=== PATIENT | female | born 1960 | race Caucasian/White ===

== ENCOUNTER 2022-05-30 07:55 | Outpatient (REF) | payer OTHER, SELFPAY | END 2022-05-30 07:56 | disposition home or self-care (01) | LOC: HO.SH 07:55 | PROVIDERS: Visit Provider Physician Assistant | DX: Z01.118 Encounter for examination of ears and hearing with other abnormal findings (principal); H90.3 Sensorineural hearing loss, bilateral | CPT/HCPCS: 92557; 92567; 92588 ==

== ENCOUNTER 2023-04-09 13:05 | Outpatient (AMB) | payer OTHER, SELFPAY ==
--- NOTE | 2023-04-09 13:07 | A.OFFVIS_ITS ---
Intake Intake Visit Reasons: Hx of stones (old Dr. Álvarez pt) Intake Note: New Patient presents for initial visit history of stones (previous Dr. Álvarez patient) Urology Medications: none Blood Thinner: none Service Employee Required: No Accompanied by: Self / Same As Patient Allergies No Known Allergies [No Known Allergies*] Allergy (Unverified 04/09/23 13:24) Medication List - Last Reconciled 04/09/23 by JUS Barboza alendronate 35 mg PO QWEEK cholecalciferol (vitamin D3) 100 mcg PO DAILY dicyclomine 10 mg PO Q6H PRN fluticasone propionate 50 mcg/actuation sprays intranasal loratadine (Claritin) 10 mg PO DAILY omeprazole 20 mg PO QAM HPI HPI Comments History of Present Illness Details Ivet Garcia is a very pleasant 62-year-old female patient of Dr. Myers. She has a past medical history of osteoporosis, GERD, and seasonal allergies. She presents to the office today as a new patient for her longstanding history of nephrolithiasis. In discussion with the patient today she reports to be doing and feeling well. She reports noting over the last couple of months to be having some dull discomfort to her right-sided flank area. In review of patient's chart it appears last imaging from 2019 normal renal ultrasound with no nephrolithiasis noted. In office urinalysis today reviewed with the patient today. 3+ microscopic hematuria otherwise within normal limits. Discussed She otherwise denies any urinary issues or concerns at this time. he denies urinary urgency, urinary frequency, incontinence, nocturia, hematuria, dysuria, foul smelling urine, changes to urinary stream, flank pain, fever, and or chills. She is happy with her current voiding parameters. She reports a previous surgical history for nephrolithiasis in 2013 and again in 2019. When asked she reports to be drinking plenty of water daily. She reports read adding 1 oz of lemon juice to water daily. She does report intermittent episodes of getting up at night to urinate however does not find this bothersome and reports episodes 1 possibly 2 times per night however it is not every night. She otherwise offers no other issues or concerns at this time. [facility] Medical History (Updated 04/09/23 @ 13:59 by JUS Barboza) Seasonal allergic rhinitis Osteoporosis GERD (gastroesophageal reflux disease) Review of Systems Const All systems reviewed & are unremarkable except as noted in HPI and below Eyes Reports no additional complaints ENT Reports no additional complaints Card Reports no additional complaints Resp Reports no additional complaints GI Reports as per HPI Reports as per HPI Musc Reports no additional complaints Neuro Reports no additional complaints Psych Reports no additional complaints Endo Reports no additional complaints Chato/Lymph Reports no additional complaints Aller/Immun Reports no additional complaints Physical Exam Const General: cooperative, healthy appearing, comfortable, no acute distress, well developed, alert and awake Orientation/consciousness: patient oriented x3 Limitations: no limitations HEENT Head: Yes normal to inspection, Yes normocephalic and Yes atraumatic Ears: hearing grossly normal bilaterally Eyes General: appearance normal, both eyes and all related structures Neck Neck: Yes normal visual inspection and Yes trachea midline Chest Chest palpation & inspection: normal inspection of the chest Resp Effort & Inspection: normal respiratory effort and able to speak in complete sentences Cardio Rate: regular rate GI Inspection: Yes normal to inspection General: Yes no CVA tenderness Back/Spine/Pelvis Back: no CVA tenderness Skin General skin exam: no rashes or lesions noted Neuro General: patient oriented x3 Extrem General: Yes normal to inspection Psych Appearance: grossly normal and well kempt Mental Status: mental status grossly normal Speech and movement: Normal speech and movement present and Clear speech present Affect: normal affect Attitude: cooperative Thought process: Normal thought process present Thought content: Normal thought content present Insight: Good insight present (Psych) Judgement: Good judgement present (Psych) Results AMB Urinalysis, Automated UA Leukoctes 0 Lolita/uL Last Edit by Raiing on 04/09/23 13:26 UA Nitrite Last Edit by Raiing on 04/09/23 13:26 UA Urobilinogen 0.2 mg/dL Last Edit by Raiing on 04/09/23 13:26 UA Protein 0 mg/dL Last Edit by Raiing on 04/09/23 13:26 UA pH 6.0 Last Edit by Raiing on 04/09/23 13:26 UA Blood 200 Donald/uL Last Edit by Raiing on 04/09/23 13:26 UA Specific [place]un[place] 1.030 Last Edit by Raiing on 04/09/23 13:26 UA Ketone Last Edit by Randy Weldon on 04/09/23 13:26 UA Bilirubin 0 mg/dL Last Edit by Randy Weldon on 04/09/23 13:26 UA Glucose 0 mg/dL Last Edit by Randy Weldon on 04/09/23 13:26 Results Reviewed Results Reviewed: Laboratory Last Values Urine pH (Auto) 6.0 04/09/23 13:21 Specific Ma[place] (Auto) 1.030 04/09/23 13:21 Urine Protein (Auto) 0 mg/dL 04/09/23 13:21 Glucose (UA)(Auto) 0 mg/dL 04/09/23 13:21 Urine Blood (Auto) 200 Donald/uL 04/09/23 13:21 Urine Bilirubin (Auto) 0 mg/dL 04/09/23 13:21 Urine Urobilinogen (Auto) 0.2 mg/dL 04/09/23 13:21 Leukocyte Esterase (Auto) 0 Lolita/uL 04/09/23 13:21 Assessment & Plan Assessment & Plan (1) Nephrolithiasis: Code(s): N20.0 - Calculus of kidney (2) Microscopic hematuria: Code(s): R31.29 - Other microscopic hematuria Plan In office urinalysis results reviewed with the patient today. Patient reports be happy with current voiding parameters. Discussed at length potential causes for microscopic hematuria Will obtain renal ultrasound for further assessment evaluation. Discussed, educated, encouraged on the importance of drinking plenty of water daily. Continue adding one ounce of lemon juice to water daily Follow-up in 1-2 months with imaging to be completed prior; or sooner with any issues, concerns, and or questions. Orders: Orders AMB Urinalysis Automated Today Z13.9 - Encounter for screening, unspecified US renal BI Today N20.0 - Calculus of kidney Patient Instructions: The patient had an opportunity to ask questions regarding the treatment plan. All questions were answered. Physical exam, labs, and imaging were discussed and reviewed in detail. As well as risks, benefits, and discussion of treatment choices. No major barriers to understanding were identified. The patient expressed understanding and agreement with the above treatment plan. The patient was made aware they should contact our office by phone for worsening of their current condition, the appearance of new symptoms, or with any questions or concerns. Compliance is encouraged with any medications and follow up testing that is ordered. It is a privilege to be allowed the opportunity to participate in? your urological care.? Again, if you have any questions or concerns If you have any questions or concerns please do not hesitate to contact me. The office is [phone]. This note is constructed using voice recognition software. While every effort has been made to ensure accuracy senior medical transcriptionist errors may have been included. Yours sincerely, JUS Barboza Coding Level of Care Code New Pt Level 3 (20509) Diagnoses Nephrolithiasis N20.0 Microscopic hematuria R31.29
== END 2023-04-09 13:41 | disposition home or self-care (01) ==
PROVIDERS: PCP Internal Medicine; Visit Provider Nurse Practitioner Family
DX: N20.0 Calculus of kidney (principal); R31.29 Other microscopic hematuria
CPT/HCPCS: 99203

== ENCOUNTER → 2023-04-09 13:05 | Outpatient (BNVA) | payer OTHER, SELFPAY | PROVIDERS: PCP Internal Medicine; Visit Provider Nurse Practitioner Family | DX: R31.29 Other microscopic hematuria (principal); N20.0 Calculus of kidney | CPT/HCPCS: 81003 ==

== ENCOUNTER 2023-04-18 08:08 | Outpatient (AMB) | payer OTHER, SELFPAY ==
[2023-04-18 08:10] VITALS: BP 98/72; PULSE 75; O2SAT 99; BMI 20.1
--- NOTE | 2023-04-18 08:10 | MHC.OFFVIS ---
Intake Vital Signs 04/18/23 08:10 Height 4 ft 11 in Weight 99 lb 6 oz BMI 20.1 BP 98/72 Blood Pressure Location Rt brachial Position Sitting Pulse 75 Pulse Source Pulse Oximeter Pulse Oximetry (%) 99 Intake Visit Reasons: ENP-Memory Issues -Confirmed Intake Note: Patient presents for memory issues. Patient states I call it menopause some call it brain fog my mom also had dementia and i have a fear of that. I've been going back and forth with doctors trying to figure out what it is. Allergies No Known Allergies [No Known Allergies*] Allergy (Unverified 04/18/23 08:14) HPI HPI Comments History of Present Illness Details Right-handed 62-yr-old female presents for neurological evaluation of memory loss. Pt reports that she has started noticing cognitive changes after she went through menopause in approx [id number]. She states the cognitive difficulty is slowly progressing. 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 She is able to go back and correct the errors. She tries to consciously think about what she about to type but still types the wrong letters. She finds herself not being able to spell correctly, she has to google how to spell certain words. She finds that when she is getting ready in the morning, she tends to think about what she needs to do for the day, while she is getting ready for the day. Before she could remember this to do this, but now has to keep a notebook in her bathroom, so that she does not forget. At work, if someone interrupts her while she is working to ask her to do something, she will need to right it down or else she will forget it. This is all very bothersome to her. She feels frustrated as she has not been given a formal reason/diagnosis for all of this. She states she has been told she is depressed, but does not feel depressed. Her children feel she may have ADD/ADHD. Does endorse anxiety, a need to keep everything under her control well-controlled. 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 working. She completed [employer]- states was an average student, was on the [email or web address]. Completed some college on and off- when younger, she dropped out as she could not do a public speaking class- she could not do public speaking. Notes that even before this, she could not enter a classroom from the front of a class/room, and would have to enter the classroom from the back. After, she took night classes on and off. She notes that she is better able to manage the social anxiety= can now run meetings at work. She is better able to manage this. She is trying to exercise, but it is hard with working 2 jobs. Pt's mother in 2017 at age 88 w/ dementia and Parkinsonism- this worries pt, as she states she has inherited many of her mother's conditions. She has also been having a lot of headaches for a long time, and hopes we can address these at some point as well. She endorses some dizziness and hearing loss. She is prone to GI upset and flatulence- she takes dicyclomine most mornings to prvenet any flatulence while at work. [facility]LY [facility], [facility]1983 Medical History (Updated 05/08/23 @ 21:04 by DIANN Greer) Hearing loss Seasonal allergic rhinitis Osteoporosis GERD (gastroesophageal reflux disease) Surgical History (Updated 04/18/23 @ 08:15 by ANAT Enamorado) H/O lithotripsy H/O lumpectomy Family History (Updated 04/18/23 @ 08:17 by ANAT Enamorado) Father Prostate CA Diabetes HTN (hypertension) Mother HTN (hypertension) Parkinson disease Dementia Sister Thyroid cancer Social History (Updated 04/18/23 @ 08:18 by ANAT Enamorado) Alcohol intake: current Patient Tobacco Use Status: Never used Tobacco Review of Systems Const Details: See scanned ROS form Physical Exam Vital Signs: Last Vital Signs Pulse 75 04/18/23 08:10 BP 98/72 04/18/23 08:10 Pulse Ox 99 04/18/23 08:10 BMI result Body Mass Index 20.1 Const General: cooperative and no acute distress Orientation/consciousness: patient oriented x3 HEENT Head: Yes normocephalic Resp Effort & Inspection: normal respiratory effort and able to speak in complete sentences Neuro General: patient oriented x3, CN's II-XI intact bilaterally and deep tendon reflexes 2+ bilaterally Gait exam (Neuro): Normal gait present Motor exam (neuro): 5/5 motor strength present throughout Psych Appearance: grossly normal Mental Status: mental status grossly normal Speech and movement: Normal speech and movement present Affect: normal affect Attitude: cooperative Thought process: Normal thought process present Thought content: Normal thought content present Assessment & Plan Assessment & Plan (1) Cognitive dysfunction: Code(s): F09 - Unspecified mental disorder due to known physiological condition (2) Headache: Code(s): R51.9 - Headache, unspecified (3) Anxiety: Code(s): F41.9 - Anxiety disorder, unspecified Plan Will check labs for common etiologies of cognitive difficulties. Will check brain MRI to assess for any central etiologies of pt's worsening cognitive s/s. Pt advised to undergo comprehensive neuropsych eval. Check MMSE and Clock at f/u. I have asked pt to complete our headache questionnaire and headache diary so we can better assess this at f/u. Future considerations EEG. Coding Level of Care Code New Pt Level 4 (65410) Diagnoses Cognitive dysfunction F09 Headache R51.9 Anxiety F41.9
== END 2023-04-18 09:32 | disposition home or self-care (01) ==
PROVIDERS: PCP Internal Medicine; Visit Provider Nurse Practitioner Family
DX: R41.89 Other symptoms and signs involving cognitive functions and awareness (principal); R51.9 Headache, unspecified; F41.9 Anxiety disorder, unspecified
CPT/HCPCS: 99204

== ENCOUNTER → 2023-04-18 08:08 | Outpatient (BNVA) | payer OTHER, SELFPAY | PROVIDERS: PCP Internal Medicine; Visit Provider Nurse Practitioner Family ==

== ENCOUNTER 2023-04-25 08:05 | Outpatient (REF) | payer OTHER, SELFPAY ==
--- NOTE | ~2023-04-25 | US_ITS ---
EXAMINATION: US RETROPERITONEAL LIMITED (RENAL ONLY) CLINICAL INFORMATION: Calculus of kidney. COMPARISON: Renal ultrasound 02/24/2020 TECHNIQUE: Real-time imaging of the kidneys. FINDINGS: RIGHT KIDNEY: 10.6 x 3.4 x 4.6 cm (SAG x AP x TRV). The kidney is normal in size, contour, and echogenicity. Renal cortical thickness is normal. No focal parenchymal lesions or hydronephrosis. Nonobstructing renal stone measuring 0.4 cm, new from prior. LEFT KIDNEY: 10.7 x 4.2 x 5.2 cm (SAG x AP x TRV). The kidney is normal in size, contour, and echogenicity. Renal cortical thickness is normal. No calculi or focal parenchymal lesions. No hydronephrosis. Incidentally noted extrarenal pelvis. US/US renal BI IMPRESSION: Nonobstructing right renal stone measuring 0.4 cm new from prior
== END 2023-04-25 08:06 | disposition home or self-care (01) ==
LOC: HO.US 08:05
PROVIDERS: PCP Family Medicine; Visit Provider Nurse Practitioner Family
DX: N20.0 Calculus of kidney (principal)
CPT/HCPCS: 76775

== ENCOUNTER 2023-05-16 11:06 | Outpatient (AMB) | payer OTHER, SELFPAY ==
--- NOTE | 2023-05-16 11:05 | A.OFFVIS_ITS ---
Intake Intake Visit Reasons: 4w/US(set) Intake Note: Patient presents for follow up visit history of stones/ultrasound (imaging 04/25/23) Urology Medications: none Blood Thinner: none Nutritional Services Cook Required: No Accompanied by: Self / Same As Patient Allergies No Known Allergies [No Known Allergies*] Allergy (Unverified 05/16/23 21:00) Medication List - Last Reconciled 05/16/23 by DIANN Barboza-ALISON alendronate 35 mg PO QWEEK cholecalciferol (vitamin D3) 100 mcg PO DAILY dicyclomine 10 mg PO Q6H PRN doxycycline monohydrate 100 mg PO BID fluticasone propionate 50 mcg/actuation sprays intranasal loratadine (Claritin) 10 mg PO DAILY omeprazole 20 mg PO QAM pyridoxine (vitamin B6) 100 mg PO DAILY 90 days HPI HPI Comments History of Present Illness Details Ivet Garcia is a very pleasant 62-year-old female patient of Dr. Myers. She has a past medical history of osteoporosis, GERD, and seasonal allergies. She presents to the office today for follow-up. Of note, patient was seen approximately 1 month ago as a new patient for her longstanding history of nephrolithiasis at which time a renal ultrasound was ordered for further assessment evaluation. These results were reviewed with the patient today. Right kidney with no lesions or hydronephrosis. Nonobstructing right renal stone measuring approximately 4 mm. Left kidney with no calculi, lesions, and or hydronephrosis. Incidentally noted extrarenal pelvis. In discussion with the patient today she reports to be doing and feeling well. She reports noting no flank pain since her last follow-up here. Discussed at length surveillance monitoring verses surgical intervention. In office urinalysis today reviewed with the patient today. She otherwise denies any urinary issues or concerns at this time. She denies urinary urgency, urinary frequency, incontinence, nocturia, hematuria, dysuria, foul smelling urine, changes to urinary stream, flank pain, fever, and or chills. She is happy with her current voiding parameters. She reports a previous surgical history for nephrolithiasis in 2013 and again in 2019. When asked she reports to be drinking plenty of water daily. She reports adding 1 oz of lemon juice to water daily. She does report intermittent episodes of getting up at night to urinate however does not find this bothersome and reports episodes 1 possibly 2 times per night however it is not every night. She otherwise offers no other issues or concerns at this time. [facility] Medical History Hearing loss Seasonal allergic rhinitis Osteoporosis GERD (gastroesophageal reflux disease) Surgical History H/O lithotripsy H/O lumpectomy Family History Father Prostate CA Diabetes HTN (hypertension) Mother HTN (hypertension) Parkinson disease Dementia Sister Thyroid cancer Social History Alcohol intake: current Patient Tobacco Use Status: Never used Tobacco Review of Systems Const All systems reviewed & are unremarkable except as noted in HPI and below Eyes Reports no additional complaints ENT Reports no additional complaints Card Reports no additional complaints Resp Reports no additional complaints GI Reports as per HPI Reports as per HPI Musc Reports no additional complaints Neuro Reports no additional complaints Psych Reports no additional complaints Endo Reports no additional complaints Chato/Lymph Reports no additional complaints Aller/Immun Reports no additional complaints Physical Exam Const General: cooperative, healthy appearing, comfortable, no acute distress, well developed, alert and awake Orientation/consciousness: patient oriented x3 Limitations: no limitations HEENT Head: Yes normal to inspection, Yes normocephalic and Yes atraumatic Ears: hearing grossly normal bilaterally Eyes General: appearance normal, both eyes and all related structures Neck Neck: Yes normal visual inspection and Yes trachea midline Chest Chest palpation & inspection: normal inspection of the chest Resp Effort & Inspection: normal respiratory effort and able to speak in complete sentences Cardio Rate: regular rate GI Inspection: Yes normal to inspection General: Yes no CVA tenderness Back/Spine/Pelvis Back: no CVA tenderness Skin General skin exam: no rashes or lesions noted Neuro General: patient oriented x3 Extrem General: Yes normal to inspection Psych Appearance: grossly normal and well kempt Mental Status: mental status grossly normal Speech and movement: Normal speech and movement present and Clear speech present Affect: normal affect Attitude: cooperative Thought process: Normal thought process present Thought content: Normal thought content present Insight: Good insight present (Psych) Judgement: Good judgement present (Psych) Results AMB Urinalysis, Automated UA Leukoctes 0 Lolita/uL Last Edit by TYSON Security on 05/16/23 11:31 UA Nitrite Negative Last Edit by TYSON Security on 05/16/23 11:31 UA Urobilinogen 0.2 mg/dL Last Edit by TIM Groupaure on 05/16/23 11:31 UA Protein 0 mg/dL Last Edit by TYSON Security on 05/16/23 11:31 UA pH 6.0 Last Edit by TYSON Security on 05/16/23 11:31 UA Blood 80 Donald/uL Last Edit by TYSON Security on 05/16/23 11:31 UA Specific [place] 1.010 Last Edit by TYSON Security on 05/16/23 11:31 UA Ketone Negative Last Edit by TYSON Security on 05/16/23 11:31 UA Bilirubin 0 mg/dL Last Edit by TYSON Security on 05/16/23 11:31 UA Glucose 0 mg/dL Last Edit by TYSON Security on 05/16/23 11:31 Results Reviewed Results Reviewed: Laboratory Last Values Urine pH (Auto) 6.0 05/16/23 11:12 Specific [place] (Auto) 1.010 05/16/23 11:12 Urine Protein (Auto) 0 mg/dL 05/16/23 11:12 Glucose (UA)(Auto) 0 mg/dL 05/16/23 11:12 Urine Ketones (Auto) Negative 05/16/23 11:12 Urine Blood (Auto) 80 Donald/uL 05/16/23 11:12 Urine Nitrite (Auto) Negative 05/16/23 11:12 Urine Bilirubin (Auto) 0 mg/dL 05/16/23 11:12 Urine Urobilinogen (Auto) 0.2 mg/dL 05/16/23 11:12 Leukocyte Esterase (Auto) 0 Lolita/uL 05/16/23 11:12 Date of Service: 04/25/23 EXAMINATION: US RETROPERITONEAL LIMITED (RENAL ONLY) CLINICAL INFORMATION: Calculus of kidney. COMPARISON: Renal ultrasound 02/24/2020 TECHNIQUE: Real-time imaging of the kidneys. FINDINGS: RIGHT KIDNEY: 10.6 x 3.4 x 4.6 cm (SAG x AP x TRV). The kidney is normal in size, contour, and echogenicity. Renal cortical thickness is normal. No focal parenchymal lesions or hydronephrosis. Nonobstructing renal stone measuring 0.4 cm, new from prior. LEFT KIDNEY: 10.7 x 4.2 x 5.2 cm (SAG x AP x TRV). The kidney is normal in size, contour, and echogenicity. Renal cortical thickness is normal. No calculi or focal parenchymal lesions. No hydronephrosis. Incidentally noted extrarenal pelvis. US/US renal BI IMPRESSION: Nonobstructing right renal stone measuring 0.4 cm new from prior Assessment & Plan Assessment & Plan (1) Nephrolithiasis: Code(s): N20.0 - Calculus of kidney (2) Microscopic hematuria: Code(s): R31.29 - Other microscopic hematuria Plan In office urinalysis results reviewed with the patient today; as noted above. Recent renal ultrasound results reviewed with the patient today; as noted above. Will continue with surveillance monitoring Will obtain renal ultrasound in 6 months Educated, encouraged, and instructed on the importance of continuing to drink plenty of water daily. Continue adding 1 oz of lemon juice to water daily. Start vitamin B6 as discussed and prescribed. Follow-up in 6 months with imaging to be completed prior; or sooner with any issues, concerns, and or questions. Orders: Orders AMB Urinalysis Automated Today Z13.9 - Encounter for screening, unspecified US renal BI 6 Months N20.0 - Calculus of kidney Medications: New pyridoxine (vitamin B6) 100 mg PO DAILY 90 days 90 tabs 2RF N20.0 - Calculus of kidney Patient Instructions: The patient had an opportunity to ask questions regarding the treatment plan. All questions were answered. Physical exam, labs, and imaging were discussed and reviewed in detail. As well as risks, benefits, and discussion of treatment choices. No major barriers to understanding were identified. The patient expressed understanding and agreement with the above treatment plan. The patient was made aware they should contact our office by phone for worsening of their current condition, the appearance of new symptoms, or with any questions or concerns. Compliance is encouraged with any medications and follow up testing that is ordered. It is a privilege to be allowed the opportunity to participate in? your urological care.? Again, if you have any questions or concerns If you have any questions or concerns please do not hesitate to contact me. The office is [phone]. This note is constructed using voice recognition software. While every effort has been made to ensure accuracy milk drying machine operator errors may have been included. Yours sincerely, JUS Barboza Coding Level of Care Code Est Pt Level 4 (85357) Diagnoses Nephrolithiasis N20.0 Microscopic hematuria R31.29
== END 2023-05-16 11:54 | disposition home or self-care (01) ==
LOC: HO.HUSH 11:06
PROVIDERS: PCP Family Medicine; Visit Provider Nurse Practitioner Family
DX: N20.0 Calculus of kidney (principal); R31.29 Other microscopic hematuria
CPT/HCPCS: 99214

== ENCOUNTER → 2023-05-16 11:06 | Outpatient (BNVA) | payer OTHER, SELFPAY | PROVIDERS: PCP Family Medicine; Visit Provider Nurse Practitioner Family | DX: R31.29 Other microscopic hematuria (principal); N20.0 Calculus of kidney | CPT/HCPCS: 81003 ==

== ENCOUNTER 2023-07-04 08:59 | Outpatient (REF) | payer OTHER, SELFPAY ==
--- NOTE | ~2023-07-04 | MR_ITS ---
EXAMINATION: MR HEAD/BRAIN WITHOUT CONTRAST CLINICAL INFORMATION: F09 - Unspecified mental disorder due to known physiological condition. Memory issues. Difficulty spelling. COMPARISON: None available. TECHNIQUE: Unenhanced MRI of the brain. FINDINGS: Mild diffuse commensurate prominence of ventricles and sulci is noted. No qualitative disproportionate prominence of the temporal horns of the lateral ventricle is noted. No intracranial hemorrhage, tumors or acute infarcts visualized. A minimal number scattered punctate supratentorial white matter T2 hyperintensity areas are noted and are of uncertain clinical significance. Mild diffuse perivascular prominence is present within the cerebral hemispheres. Susceptibility weighted images reveal no evidence of acute or chronic hemorrhage within the brain parenchyma. The craniocervical junction cerebellar tonsils are normal in appearance. The pituitary is normal in appearance. No suspicious marrow abnormalities identified. Normal flow-related signal intensity is identified in the major intracranial vessels and dural sinuses. Bilateral ocular lens extractions are noted. No significant mucosal thickening or retained secretions identified within the paranasal sinuses, mastoid air cells and middle ear cavities. MR/MR head/brain wo con IMPRESSION: Mild diffuse parenchymal volume loss of the brain. No evidence of disproportionate hippocampal volume loss. No specific neurodegenerative pattern of parenchymal volume loss identified.
== END 2023-07-04 09:00 | disposition home or self-care (01) ==
LOC: HO.MRI 08:59
PROVIDERS: PCP Family Medicine; Visit Provider Nurse Practitioner Family
DX: F09 Unspecified mental disorder due to known physiological condition (principal); R51.9 Headache, unspecified; R42 Dizziness and giddiness; H91.90 Unspecified hearing loss, unspecified ear
CPT/HCPCS: 70551

== ENCOUNTER 2023-08-21 08:02 | Outpatient (AMB) | payer OTHER, SELFPAY ==
--- NOTE | 2023-08-21 08:04 | A.OFFVIS_ITS ---
Intake Vital Signs 08/21/23 08:11 Height 4 ft 11 in Weight 99 lb BMI 20.0 BP 102/82 Blood Pressure Location Lt brachial Position Sitting Pulse 74 Pulse Source Pulse Oximeter Pulse Oximetry (%) 99 Oxygen Delivery Method Room Air Intake Visit Reasons: 4 mnts f/u appt Intake Note: Patient presents for 4 month follow up. just the usual why I'm here for Allergies No Known Allergies [No Known Allergies*] Allergy (Unverified 08/21/23 08:13) Medication List - Last Reconciled 08/21/23 by DIANN Greer alendronate 35 mg PO QWEEK cholecalciferol (vitamin D3) 100 mcg PO DAILY dicyclomine 10 mg PO Q6H PRN doxycycline monohydrate 100 mg PO BID fluticasone propionate 50 mcg/actuation sprays intranasal loratadine (Claritin) 10 mg PO DAILY omeprazole 20 mg PO QAM pyridoxine (vitamin B6) 100 mg PO DAILY 90 days HPI HPI Comments History of Present Illness Details 62-yr-old female presents for f/u visit. Pt denies any significant interval medical changes. Pt reports that she continues to have forgetful moments. She does note that when these things happen, they can make her more anxious or feel stupid - she is awrae that she can be harder on herself than she would be to others. For instance, she was doing errand sin her home, was doing laundry for which she is using a timer. 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 But then when the timer went off, she forgot why it was going off, thought maybe it was for the laundry and forgot that she had set it to remind her to turn off the car. She also notes moments of forgetting something she has just done, for instance wants to wash the cup which she just made tea in to take for work. She may put things away say when her is cooking, even though he still is using it, as she needs to put things away. She is still very active. 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 She tries to eat well. 07/04/23, MR/MR head/brain wo con IMPRESSION: A minimal number scattered punctate supratentorial white matter T2 hyperintensity areas are noted and are of uncertain clinical significance. Mild diffuse parenchymal volume loss of the brain. No evidence of disproportionate hippocampal volume loss. No specific neurodegenerative pattern of parenchymal volume loss identified. [facility] Medical History Hearing loss Seasonal allergic rhinitis Osteoporosis GERD (gastroesophageal reflux disease) Surgical History H/O lithotripsy H/O lumpectomy Family History Father Prostate CA Diabetes HTN (hypertension) Mother HTN (hypertension) Parkinson disease Dementia Sister Thyroid cancer Social History Alcohol intake: current Patient Tobacco Use Status: Never used Tobacco Review of Systems Const All systems reviewed & are unremarkable except as noted in HPI and below Physical Exam Vital Signs: Last Vital Signs Pulse 74 08/21/23 08:11 BP 102/82 08/21/23 08:11 Pulse Ox 99 08/21/23 08:11 Oxygen Delivery Method Room Air 08/21/23 08:11 BMI result Body Mass Index 20.0 Const General: cooperative and no acute distress Orientation/consciousness: patient oriented x3 HEENT Head: Yes normocephalic Resp Effort & Inspection: normal respiratory effort and able to speak in complete sentences Neuro General: patient oriented x3, gait normal and CN's II-XI intact bilaterally Cognition (Neuro): normal cognition Motor exam (neuro): 5/5 motor strength present throughout Psych Appearance: grossly normal Mental Status: mental status grossly normal Speech and movement: Normal speech and movement present Affect: normal affect Attitude: cooperative Thought process: Normal thought process present Thought content: Normal thought content present Insight: Good insight present (Psych) Judgement: Good judgement present (Psych) Orientation What is the (year) (season) (date) (day) (month)?: year, season, date, day and month Where are we (state) (county) (town or city) (hospital) (floor)?: state, county, town or city, hospital/clinic and floor Registration Name of 3 unrelated objects clearly and slowly, then ask patient to repeat all 3 of them. (1st repeat determines score. Make sure they can repeat all three): object 1, object 2 and object 3 Attention & Calculation (CHOOSE ONE) Spell WORLD backwards (DLROW): 5 letters Recall Ask patient to repeat the 3 items from question #3.: object 1, object 2 and object 3 Language Show patient a wristwatch & ask what it is. Repeat for pencil.: watch and pencil Ask the patient to repeat the phrase 'No ifs, ands, or buts' after you.: correct Ask the patient to 'take a piece of paper with their right hand' 'fold paper in half' 'place paper on floor': take paper in right hand, fold paper in half and place paper on floor Print the sentence 'CLOSE YOUR EYES' on a piece. If patient actually closes eyes then score.: followed written direction Give patient a blank piece of paper & ask to write a sentence. Score if it contains a noun & verb.: sentence contains subject and verb Ask patient to copy figure of intersecting pentagons exactly. Score if all 10 angles & 2 intersects are included.: all 10 angles present & 2 are intersected Score Score: 30 Assessment & Plan Assessment & Plan (1) Cognitive dysfunction: Code(s): F09 - Unspecified mental disorder due to known physiological condition (2) Anxiety: Code(s): F41.9 - Anxiety disorder, unspecified (3) Headache: Code(s): R51.9 - Headache, unspecified Plan Again- check labs for common etiologies of cognitive difficulties- lab slips given to pt. Reviewed brain MRI- nonspecifc mild white matter changes and volume loss. No evidence for a specific neurodegenerative process. Comprehensive neuropsych eval when able- pt is on waitlist at [facility] (cuurently 7- 9 month wait). MMSE- 30/30- reassuring. Stressed importance of regular physical activity, maintaining a helathy diet, socialization to optimize cognitive well-being. Address headaches at her next appt. Future considerations: Trialing anti-anxiety tx. f/u in 6 months or sooner prn. Coding Level of Care Code Est Pt Level 4 (71124) Diagnoses Cognitive dysfunction F09 Anxiety F41.9 Headache R51.9
[2023-08-21 08:11] VITALS: BP 102/82; PULSE 74; O2SAT 99
== END 2023-08-21 09:05 | disposition home or self-care (01) ==
PROVIDERS: PCP Internal Medicine; Visit Provider Nurse Practitioner Family
DX: R41.89 Other symptoms and signs involving cognitive functions and awareness (principal); F41.9 Anxiety disorder, unspecified; R51.9 Headache, unspecified
CPT/HCPCS: 99214

== ENCOUNTER → 2023-08-21 08:02 | Outpatient (BNVA) | payer OTHER, SELFPAY | PROVIDERS: PCP Internal Medicine; Visit Provider Nurse Practitioner Family ==

== ENCOUNTER 2023-10-30 09:32 | Outpatient (REF) | payer OTHER, SELFPAY ==
--- NOTE | ~2023-10-30 | US_ITS ---
EXAMINATION: US RETROPERITONEAL LIMITED (RENAL ONLY) CLINICAL INFORMATION: Calculus of kidney. COMPARISON: Renal ultrasound 04/25/2023 and 02/24/2020. X-ray KUB 01/15/2019. X-ray abdomen 01/01/2019. TECHNIQUE: Real-time imaging of the kidneys. FINDINGS: RIGHT KIDNEY: 10.2 x 4.3 x 5.3 cm (SAG x AP x TRV). The kidney is normal in size, contour, and echogenicity. Renal cortical thickness is normal. No focal parenchymal lesions or hydronephrosis. Nonobstructing 1 cm calculus in the lower pole. LEFT KIDNEY: 10.3 x 3.8 x 5.7 cm (SAG x AP x TRV). The kidney is normal in size, contour, and echogenicity. Renal cortical thickness is normal. No calculi or focal parenchymal lesions. No hydronephrosis. Extrarenal pelvis with minimal pelviectasis. US/US renal BI IMPRESSION: Nonobstructing 1 cm calculus in the lower pole of the right kidney.
== END 2023-10-30 09:33 | disposition home or self-care (01) ==
LOC: HO.US 09:32
PROVIDERS: PCP Internal Medicine; Visit Provider Nurse Practitioner Family
DX: N20.0 Calculus of kidney (principal)
CPT/HCPCS: 76775

== ENCOUNTER 2023-11-14 08:26 | Outpatient (AMB) | payer OTHER, SELFPAY ==
--- NOTE | 2023-11-14 08:31 | MHC.OFFVIS ---
Intake Intake Visit Reasons: 6m/US(set) Intake Note: Patient presents for follow up visit history of stones/ultrasound Imagin10/30/23 Urology Medications: Vitamin B6 Blood Thinner: none Swine Extension Field Specialist Required: No Accompanied by: Self / Same As Patient Allergies No Known Allergies [No Known Allergies*] Allergy (Unverified 11/14/23 09:01) Medication List - Last Reconciled 11/14/23 by JUS Barboza alendronate 35 mg PO QWEEK cholecalciferol (vitamin D3) 100 mcg PO DAILY dicyclomine 10 mg PO Q6H PRN doxycycline monohydrate 100 mg PO BID fluticasone propionate 50 mcg/actuation sprays intranasal loratadine (Claritin) 10 mg PO DAILY omeprazole 20 mg PO QAM pyridoxine (vitamin B6) 100 mg PO DAILY 90 days HPI HPI Comments History of Present Illness Details Ivet Garcia is a very pleasant 62-year-old female patient of Dr. Myers. She has a past medical history of osteoporosis, GERD, and seasonal allergies. She presents to the office today for follow-up of her nephrolithiasis. Recent renal imaging results reviewed with the patient today. Right kidney with no lesions or hydronephrosis. Nonobstructing 1 cm calculus in the lower pole. Left kidney with no calculi or lesions. In discussion with the patient today she reports to be doing and feeling well. She denies any bothersome urinary issues or concerns. She denies urinary urgency, urinary frequency, incontinence, nocturia, hematuria, dysuria, foul smelling urine, changes to urinary stream, flank pain, fever, and or chills. She is happy with her current voiding parameters. She discusses her previous surgical history for nephrolithiasis in 2013 and again in 2019. When asked she reports to be drinking plenty of water daily. She reports adding 1 oz of lemon juice to water daily. She otherwise offers no other issues or concerns at this time. [facility] Medical History Hearing loss Seasonal allergic rhinitis Osteoporosis GERD (gastroesophageal reflux disease) Surgical History H/O lithotripsy H/O lumpectomy Family History Father Prostate CA Diabetes HTN (hypertension) Mother HTN (hypertension) Parkinson disease Dementia Sister Thyroid cancer Social History Alcohol intake: current Patient Tobacco Use Status: Never used Tobacco Review of Systems Const All systems reviewed & are unremarkable except as noted in HPI and below Eyes Reports no additional complaints ENT Reports no additional complaints Card Reports no additional complaints Resp Reports no additional complaints GI Reports as per HPI Reports as per HPI Musc Reports no additional complaints Neuro Reports no additional complaints Psych Reports no additional complaints Endo Reports no additional complaints Chato/Lymph Reports no additional complaints Aller/Immun Reports no additional complaints Physical Exam Const General: cooperative, healthy appearing, comfortable, no acute distress, well developed, alert and awake Orientation/consciousness: patient oriented x3 Limitations: no limitations HEENT Head: Yes normal to inspection, Yes normocephalic and Yes atraumatic Ears: hearing grossly normal bilaterally Eyes General: appearance normal, both eyes and all related structures Neck Neck: Yes normal visual inspection and Yes trachea midline Chest Chest palpation & inspection: normal inspection of the chest Resp Effort & Inspection: normal respiratory effort and able to speak in complete sentences Cardio Rate: regular rate GI Inspection: Yes normal to inspection General: Yes no CVA tenderness Back/Spine/Pelvis Back: no CVA tenderness Skin General skin exam: no rashes or lesions noted Neuro General: patient oriented x3 Extrem General: Yes normal to inspection Psych Appearance: grossly normal and well kempt Mental Status: mental status grossly normal Speech and movement: Normal speech and movement present and Clear speech present Affect: normal affect Attitude: cooperative Thought process: Normal thought process present Thought content: Normal thought content present Insight: Fair insight present (Psych) Judgement: Fair judgement present (Psych) Results AMB Urinalysis, Automated UA Leukoctes 15 Lolita/uL Last Edit by Randy Weldon on 11/14/23 08:44 UA Nitrite Negative Last Edit by Randy Weldon on 11/14/23 08:44 UA Urobilinogen 0.2 mg/dL Last Edit by Randy Weldon on 11/14/23 08:44 UA Protein 0 mg/dL Last Edit by Randy Weldon on 11/14/23 08:44 UA pH 5.5 Last Edit by Randy Weldon on 11/14/23 08:44 UA Blood 200 Donald/uL Last Edit by Randy Weldon on 11/14/23 08:44 UA Specific [place] 1.020 Last Edit by Randy Weldon on 11/14/23 08:44 UA Ketone Negative Last Edit by Randy Weldon on 11/14/23 08:44 UA Bilirubin 0 mg/dL Last Edit by Randy Weldon on 11/14/23 08:44 UA Glucose 0 mg/dL Last Edit by Randy Weldon on 11/14/23 08:44 Results Reviewed Results Reviewed: Laboratory Last Values Urine pH (Auto) 5.5 11/14/23 08:36 Specific [place] (Auto) 1.020 11/14/23 08:36 Urine Protein (Auto) 0 mg/dL 11/14/23 08:36 Glucose (UA)(Auto) 0 mg/dL 11/14/23 08:36 Urine Ketones (Auto) Negative 11/14/23 08:36 Urine Blood (Auto) 200 Donald/uL 11/14/23 08:36 Urine Nitrite (Auto) Negative 11/14/23 08:36 Urine Bilirubin (Auto) 0 mg/dL 11/14/23 08:36 Urine Urobilinogen (Auto) 0.2 mg/dL 11/14/23 08:36 Leukocyte Esterase (Auto) 15 Lolita/uL 11/14/23 08:36 Date of Service: 10/30/23 Procedure(s): US renal BI FINDINGS: RIGHT KIDNEY: 10.2 x 4.3 x 5.3 cm (SAG x AP x TRV). The kidney is normal in size, contour, and echogenicity. Renal cortical thickness is normal. No focal parenchymal lesions or hydronephrosis. Nonobstructing 1 cm calculus in the lower pole. LEFT KIDNEY: 10.3 x 3.8 x 5.7 cm (SAG x AP x TRV). The kidney is normal in size, contour, and echogenicity. Renal cortical thickness is normal. No calculi or focal parenchymal lesions. No hydronephrosis. Extrarenal pelvis with minimal pelviectasis. IMPRESSION: Nonobstructing 1 cm calculus in the lower pole of the right kidney. Assessment & Plan Assessment & Plan (1) Nephrolithiasis: Code(s): N20.0 - Calculus of kidney (2) Microscopic hematuria: Code(s): R31.29 - Other microscopic hematuria Plan In office urinalysis results reviewed with the patient today; as noted above. Recent renal imaging results reviewed with the patient today; as noted above. Discussed increased stone burden. Discussed further workup with CT KUB versus surveillance monitoring; risks and benefits of these interventions were discussed. Will obtain CT KUB for further assessment evaluation. Discussed near future metabolic workup with 24 hour urine collection and labs. Discussed, educated, and stressed the importance of continuing to drink plenty of water daily. Continue adding 1 oz of lemon juice to water daily. Discussed possible near future surgical intervention regarding nephrolithiasis however will await CT KUB results for further assessment evaluation. Patient currently denies any bothersome urinary issues or concerns. Patient reports be happy with current voiding parameters. Follow-up in 1-3 months with imaging to be completed prior; or sooner with any issues, concerns, and or questions. Orders: Orders AMB Urinalysis Automated Today Z13.9 - Encounter for screening, unspecified CT kidney stone Today N20.0 - Calculus of kidney, R31.29 - Other microscopic hematuria Patient Instructions: The patient had an opportunity to ask questions regarding the treatment plan. All questions were answered. Physical exam, labs, and imaging were discussed and reviewed in detail. As well as risks, benefits, and discussion of treatment choices. No major barriers to understanding were identified. The patient expressed understanding and agreement with the above treatment plan. The patient was made aware they should contact our office by phone for worsening of their current condition, the appearance of new symptoms, or with any questions or concerns. Compliance is encouraged with any medications and follow up testing that is ordered. It is a privilege to be allowed the opportunity to participate in? your urological care.? Again, if you have any questions or concerns If you have any questions or concerns please do not hesitate to contact me. The office is [phone]. This note is constructed using voice recognition software. While every effort has been made to ensure accuracy mat tester errors may have been included. Yours sincerely, JUS Barboza Coding Level of Care Code Est Pt Level 3 (38566) Diagnoses Nephrolithiasis N20.0 Microscopic hematuria R31.29
== END 2023-11-14 09:01 | disposition home or self-care (01) ==
PROVIDERS: PCP Family Medicine; Visit Provider Nurse Practitioner Family
DX: N20.0 Calculus of kidney (principal); R31.29 Other microscopic hematuria
CPT/HCPCS: 99213

== ENCOUNTER → 2023-11-14 08:26 | Outpatient (BNVA) | payer OTHER, SELFPAY | PROVIDERS: PCP Family Medicine; Visit Provider Nurse Practitioner Family | DX: N20.0 Calculus of kidney (principal); R31.29 Other microscopic hematuria | CPT/HCPCS: 81003 ==

== ENCOUNTER 2024-01-07 15:19 | Outpatient (REF) | payer OTHER, SELFPAY ==
--- NOTE | ~2024-01-07 | CT_ITS ---
EXAMINATION: CT KIDNEY STONE CLINICAL INFORMATION: Renal calculus. COMPARISON: Renal ultrasound from 10/30/2023 TECHNIQUE: Noncontrast multidetector CT imaging examination of the abdomen and pelvis is performed. Axial images and multiplanar reformatted images are reviewed. This CT examination was performed using dose optimization techniques as appropriate, variously including the following: *Automated exposure control. *Adjustment of mA and/or kV according to patient size (this includes techniques or standardized protocols for targeted exams where dose is matched to indication/reason for exam, i.e., extremities or head). *Use of iterative reconstruction technique. DLP: 161 mGy-cm FINDINGS: A pulmonary lymph node or nodule in the right lower lobe is 0.5 cm average diameter is incidentally detected. Based on Fleischner Society guidelines, no chest CT imaging follow-up recommended. Liver and gallbladder are unremarkable. No dilated bile ducts. Pancreas, spleen and adrenal glands are normal. Kidneys are normal in size. No hydronephrosis or perinephric edema. Small, 0.2 cm calyceal stone of the upper pole of the left kidney. Several small calyceal stones are present in the upper, mid and lower pole of the right kidney and all these measure less than 0.3 cm. Findings include presence of two clustered calculi of approximately 0.2 cm size in the right lower pole (coronal image 28, series 4). No evidence of ureteral calculi or hydroureter. Urinary bladder is unremarkable. A few phleboliths are seen in the lower pelvis. No dilated loops of bowel. No focal bowel wall thickening, mesenteric fat stranding or free fluid. Mild atherosclerosis of the abdominal aorta without aneurysm. No pathologic sized lymph nodes in the abdomen or pelvis. Uterus and adnexa are unremarkable. No acute or suspicious osseous abnormality. 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 CT/CT kidney stone IMPRESSION: Bilateral nephrolithiasis without evidence of ureteral calculi or hydroureteronephrosis.
== END 2024-01-07 15:20 | disposition home or self-care (01) ==
LOC: HO.CT 15:19
PROVIDERS: Visit Provider Nurse Practitioner Family
DX: N20.0 Calculus of kidney (principal); R31.29 Other microscopic hematuria
CPT/HCPCS: 74176

== ENCOUNTER 2024-01-11 14:34 | Outpatient (AMB) | payer OTHER, SELFPAY ==
--- NOTE | 2024-01-11 15:04 | MHC.OFFVIS ---
Intake Visit Reasons: 2m/CT KUB(pending 01/06) Intake Note: Patient presents for follow up visit on: kidney stones and ct scan results Imagin01/07/24 Urology Medications: Vitamin B6 Blood Thinner: none Filler Picker Required: No Accompanied by: Self / Same As Patient Allergies No Known Allergies [No Known Allergies*] Allergy (Unverified 01/13/24 00:11) Medication List - Last Reconciled 01/13/24 by DIANN Barboza- alendronate 35 mg PO QWEEK cholecalciferol (vitamin D3) 100 mcg PO DAILY dicyclomine 10 mg PO Q6H PRN doxycycline monohydrate 100 mg PO BID fluticasone propionate 50 mcg/actuation sprays intranasal loratadine (Claritin) 10 mg PO DAILY omeprazole 20 mg PO QAM pyridoxine (vitamin B6) 100 mg PO DAILY 90 days HPI Comments Details: Ivet Garcia is a very pleasant 63-year-old female patient of Dr. Myers. She has a past medical history of osteoporosis, GERD, and seasonal allergies. She presents to the office today for follow-up of her nephrolithiasis. Recent CT KUB imaging results reviewed with the patient today. No hydronephrosis or perinephric edema. Small 2 mm calyceal stone of the upper pole of the left kidney. Several small calyceal stones are present in the upper, mid, and lower pole of the right kidney. All of the stones measure less than 3 mm. No evidence of ureteral calculi or hydroureter. The urinary bladder is unremarkable. In discussion with the patient today she reports having follow-up with her PCP for back pain and lower urinary tract symptoms she had been experiencing at which time she was noted to be constipated. She reports symptoms have since subsided. She currently denies any bothersome urinary issues or concerns. In office urinalysis results reviewed with the patient today. She denies urinary urgency, urinary frequency, incontinence, nocturia, hematuria, dysuria, foul smelling urine, changes to urinary stream, flank pain, fever, and or chills. She is happy with her current voiding parameters. She has a previous surgical history for nephrolithiasis in 2014 and again in 2019. When asked she reports to be drinking plenty of water daily. She reports adding 1 oz of lemon juice to water daily. She otherwise offers no other issues or concerns at this time. [facility] Medical History Hearing loss Seasonal allergic rhinitis Osteoporosis GERD (gastroesophageal reflux disease) Surgical History H/O lithotripsy H/O lumpectomy Family History Father Prostate CA Diabetes HTN (hypertension) Mother HTN (hypertension) Parkinson disease Dementia Sister Thyroid cancer Social History Alcohol intake: current Patient Tobacco Use Status: Never used Tobacco Review of Systems Const All systems reviewed & are unremarkable except as noted in HPI and below Eyes Reports no additional complaints ENT Reports no additional complaints Card Reports no additional complaints Resp Reports no additional complaints GI Reports as per HPI Reports as per HPI Musc Reports no additional complaints Neuro Reports no additional complaints Psych Reports no additional complaints Endo Reports no additional complaints Chato/Lymph Reports no additional complaints Aller/Immun Reports no additional complaints Physical Exam Const General: cooperative, healthy appearing, comfortable, no acute distress, well developed, alert and awake Orientation/consciousness: patient oriented x3 Limitations: no limitations HEENT Head: Yes normal to inspection, Yes normocephalic and Yes atraumatic Ears: hearing grossly normal bilaterally Eyes General: appearance normal, both eyes and all related structures Neck Neck: Yes normal visual inspection and Yes trachea midline Chest Chest palpation & inspection: normal inspection of the chest Resp Effort & Inspection: normal respiratory effort and able to speak in complete sentences Cardio Rate: regular rate GI Inspection: Yes normal to inspection General: Yes no CVA tenderness Back/Spine/Pelvis Back: no CVA tenderness Skin General skin exam: no rashes or lesions noted Neuro General: patient oriented x3 Extrem General: Yes normal to inspection Psych Appearance: grossly normal and well kempt Mental Status: mental status grossly normal Speech and movement: Normal speech and movement present and Clear speech present Affect: normal affect Attitude: cooperative Thought process: Normal thought process present Thought content: Normal thought content present Insight: Fair insight present (Psych) Judgement: Fair judgement present (Psych) Results AMB Urinalysis, Automated UA Leukoctes 70 Lolita/uL Last Edit by Randy Weldon on 01/11/24 15:08 UA Nitrite Negative Last Edit by Brandyce Bress on 01/11/24 15:08 UA Urobilinogen 0.2 mg/dL Last Edit by Brandyce Bress on 01/11/24 15:08 UA Protein 0 mg/dL Last Edit by Brandyce Bress on 01/11/24 15:08 UA pH 6.0 Last Edit by Brandyce Bress on 01/11/24 15:08 UA Blood 80 Donald/uL Last Edit by Brandyce Bress on 01/11/24 15:08 UA Specific [place] 1.010 Last Edit by Brandyce Bress on 01/11/24 15:08 UA Ketone Negative Last Edit by Brandyce BookThatDocss on 01/11/24 15:08 UA Bilirubin 0 mg/dL Last Edit by Brandyce BookThatDocss on 01/11/24 15:08 UA Glucose 0 mg/dL Last Edit by CelebCallsyce BookThatDocss on 01/11/24 15:08 Results Reviewed Results Reviewed: Laboratory Last Values Urine pH (Auto) 6.0 01/11/24 15:06 Specific [place] (Auto) 1.010 01/11/24 15:06 Urine Protein (Auto) 0 mg/dL 01/11/24 15:06 Glucose (UA)(Auto) 0 mg/dL 01/11/24 15:06 Urine Ketones (Auto) Negative 01/11/24 15:06 Urine Blood (Auto) 80 Donald/uL 01/11/24 15:06 Urine Nitrite (Auto) Negative 01/11/24 15:06 Urine Bilirubin (Auto) 0 mg/dL 01/11/24 15:06 Urine Urobilinogen (Auto) 0.2 mg/dL 01/11/24 15:06 Leukocyte Esterase (Auto) 70 Lolita/uL 01/11/24 15:06 Date of Service: 01/07/24 EXAMINATION: CT KIDNEY STONE FINDINGS: A pulmonary lymph node or nodule in the right lower lobe is 0.5 cm average diameter is incidentally detected. Based on Fleischner Society guidelines, no chest CT imaging follow-up recommended. Liver and gallbladder are unremarkable. No dilated bile ducts. Pancreas, spleen and adrenal glands are normal. Kidneys are normal in size. No hydronephrosis or perinephric edema. Small, 0.2 cm calyceal stone of the upper pole of the left kidney. Several small calyceal stones are present in the upper, mid and lower pole of the right kidney and all these measure less than 0.3 cm. Findings include presence of two clustered calculi of approximately 0.2 cm size in the right lower pole (coronal image 28, series 4). No evidence of ureteral calculi or hydroureter. Urinary bladder is unremarkable. A few phleboliths are seen in the lower pelvis. No dilated loops of bowel. No focal bowel wall thickening, mesenteric fat stranding or free fluid. Mild atherosclerosis of the abdominal aorta without aneurysm. No pathologic sized lymph nodes in the abdomen or pelvis. Uterus and adnexa are unremarkable. No acute or suspicious osseous abnormality. 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 IMPRESSION: Bilateral nephrolithiasis without evidence of ureteral calculi or hydroureteronephrosis. Assessment & Plan Assessment & Plan (1) Nephrolithiasis: Code(s): N20.0 - Calculus of kidney Category: Medical Plan In office urinalysis results reviewed with the patient today; as noted above. Recent CT results reviewed with the patient today; as noted above. Discussed further metabolic workup with 24 hour urine collection and labs however patient declines at this time. Will continue with surveillance monitoring of nephrolithiasis. Discussed, educated, and stressed the importance of continuing to drink plenty of water daily. Continue adding 1 oz of lemon juice to water daily. Patient currently denies any bothersome urinary issues or concerns. She reports be happy with current voiding parameters. Will obtain renal ultrasound in 6 months. Follow-up in 6 months with imaging to be completed prior; or sooner with any issues, concerns, and or questions. Orders: Orders US renal BI 6 Months N20.0 - Calculus of kidney AMB Urinalysis Automated 01/11/24 Z13.9 - Encounter for screening, unspecified Patient Instructions: The patient had an opportunity to ask questions regarding the treatment plan. All questions were answered. Physical exam, labs, and imaging were discussed and reviewed in detail. As well as risks, benefits, and discussion of treatment choices. No major barriers to understanding were identified. The patient expressed understanding and agreement with the above treatment plan. The patient was made aware they should contact our office by phone for worsening of their current condition, the appearance of new symptoms, or with any questions or concerns. Compliance is encouraged with any medications and follow up testing that is ordered. It is a privilege to be allowed the opportunity to participate in? your urological care.? Again, if you have any questions or concerns If you have any questions or concerns please do not hesitate to contact me. The office is [phone]. This note is constructed using voice recognition software. While every effort has been made to ensure accuracy cocoa powder mixer operator errors may have been included. Yours sincerely, JUS Barboza Coding Level of Care Code Est Pt Level 3 (73215) Diagnoses Nephrolithiasis N20.0
== END 2024-01-11 15:21 | disposition home or self-care (01) ==
PROVIDERS: PCP Family Medicine; Visit Provider Nurse Practitioner Family
DX: N20.0 Calculus of kidney (principal)
CPT/HCPCS: 99213

== ENCOUNTER → 2024-01-11 14:34 | Outpatient (BNVA) | payer OTHER, SELFPAY | PROVIDERS: PCP Family Medicine; Visit Provider Nurse Practitioner Family | DX: N20.0 Calculus of kidney (principal) | CPT/HCPCS: 81003 ==

== ENCOUNTER 2024-02-18 14:44 | Outpatient (AMB) | payer OTHER, SELFPAY ==
--- NOTE | 2024-02-18 14:45 | A.OFFVIS_ITS ---
Vital Signs 02/18/24 14:46 Height 4 ft 11 in BP 106/74 Blood Pressure Location Rt brachial Position Sitting Pulse 66 Pulse Source Pulse Oximeter Pulse Oximetry (%) 98 Oxygen Delivery Method Room Air Intake Visit Reasons: 6 mo f/u-LVM Intake Note: Patient presents for 6 month follow up. Allergies No Known Allergies [No Known Allergies*] Allergy (Unverified 02/18/24 14:48) Medication List - Last Reconciled 02/18/24 by DIANN Greer alendronate 35 mg PO QWEEK cholecalciferol (vitamin D3) 100 mcg PO DAILY dicyclomine 10 mg PO Q6H PRN doxycycline monohydrate 100 mg PO BID fluoxetine 10 mg PO DAILY fluticasone propionate 50 mcg/actuation sprays intranasal loratadine (Claritin) 10 mg PO DAILY omeprazole 20 mg PO QAM pyridoxine (vitamin B6) 100 mg PO DAILY 90 days HPI Comments Details: 63-yr-old female presents for f/u visit. Pt denies any significant interval medical changes. Pt endorses the following interval medical history changes: She has had kidney stomes- f/b urology. Weight loss and change in BM- BM return to baseline following a colonoscopy w/ polyp removal. Pt reports PCP tried an antidepressant (? name), however this made her too sleepy. Then pt states she started seeing Zane BROWN, who then was advised to try Prozac to help her better manage her stress- she was finding that it made her tired, headachy, nauseous. She also had an increased cough. Was worried about taking the Prozac with her Advil Cough and Cold. She restarted it 3 weeks ago- taking 1/2 dose with dinner. Overall tolerating better- maybe a little headache. She states that she was told to not look up side effects on google- we reinforced this today as pt is receiving conflicting information. She states she realizes she does not currently have dementia, but is worried about her irsk for developing dementia. She is still forgetful. Recently made a mistake at work. She is at times typing the words completely wrong- transposing letters, even letters which would not ocur next too each other. [facility] Medical History Hearing loss Seasonal allergic rhinitis Osteoporosis GERD (gastroesophageal reflux disease) Surgical History H/O lithotripsy H/O lumpectomy Family History Father Prostate CA Diabetes HTN (hypertension) Mother HTN (hypertension) Parkinson disease Dementia Sister Thyroid cancer Social History Alcohol intake: current Patient Tobacco Use Status: Never used Tobacco Physical Exam Vital Signs: Last Vital Signs Pulse 66 02/18/24 14:46 BP 106/74 02/18/24 14:46 Pulse Ox 98 02/18/24 14:46 Oxygen Delivery Method Room Air 02/18/24 14:46 Const General: cooperative and no acute distress Orientation/consciousness: patient oriented x3 Resp Effort & Inspection: normal respiratory effort and able to speak in complete sentences Neuro General: patient oriented x3 Cranial nerves: Yes CN's II-XII intact bilaterally Cognition (Neuro): normal cognition Psych Appearance: grossly normal Mental Status: mental status grossly normal Speech and movement: Normal speech and movement present Affect: normal affect Attitude: cooperative Assessment & Plan Assessment & Plan (1) Cognitive dysfunction: Code(s): F09 - Unspecified mental disorder due to known physiological condition Category: Medical (2) Anxiety: Code(s): F41.9 - Anxiety disorder, unspecified Category: Medical Plan Concur w/ trial of fluoxetine- advsied that this will take 6-8 weeks for full effect to be known, and dose may need to be increased. Reassurnace given that many people who are not trained typists make typing errors especially when distracted or multi-tasking. Reviewed lab results for for common etiologies of cognitive difficulties- WNL. Brain MRI- non-specifc mild white matter changes and volume loss. No evidence for a specific neurodegenerative process. Comprehensive neuropsych eval when able- pt is on waitlist at [facility] (currently 7- 9 month wait)- we will call [facility] to check her status again. Most recent MMSE- 30/30- reassuring. Stressed importance of regular physical activity, maintaining a healthy diet, socialization to optimize cognitive well-being. Address headaches at her next appt. f/u in 6 months or sooner prn. Coding Level of Care Code Est Pt Level 4 (96572) Diagnoses Cognitive dysfunction F09 Anxiety F41.9
[2024-02-18 14:46] VITALS: BP 106/74; PULSE 66; O2SAT 98
== END 2024-02-18 15:54 | disposition home or self-care (01) ==
PROVIDERS: PCP Internal Medicine; Visit Provider Nurse Practitioner Family
DX: R41.89 Other symptoms and signs involving cognitive functions and awareness (principal); F41.9 Anxiety disorder, unspecified
CPT/HCPCS: 99214

== ENCOUNTER → 2024-02-18 14:44 | Outpatient (BNVA) | payer OTHER, SELFPAY | PROVIDERS: PCP Internal Medicine; Visit Provider Nurse Practitioner Family ==

== ENCOUNTER 2024-04-02 09:03 | Outpatient (REF) | payer OTHER, SELFPAY | END 2024-04-02 09:04 | disposition home or self-care (01) | LOC: HO.SH 09:03 | PROVIDERS: Visit Provider Physician Assistant | DX: Z01.118 Encounter for examination of ears and hearing with other abnormal findings (principal); H90.3 Sensorineural hearing loss, bilateral; H92.02 Otalgia, left ear | CPT/HCPCS: 92552; 92556; 92567 ==

== ENCOUNTER 2024-08-27 13:59 | Outpatient (REF) | payer BC, SELFPAY ==
--- NOTE | ~2024-08-27 | US_ITS ---
CLINICAL HISTORY: N20.0 - Calculus of kidney US Renal Comparison: None Findings: Right kidney normal size and echotexture, 10.2 cm length. Nonobstructing calculi within the mid and lower pole measuring between 3 and 4 mm. Left kidney normal size and echotexture, 9.4 cm length. No hydronephrosis of either kidney. Normal color Doppler IMPRESSION: No hydronephrosis. Nonobstructing right-sided calculi. This document has been electronically signed by: Sujit Oliveira MD on 08/29/2024 11:53:02
--- OUTSIDE RECORDS SUMMARY | 2024-08-27 16:20 | XMS_ITS | Clinical Summary ---
Author Organization [facility] [address] [facility] Address [address] [place] [address] Phone Care Team Providers Care Finish Remover Name Role Phone Mona Fernandez MD Primary Care Provider Allergies No known active allergies Medications Medication Sig Dispensed Refills Start Date End Date Status alendronate (FOSAMAX) 35 mg tablet Take 1 tablet (35 mg total) by mouth every 7 (seven) days. 01/28/2024 Active fluticasone propionate (FLONASE) 50 mcg/actuation nasal spray SHAKE LIQUID AND USE 1 SPRAY IN EACH NOSTRIL 1 TO 2 TIMES A DAY Strength: 50 MCG/AC 07/09/2023 Active dicyclomine (BENTYL) 10 mg capsule TAKE 1 CAPSULE BY MOUTH FOUR TIMES DAILY NEEDED FOR GAS DISCOMFORT 04/26/2023 Active docusate sodium (COLACE) 100 mg capsule Take 1 capsule (100 mg total) by mouth 2 (two) times a day. 11/29/2023 Active pyridoxine (B-6) 100 mg tablet Take 1 tablet (100 mg total) by mouth 1 (one) time each day. 09/04/2023 Active clobetasoL (TEMOVATE) 0.05 % topical solution APPLY 15 TO 20 DROPS TO SCALP DAILY DIRECTED 01/24/2023 Active loratadine (CLARITIN) 10 mg tablet Take 1 tablet (10 mg total) by mouth 1 (one) time each day. 12/19/2022 Active CHOLECALCIFEROL, VITAMIN D3, ORAL Take 4,000 Int'l Units by mouth 1 (one) time each day. Cholecalciferol ([employer] VIT D 5000 HIGH-POTENCY OR) Active FLUoxetine (PROzac) 10 mg tablet Take 1 tablet (10 mg total) by mouth 1 (one) time each day. 90 tablet 1 06/12/2024 Active Active Problems Problem Noted Date Diagnosed Date Umbilical hernia 02/15/2021 Snoring 01/26/2021 Overview (05/04/2024): 12/2020 Home Sleep Study did not reveal sleep apnea or nocturnal hypoxia. Microcalcifications of the breast 07/10/2018 Overview (05/04/2024): Left, near right lumpectomy site 07/09/18, [facility] will recall patient for additional imaging Atypical lobular hyperplasia of left breast 12/29 Overview (05/04/2024): Biopsy 01/04/17, referred to specialist GERD (gastroesophageal reflux disease) 5 Overview (05/04/2024): Trigger- acidic foods. Trial of omeprazole given. Osteoporosis 04/28/2015 Overview (05/04/2024): Bone density 07/16 Spine -2.6, fem neck -2.4, hip -1.4, 10/27/14, T score - 2.2 spine, -1.6 femoral neck, -1.5 hip Nephrolithiasis 07/14/2014 Overview (05/04/2024): Right renal calculus and right ureter calculus 02/2014 Ct scan IBS (irritable bowel syndrome) 12/11/2013 Anxiety 12/11/2013 Encounters Date Type Department Care Team Description 06/12/2024 8:45 AM EST Office Visit Adult Medicine [address] [phone] Mona Fernandez MD Anxiety (Primary Dx); Gastroesophageal reflux disease without esophagitis; Age-related osteoporosis without current pathological fracture; History of right breast cancer; Low weight from Last 3 Months Immunizations Name Administration Dates Next Due Influenza trivalent, with preservative (Fluzone; Afluria) 6mo and older 05/04/2022,05/02/2021,04/21/2020,2018,06/04/2015 Pfizer SARS-CoV-2 COVID-19, mRNA, LNP-S, preservative free 05/04/2022,06/19/2021 Tdap Tetanus diptheria acell ular pertussis (Boostrix; Adacel) 7yo and older 12/11/2013 Surgical History Surgery Date Site/Laterality Comments BREAST LUMPECTOMY 04/09/08 PROCEDURE: HISTORICAL BREAST LUMPECTOMY CATARACT EXTRACTION 08/2009, 09/2009 PROCEDURE: HISTORICAL CATARACT REMOVAL; COMMENT: bilateral COLONOSCOPY 2007, 04/2013 PROCEDURE: HISTORICAL COLONOSCOPY; COMMENT: normal historic UPPER GASTROINTESTINAL ENDOSCOPY 2007 PROCEDURE: [place] UPPER GI ENDOSCOPY PERFORMED OTHER SURGICAL HISTORY 2016 PROCEDURE: HISTORY OTHER; COMMENT: breast bx, atypical lobular dysplasia COLONOSCOPY 05/14/2018 PROCEDURE: HISTORICAL COLONOSCOPY; COMMENT: Normal, repeat 5 years, Dr. Ortiz LITHOTRIPSY 01/01/2019 Right PROCEDURE: HISTORICAL LITHOTRIPSY LITHOTRIPSY 02/2014 PROCEDURE: HISTORICAL LITHOTRIPSY Medical History Medical History Date Comments Breast CA (CMS/HCC) DX:Breast CA (HCC) Gingivitis due to dental plaque DX:Gingivitis due to dental plaque Bruxism (teeth grinding) DX:Brux ism (teeth grinding) Family History Medical History Relation Name Comments Diabetes Father Hyperlipidemia Father Hypertension Father Prostate cancer Father Breast cancer Mother bilateral, age 72 Hypertension Mother Other: parkinsons, dementia Mother Thyroid disease Sister 1 Colon polyps Sister 2 precancerous Other cancer Sister 3 thyroid Relation Name Status Comments Father Mother (Age 88) Sister 1 Sister 2 Sister 3 Social History Tobacco Use Types Packs/Day Years Used Date Smoking Tobacco: Never Smokeless Tobacco: Never Tobacco Cessation:Counseling Given: Not Answered Alcohol Use Standard Drinks/Week Comments Yes 0 (1 standard drink = 0.6 oz pur e alcohol) Sex and Gender Information Value Date Recorded Sex Assigned at Not on file Gender Identity Not on file Sexual Orientation Not on file Job Start Date Occupation Industry Not on file Not on file Not on file Obstetrics History Last Filed Vital Signs Vital Sign Reading Time Taken Comments Blood Pressure 97/55 06/12/2024 8:53 AM EST Pulse 70 06/12/2024 8:53 AM EST Temperature 36.3 ??C (97.3 ??F) 06/12/2024 8:53 AM ES T Respiratory Rate 16 06/12/2024 8:53 AM EST Oxygen Saturation - - Inhaled Oxygen Concentration - - Weight 40.4 kg (89 lb) 06/12/2024 8:53 AM EST Height 150 cm (4' 11.06 ) 06/12/2024 8:53 AM EST Body Mass Index 17.94 06/12/2024 8:53 AM EST Plan of Treatment Upcoming Encounters Date Type Department Care Team (Late st Contact Info) Description 12/10/2024 8:45 AM EDT Office Visit Adult Medicine - [address] [phone] Lobo Ji PA [address] [place] [address] Health Maintenance Due Date Last Done Comments Zoster Vaccines (1 of 2) 10/11/2011 Depression Screening 07/08/2022 HIV Screening 07/08/2022 Social Influencers of Health Screening 07/08/2022 DTaP,Tdap,and Td Vaccines (2 - Td or Tdap) 12/12/2023 12/11/2013 Cervical Cancer Screening: Pap Smear 05/11/2024 05/11/2021 Osteoporosis Screening (Bone Density Screening) 08/15/2025 08/15/2023, 10/05/2020 Breast Cancer Screening 11/08/2025 11/09/2023 Colorectal Cancer Screening: Colonoscopy 01/07/2029 01/08/2024 Cholesterol Screening (Lipid Panel) 06/18/2029 06/18/2024, 12/19/2022 RSV Immunization Patients 60+ Years Old (1 - 1-dose 75+ series) 2036 Hepatitis C Screening Completed 12/12/2023 COVID-19 Vaccine Completed 04/28/2024, , 05/14/2022, Additional history exists Influenza Vaccine Completed 04/28/2024, , 05/14/2022, Additional history exists HIB Vaccines Aged Out No longer eligi ble based on patient's age to complete this topic HPV Vaccines Aged Out No longer eligi ble based on patient's age to complete this topic Hepatitis A Vaccines Aged Out No long er eligible based on patient's age to complete this topic Hepatitis B Vaccines Aged Out No long er eligible based on patient's age to complete this topic IPV Vaccines Aged Out No longer eligi ble based on patient's age to complete this topic MMR Vaccines Aged Out No longer eligi ble based on patient's age to complete this topic Meningococcal ACWY Vaccine Aged Out N o longer eligible based on patient's age to complete this topic Pneumococcal Vaccine: Pediatrics (0 to 5 Years) and At-Risk Patients (6 to 64 Years) Aged Out No longer eligible based on patient's age to complete this topic RSV Immunization Patients Under 20 months Aged Out No longer eligible based on patient's age to complete this topic Varicella Vaccines Aged Out No longer eligible based on patient's age to complete this topic Procedures Procedure Name Priority Date/Time Associated Diagnosis Comments LIPID PANEL WITH REFLEX TO DIRECT LDL Routine 06/18/2024 4:34 PM EST Gastroesophageal reflux disease without esophagitis Age-related osteoporosis without current pathological fracture History of right breast cancer Anxiety COMPREHENSIVE METABOLIC PANEL Routine 06/18/2024 4:34 PM EST Gastroesophageal reflux disease without esophagitis Age-related osteoporosis without current pathological fracture History of right breast cancer Anxiety COLONOSCOPY Routine 01/08/2024 HEPATITIS C SCREENING Routine 12/12/2023 DXA BONE DENSITY STUDY 1+ SITS AXIAL SKEL Routine 08/15/2023 11:36 AM EST Age-related osteoporosis without current pathological fracture PAP SMEAR Routine 05/11/2021 from Last 3 Months or Most Recently Relevant to Health Maintenance Results * Lipid panel with reflex to direct LDL (06/18/2024 4:34 PM EST) Cholesterol 195 0 - 200 mg/dL LAB CHEMISTRY METHOD 06/18/2024 7:15 PM EST [facility] Triglycerides 96 0 - 150 mg/dL LAB CHEMISTRY METHOD 06/18/2024 7:15 PM [facility] HDL 100 >=40 mg/dL LAB CHEMISTRY METHOD 06/18/2024 7:15 PM [facility] LDL Calculated 76 0 - 100 mg/dL LAB CHEMISTRY METHOD 06/18/2024 7:15 PM [facility] VLDL Cholesterol Dirk 19.2 mg/dL LAB CHEMISTRY METHOD 06/18/2024 7:15 PM [facility] Non HDL Chol. (LDL+VLDL) 95 <145 mg/dL LAB CHEMISTRY METHOD 06/18/2024 7:15 PM [facility] Chol/HDL Ratio 2.0 0.0 - 4.4 LAB CHEMISTRY METHOD 06/18/2024 7:15 PM [facility] Blood Venous blood specimen / Unknown Venipuncture / Unknown 06/18/2024 4:34 PM EST 06/18/2024 4:34 PM EST Mona Fernandez MD LAB BLOOD HEIDI NICHOLS [facility] Organization Address City/State/ZIP Co de Phone Number [facility] [address] [place] [address], * Comprehensive metabolic panel (06/18/2024 4:34 PM EST) Sodium 143 133 - 145 mmol/L LAB CHEMISTRY METHOD 06/18/2024 7:10 PM [facility] Potassium 3.6 3.5 - 5.5 mmol/L LAB CHEMISTRY METHOD 06/18/2024 7:10 PM [facility] Chloride 109 96 - 110 mmol/L LAB CHEMISTRY METHOD 06/18/2024 7:10 PM [facility] CO2 31 21 - 32 mmol/L LAB CHEMISTRY METHOD 06/18/2024 7:10 PM [facility] Anion Gap 3 3 - 11 LAB CHEMISTRY METHOD 06/18/2024 7:10 PM [facility] Glucose 100 70 - 100 mg/dL LAB CHEMISTRY METHOD 06/18/2024 7:10 PM [facility] BUN 16 5 - 25 mg/dL LAB CHEMISTRY METHOD 06/18/2024 7:10 PM [facility] Creatinine 0.64 0.50 - 1.10 mg/dL LAB CHEMISTRY METHOD 06/18/2024 7:10 PM [facility] eGFR 100 >=60 mL/min/1. 73m2 LAB CHEMISTRY METHOD 06/18/2024 7:10 PM [facility] Comment:Calculation based on the??Chronic Kidney Disease Epidemiology Collaboration (CKD-EPI) equation refit??without adjustment for race. BUN/Creatinine Ratio 25.0 LAB CHEMISTRY METHOD 06/18/2024 7:10 PM [facility] Calcium 9.4 8.5 - 10.5 mg/dL LAB CHEMISTRY METHOD 06/18/2024 7:10 PM [facility] AST (SGOT) 22 10 - 42 unit/L LAB CHEMISTRY METHOD 06/18/2024 7:10 PM [facility] ALT (SGPT) 27 10 - 60 unit/L LAB CHEMISTRY METHOD 06/18/2024 7:10 PM [facility] Alkaline Phosphatase 80 42 - 121 unit/L LAB CHEMISTRY METHOD 06/18/2024 7:10 PM [facility] Total Protein 6.7 6.0 - 8.0 g/dL LAB CHEMISTRY METHOD 06/18/2024 7:10 PM [facility] Albumin 4.0 3.2 - 5.0 g/dL LAB CHEMISTRY METHOD 06/18/2024 7:10 PM [facility] Total Bilirubin 0.6 0.0 - 1.4 mg/dL LAB CHEMISTRY METHOD 06/18/2024 7:10 PM [facility] Blood Venous blood specimen / Unknown Venipuncture / Unknown 06/18/2024 4:34 PM EST 06/18/2024 4:34 PM EST Mona Fernandez MD LAB BLOOD HEIDI [facility]) [facility] [address] [place] [address], [place] [phone] * Colonoscopy (01/08/2024) Colonoscopy No Interpretation , Abstracted Anatomical Region Laterality Modality Other Historical Provider [facility] * Hepatitis C Screening (12/12/2023) Hepatitis C Screening Abstracted Historical [facility] * DXA BONE DENSITY STUDY 1+ SITS AXIAL SKEL (08/15/2023 11:36 AM EST) Anatomical Region Laterality Modality Bone Densitometr y 05/01/2023 2:31 PM EDT Narrative 08/15/2023 4:38 PM EST BONE DENSITY SCAN (DEXA): FINDINGS: Lumbar Spine T-score is -2.3. ?? (SD relative to 20-29 y/o adult) Z-score is -0.7. ??(SD relative to age matched peers) This is considered osteopenia by WHO criteria. Left Hip T-score is -2.4. Z-score is -1.0. This is considered osteopenia by WHO criteria. Comparison exam(s): 10/05/2020. ??No statistically significant change in bone mineral density. Lateral survey view of the thoracolumbar spine shows no significant compression deformities. IMPRESSION: IMPRESSION: ?? Osteopenia by WHO criteria. The [facility] Department of Internal Medicine recommends using National Osteoporosis Foundation (NOF) guidelines in treatment decisions related to osteoporosis. NOF guidelines suggest considering treatment for postmenopausal women and men aged 50 or older presenting with the following: History of hip or vertebral fracture. T-score = -2.5 (DXA) at the femoral neck, total hip, or spine, after appropriate evaluation to exclude secondary causes. Low bone mass (T-score between -1.0 and -2.5 at the femoral neck or spine) AND a 10-year probability of a hip fracture = 3% OR a 10-year probability of a major osteoporosis-related fracture = 20% based on the [place]-adapted WHO algorithm Please note that all treatment decisions require clinical judgment and consideration of individual patient factors, including patient preferences, co-morbidities, previous drug use, risk factors not captured in the FRAX model (e.g., frailty, falls, vitamin D deficiency, increased bone turnover, interval significant decline in bone density) and possible under- or over-estimation of fracture risk by FRAX. Optional alternative screening schedule based on jose Moseley., [facility] August 17, 2011 for patients with osteopenia (based on hip BMD T-score) is as follows: * ??advanced osteopenia (T scores -2.00 to -2.49), BMD testing every year * ??moderate osteopenia (T scores -1.50 to -1.99), BMD testing every 5 years mild osteopenia or normal BMD (T scores -1.50 and higher), BMD testing every 15 years Procedure Note Mary Patel MD - 03/17/2024 BONE DENSITY SCAN (DEXA): FINDINGS: Lumbar Spine T-score is -2.3. (SD relative to 20-29 y/o adult) Z-score is -0.7. (SD relative to age matched peers) This is considered osteopenia by WHO criteria. Left Hip T-score is -2.4. Z-score is -1.0. This is considered osteopenia by WHO criteria. Comparison exam(s): 10/05/2020. No statistically significant change inbone mineral density. Lateral survey view of the thoracolumbar spine shows no significantcompression deformities. IMPRESSION: IMPRESSION: Osteopenia by WHO criteria. The [facility] Department of Internal Medicine recommendsusing National Osteoporosis Foundation (NOF) guidelines in treatment decisions related toosteoporosis. NOF guidelines suggest considering treatment for postmenopausal women and menaged 50 or older presenting with the following: History of hip or vertebral fracture. T-score = -2.5 (DXA) at the femoral neck, total hip, or spine, afterappropriate evaluation to exclude secondary causes. Low bone mass (T-score between -1.0 and -2.5 at the femoral neck or spine)AND a 10-year probability of a hip fracture = 3% OR a 10-year probability of a majorosteoporosis-related fracture = 20% based on the [place]-adapted WHO algorithm Please note that all treatment decisions require clinical judgment andconsideration of individual patient factors, including patient preferences, co- morbidities,previous drug use, risk factors not captured in the FRAX model (e.g., frailty, falls, vitaminD deficiency, increased bone turnover, interval significant decline in bone density) andpossible under- or over-estimation of fracture risk by FRAX. Optional alternative screening schedule based on maximino Moseley al., NEJMJanuary 2011 for patients with osteopenia (based on hip BMD T-score) is as follows: * advanced osteopenia (T scores -2.00 to -2.49), BMD testing every year * moderate osteopenia (T scores -1.50 to -1.99), BMD testing every 5years mild osteopenia or normal BMD (T scores -1.50 and higher), BMD testingevery 15 years Kaity BROWN IMG DXA PROCEDURES * Pap Smear (05/11/2021) Pap smear No Interpretation , Abstracted Historical Provider MD LAURA Fleming from Last 3 Months or Most Recently Relevant to Health Maintenance Care Teams Finish Remover Relationship Specialty Start Date End Date Mona Fernandez MD [address] [place] [id number] PCP - General Internal Medicine 03/03/22
== END 2024-08-27 14:00 | disposition home or self-care (01) ==
LOC: HO.US 13:59
PROVIDERS: PCP Internal Medicine; Visit Provider Nurse Practitioner Family
DX: N20.0 Calculus of kidney (principal)
CPT/HCPCS: 76775

== ENCOUNTER → 2024-08-27 14:07 | Outpatient (BNV) | payer BC, SELFPAY | PROVIDERS: PCP Internal Medicine; Visit Provider Radiology Vascular & Interventional Radiology | DX: N20.0 Calculus of kidney (principal) | CPT/HCPCS: 76775 ==

== ENCOUNTER 2024-09-04 08:57 | Outpatient (AMB) | payer BC, SELFPAY ==
--- NOTE | 2024-09-04 08:58 | A.OFFVIS_ITS ---
Vital Signs 09/04/24 08:59 Height 4 ft 11 in Weight 88 lb 2 oz BMI 17.8 BP 114/70 Blood Pressure Location Lt brachial Position Sitting Pulse 77 Pulse Source Pulse Oximeter Pulse Oximetry (%) 98 Oxygen Delivery Method Room Air Intake Visit Reasons: Follow up Platform Builder Required: No Accompanied by: Self / Same As Patient Allergies No Known Allergies [No Known Allergies*] Allergy (Verified 09/04/24 09:01) Medication List - Last Reconciled 09/04/24 by DIANN Greer alendronate 35 mg PO QWEEK cholecalciferol (vitamin D3) 100 mcg PO DAILY dicyclomine 10 mg PO Q6H PRN fluoxetine 10 mg PO DAILY fluticasone propionate 50 mcg/actuation sprays intranasal loratadine (Claritin) 10 mg PO DAILY omeprazole 20 mg PO QAM pyridoxine (vitamin B6) 100 mg PO DAILY 90 days Is last menstrual period known: No Do you need a note to return to daycare/school/sports/work: No HPI Comments Details: 63-yr-old female presents for f/u visit of cognitive difficulties. Pt reports she has always struggled with flatulence. However, she has had multiple dietary tolerance difficulties since she went through menopause. Many foods she used to tolerate, such as dairy based foods and fatty fishes. Dairy causes flatulence. She stopped many carbs, as she felt she had too much belly fat. She does now tolerate fatty fishes better if she takes a Metamucil biscuit in the am. She has been avoiding foods that cause GI upset- and has had a > 10 lb wt loss since October 2023. Now she feels too thin, so has started adding back carbs- potatoes, breads. She is still avoiding most dairy- though can tolerate small amounts of shredded parm. Per patient, she has had unremarkable colonoscopy. She has started and now maintained the sertraline. She feels this has taken the edge of of her anxiety and irritability. She feels less snappy. She is f/b Zane BROWN, who then was advised to try Prozac to help her better manage her stress- she was finding that it made her tired, headachy, nauseous. She also had an increased cough. Was worried about taking the Prozac with her Advil Cough and Cold. She has not had neuropsych evaluation, as her previous insurance was not accepted by local clinics. She has come to realize she does not currently have dementia, but is worried about her risk for developing dementia. She can still be forgetful. 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 She continues to make typing errors- transposing letters, even letters which are not next too each other. She states that the last visit, she told me that this does not happen while she is writing, however she is also prone to transposing letters while handwriting as well. [facility] Medical History Hearing loss Seasonal allergic rhinitis Osteoporosis GERD (gastroesophageal reflux disease) Surgical History H/O lithotripsy H/O lumpectomy Family History Father Prostate CA Diabetes HTN (hypertension) Mother HTN (hypertension) Parkinson disease Dementia Sister Thyroid cancer Social History Alcohol intake: current Patient Tobacco Use Status: Never used Tobacco Physical Exam Vital Signs: Last Vital Signs Pulse 77 09/04/24 08:59 BP 114/70 09/04/24 08:59 Pulse Ox 98 09/04/24 08:59 Oxygen Delivery Method Room Air 09/04/24 08:59 BMI result Body Mass Index 17.8 Const General: cooperative and no acute distress Orientation/consciousness: patient oriented x3 Resp Effort & Inspection: normal respiratory effort and able to speak in complete sentences Neuro General: patient oriented x3 Cranial nerves: Yes CN's II-XII intact bilaterally Cognition (Neuro): normal cognition Psych Other: Patient is visibly less anxious today. Appearance: grossly normal Mental Status: mental status grossly normal Speech and movement: Normal speech and movement present Affect: normal affect Attitude: cooperative Assessment & Plan Assessment & Plan (1) Cognitive dysfunction: Code(s): F09 - Unspecified mental disorder due to known physiological condition Category: Medical (2) Anxiety: Code(s): F41.9 - Anxiety disorder, unspecified Category: Medical (3) Weight loss: Code(s): R63.4 - Abnormal weight loss Category: Medical (4) Flatulence: Code(s): R14.3 - Flatulence Category: Medical (5) Food intolerance: Code(s): K90.49 - Malabsorption due to intolerance, not elsewhere classified Category: Medical Plan Continue fluoxetine 10 mg p.o. q.d., as patient herself is starting to notice benefit on her mood. However, she does continue to have forgetfulness and make areas and typing/writing. Patient is again advised to undergo comprehensive neuropsychological evaluation. Recent lab results for for common etiologies of cognitive difficulties- WNL. 07/04/2023, Brain MRI- non-specifc mild white matter changes and volume loss. No evidence for a specific neurodegenerative process. MMSE- 30/30- reassuring. Continue to optimize overall healthy lifestyle, including regular physical activity, maintaining a healthy diet, socialization to optimize cognitive well- being. Thus, we will request GI consult for assessment of weight loss and food intolerances, as patient has had greater than 10 lb weight loss in the last year. Today's weight is 88 lb while wearing total neck, sweater, jeans, and short winter boots. Address headaches at her next appt. f/u in 6 months or sooner prn. Orders: Referrals Neuropsychiatry Referral F09 - Unspecified mental disorder due to known physiological condition, F41.9 - Anxiety disorder, unspecified Gastroenterology Referral K90.49 - Malabsorption due to intolerance, not else where classified, R14.3 - Flatulence, R63.4 - Abnormal weight loss Coding Level of Care Code Est Pt Level 4 (12771) Diagnoses Cognitive dysfunction F09 Anxiety F41.9 Weight loss R63.4 Flatulence R14.3 Food intolerance K90.49
[2024-09-04 08:59] VITALS: BP 114/70; PULSE 77; O2SAT 98; BMI 17.8
--- OUTSIDE RECORDS SUMMARY | 2024-09-04 09:11 | XMS_ITS | Clinical Summary ---
Author Organization [facility] [address] [facility] [place] Address [address] [place] [address] Phone Care Team Providers Care Security Shift Supervisor Name Role Phone Mona Fernandez MD Primary [...] (05/04/2024): Left, near right lumpectomy site 07/09/18, [facility] will recall patient for additional imaging [...] Encounters Date Type Department Care Team Description 09/04/2024 Telephone Adult Medicine [address] [phone] Mona Feranndez MD microbiology technologist feedback ([facility] Neurolgy (Dr. Tressa Dickerson, )) 06/12/2024 8:45 AM EST Office Visit Adult Medicine [facility] [address] [place] [address] Mona Fernandez MD Anxiety (Primary Dx); Gastroesophageal [...] normal historic UPPER GASTROINTESTINAL ENDOSCOPY 2007 PROCEDURE: [place] UPPER GI ENDOSCOPY PERFORMED OTHER SURGICAL HISTORY [...] AM EDT Office Visit Adult Medicine - [address] [phone] Lobo Ji, [place] [address] [place] [address] Health Maintenance Due Date Last Done Comments [...] LAB CHEMISTRY METHOD 06/18/2024 7:15 PM EST [facility] Triglycerides 96 0 - 150 mg/dL LAB CHEMISTRY METHOD 06/18/2024 7:[address] [facility] HDL 100 >=40 mg/dL LAB CHEMISTRY METHOD 06/18/2024 7:[address] [facility] LDL Calculated 76 0 - 100 mg/dL LAB CHEMISTRY METHOD 06/18/2024 7:15 PM EST [facility] VLDL Cholesterol Dirk 19.2 mg/dL LAB CHEMISTRY METHOD 06/18/2024 7:[address] [facility] Non HDL Chol. (LDL+VLDL) 95 <145 mg/dL LAB CHEMISTRY METHOD 06/18/2024 7:[address] [facility] Chol/HDL Ratio 2.0 0.0 - 4.4 LAB CHEMISTRY METHOD 06/18/2024 7:[address] [facility] Blood Venous blood specimen / Unknown Venipuncture / Unknown 06/18/2024 4:34 PM EST 06/18/2024 4:34 PM EST Mona Fernandez MD LAB BLOOD HEIDI NICHOLS [facility] Organization Address City/State/ZIP Co de Phone Number [facility] [address] [place] [address], * Comprehensive metabolic panel (06/18/2024 4:34 PM EST) Pathologist [facility] Sodium 143 133 - 145 mmol/L LAB CHEMISTRY METHOD 06/18/2024 7:10 PM EST [facility] Potassium 3.6 3.5 - 5.5 mmol/L LAB CHEMISTRY METHOD 06/18/2024 7:[address] [facility] Chloride 109 96 - 110 mmol/L LAB CHEMISTRY METHOD 06/18/2024 7:10 PM EST [facility] CO2 31 21 - 32 mmol/L LAB CHEMISTRY METHOD 06/18/2024 7:[address] [facility] Anion Gap 3 3 - 11 LAB CHEMISTRY METHOD 06/18/2024 7:[address] [facility] Glucose 100 70 - 100 mg/dL LAB CHEMISTRY METHOD 06/18/2024 7:[address] [facility] BUN 16 5 - 25 mg/dL LAB CHEMISTRY METHOD 06/18/2024 7:[address] [facility] Creatinine 0.64 0.50 - 1.10 mg/dL LAB CHEMISTRY METHOD 06/18/2024 7:[address] [facility] eGFR 100 >=60 mL/min/1. 73m2 LAB CHEMISTRY METHOD 06/18/2024 7:[address] [facility] Comment:Calculation based on the??Chronic Kidney Disease Epidemiology Collaboration (CKD-EPI) equation refit??without adjustment for race. BUN/Creatinine Ratio 25.0 LAB CHEMISTRY METHOD 06/18/2024 7:[address] [facility] Calcium 9.4 8.5 - 10.5 mg/dL LAB CHEMISTRY METHOD 06/18/2024 7:[address] [facility] AST (SGOT) 22 10 - 42 unit/L LAB CHEMISTRY METHOD 06/18/2024 7:[address] [facility] ALT (SGPT) 27 10 - 60 unit/L LAB CHEMISTRY METHOD 06/18/2024 7:[address] [facility] Alkaline Phosphatase 80 42 - 121 unit/L LAB CHEMISTRY METHOD 06/18/2024 7:[address] [facility] Total Protein 6.7 6.0 - 8.0 g/dL LAB CHEMISTRY METHOD 06/18/2024 7:[address] [facility] Albumin 4.0 3.2 - 5.0 g/dL LAB CHEMISTRY METHOD 06/18/2024 7:[address] [facility] Total Bilirubin 0.6 0.0 - 1.4 mg/dL LAB CHEMISTRY METHOD 06/18/2024 7:10 PM EST [facility] Blood Venous blood specimen / Unknown Venipuncture / Unknown 06/18/2024 4:34 PM EST 06/18/2024 4:34 PM EST Mona Fernandez MD LAB BLOOD RITESHE SIMONE [facility] [address] [place] [address], * Colonoscopy (01/08/2024) Colonoscopy No Interpretation , Abstracted Anatomical Region Laterality Modality Other [facility] * Hepatitis C Screening (12/12/2023) [facility]ologist [facility] Hepatitis C Screening Abstracted Historical [facility] * DXA BONE DENSITY STUDY 1+ [...] IMPRESSION: ?? Osteopenia by WHO criteria. The [facility] Department of Internal Medicine recommends using National [...] alternative screening schedule based on jose Moseley., [facility] August 17, 2011 for patients with [...] IMPRESSION: IMPRESSION: Osteopenia by WHO criteria. The [facility] Department of Internal Medicine recommendsusing National Osteoporosis [...] alternative screening schedule based on [facility]ose[facility]., [facility] for patients with osteopenia (based on hip BMD T-score) is as follows: * advanced osteopenia (T scores -2.00 to -2.49), BMD testing every year * moderate osteopenia (T scores -1.50 to -1.99), BMD testing every 5years mild osteopenia or normal BMD (T scores -1.50 and higher), BMD testingevery 15 years Kaity [facility] DXA PROCEDURES * Pap Smear (05/11/2021) Pap smear No Interpretation , Abstracted Historical Provider MD LAURA Fleming from Last 3 Months or Most Recently Relevant to Health Maintenance Care Teams Security Shift Supervisor Relationship Specialty Start Date End Date Mona Fernandez MD [address] [place] [id number] PCP - General Internal Medicine 03/03/22
--- OUTSIDE RECORDS SUMMARY | 2024-09-04 09:11 | XMS_ITS | Encounter Summary ---
Author Organization [facility] Address [address] [place] [address] Care Team Providers Care Penology Professor Name Role Phone Mona Fernandez MD Primary Care Provider Reason for Visit * Reason Onset Date Comments supervisor microwave feedback 09/04/2024 [facility] Neurolgy (Dr Harjeet Dickerson, ) Encounter Details Date Type Department Care Team (Late Contact Info) Description 09/04/2024 Telephone Adult Medicine [address] [phone] Mona Fernandez MD [address] [place] [address] supervisor microwave feedback ([facility] Neurolgy (Dr. Tressa Dickerson, )) Social History Tobacco Use Types Packs/Day Years Used Date Smoking Tobacco: Never Smokeless Tobacco: Never Alcohol Use Standard Drinks/Week Comments Yes 0 (1 standard drink = 0.6 oz pur e alcohol) Sex and Gender Information Value Date Recorded Sex Assigned at Not on file Gender Identity Not on file Sexual Orientation Not on file Job Start Date Occupation Industry Not on file Not on file Not on file documented as of this encounter Plan of Treatment Upcoming Encounters Date Type Department Care Team (Late Contact Info) Description 12/10/2024 8:45 AM EDT Office Visit Adult [address] [phone] Lobo Ji PA [address] [place], [place] [phone] documented as of this encounter Visit Diagnoses Not on filedocumented in this encounter Care Teams Penology Professor Relationship Specialty Start Date End Date Mona Fernandez MD [address] [place] [id number] PCP - General Internal Medicine 03/03/22 documented as of this encounter
== END 2024-09-04 09:54 | disposition home or self-care (01) ==
PROVIDERS: PCP Internal Medicine; Visit Provider Nurse Practitioner Family
DX: R41.89 Other symptoms and signs involving cognitive functions and awareness (principal); F41.9 Anxiety disorder, unspecified; R63.4 Abnormal weight loss; R14.3 Flatulence; K90.49 Malabsorption due to intolerance, not elsewhere classified
CPT/HCPCS: 99214

== ENCOUNTER → 2024-09-04 08:57 | Outpatient (BNVA) | payer BC, SELFPAY | PROVIDERS: PCP Internal Medicine; Visit Provider Nurse Practitioner Family ==

== ENCOUNTER 2024-09-10 10:26 | Outpatient (AMB) | payer BC, SELFPAY ==
--- NOTE | 2024-09-10 10:26 | A.OFFVIS_ITS ---
Intake Visit Reasons: Ultrasound follow up Intake Note: Patient is Present for Telephone Follow Up For Ultrasound results Urology Med: Vitamin B6 Antibiotic Allergy: None Blood Thinner: None Casino Floor Person Required: No Accompanied by: Self / Same As Patient Allergies No Known Allergies [No Known Allergies*] Allergy (Verified 09/10/24 10:52) Medication List - Last Reconciled 09/10/24 by JUS Barboza alendronate 35 mg PO QWEEK cholecalciferol (vitamin D3) 100 mcg PO DAILY dicyclomine 10 mg PO Q6H PRN fluoxetine 10 mg PO DAILY fluticasone propionate 50 mcg/actuation sprays intranasal loratadine (Claritin) 10 mg PO DAILY omeprazole 20 mg PO QAM pyridoxine (vitamin B6) 100 mg PO DAILY 90 days HPI Comments Details: Ivet Garcia is a very pleasant 63-year-old female patient of Dr. Myers. She has a past medical history of osteoporosis, GERD, and seasonal allergies. She is being followed up on today via video telehealth for her history of nephrolithiasis. Recent renal imaging results reviewed with the patient today. 08/23 bilateral kidneys are normal in size and echotexture. Nonobstructing right renal calculi within the mid and lower pole measuring between 3 and 4 mm. In comparison to previous CT 01/20 stones appears stable. In discussion with the patient today she denies having had any bothersome urinary issues or concerns since her last office visit here. She reports compliance with vitamin B6 and adding lemon juice to water daily. She currently denies any bothersome urinary issues or concerns. She denies urinary urgency, urinary frequency, incontinence, nocturia, hematuria, dysuria, foul smelling urine, changes to urinary stream, flank pain, fever, and or chills. She is happy with her current voiding parameters. She has a previous surgical history for nephrolithiasis in 2013 and again in 2019. When asked she reports to be attempting to drink plenty of water daily. She otherwise offers no other issues or concerns at this time. [facility] Medical History Hearing loss Seasonal allergic rhinitis Osteoporosis GERD (gastroesophageal reflux disease) Surgical History H/O lithotripsy H/O lumpectomy Family History Father Prostate CA Diabetes HTN (hypertension) Mother HTN (hypertension) Parkinson disease Dementia Sister Thyroid cancer Social History Alcohol intake: current Patient Tobacco Use Status: Never used Tobacco Review of Systems Const All systems reviewed & are unremarkable except as noted in HPI and below Eyes Reports no additional complaints ENT Reports no additional complaints Card Reports no additional complaints Resp Reports no additional complaints GI Reports as per HPI Reports as per HPI Musc Reports no additional complaints Neuro Reports no additional complaints Psych Reports no additional complaints Endo Reports no additional complaints Chato/Lymph Reports no additional complaints Aller/Immun Reports no additional complaints Physical Exam Const General: cooperative, healthy appearing, comfortable, no acute distress, well developed, alert and awake Orientation/consciousness: patient oriented x3 Resp Effort & Inspection: normal respiratory effort and able to speak in complete sentences Neuro General: patient oriented x3 Psych Appearance: grossly normal Mental Status: mental status grossly normal Speech and movement: Clear speech present Affect: normal affect Thought content: Normal thought content present Insight: Fair insight present (Psych) Judgement: Fair judgement present (Psych) Telehealth Telehealth Telehealth Platform: [employer] Location of provider rendering services: practice address Location of patient: address on file Patient Identification confirmed using: Name, : Yes Telehealth method: video Patient verbally consented to treatment: Yes Patient verbally consented to billing insurance company: Yes Patient informed of any privacy concerns related to visit: Yes Minutes spent on Phone/Video with Pt.: 15 Results Reviewed Results Reviewed: Date of Service: 08/27/24 Procedure(s): US renal BI Findings: Right kidney normal size and echotexture, 10.2 cm length. Nonobstructing calculi within the mid and lower pole measuring between 3 and 4 mm. Left kidney normal size and echotexture, 9.4 cm length. No hydronephrosis of either kidney. Normal color Doppler IMPRESSION: No hydronephrosis. Nonobstructing right-sided calculi. Assessment & Plan Assessment & Plan (1) Nephrolithiasis: Code(s): N20.0 - Calculus of kidney Category: Medical Plan Recent renal imaging results reviewed with the patient today; as noted above. Discussed further metabolic workup with 24 hour urine collection and labs however patient declines at this time. Will continue with surveillance monitoring of nephrolithiasis. Discussed, educated, and stressed the importance of continuing to drink plenty of water daily. Continue adding 1 oz of lemon juice to water daily. Continue vitamin B6 Patient currently denies any bothersome urinary issues or concerns. She reports be happy with current voiding parameters. Will obtain renal ultrasound in 6 months. Follow-up in 6 months with imaging to be completed prior; or sooner with any issues, concerns, and or questions. Orders: Orders US renal BI 6 Months N20.0 - Calculus of kidney Patient Instructions: The patient had an opportunity to ask questions regarding the treatment plan. All questions were answered. Physical exam, labs, and imaging were discussed and reviewed in detail. As well as risks, benefits, and discussion of treatment choices. No major barriers to understanding were identified. The patient expressed understanding and agreement with the above treatment plan. The patient was made aware they should contact our office by phone for worsening of their current condition, the appearance of new symptoms, or with any questions or concerns. Compliance is encouraged with any medications and follow up testing that is ordered. It is a privilege to be allowed the opportunity to participate in? your urological care.? Again, if you have any questions or concerns If you have any questions or concerns please do not hesitate to contact me. The office is [phone]. This note is constructed using voice recognition software. While every effort has been made to ensure accuracy wraparound facilitator errors may have been included. Yours sincerely, JUS Barboza Coding Level of Care Code Tele Est Pt Level 3 (05888) Diagnoses Nephrolithiasis N20.0
--- OUTSIDE RECORDS SUMMARY | 2024-09-10 12:11 | XMS_ITS | Encounter Summary ---
Author Organization [facility] Address [address] [place] [address] Care Team Providers Care Sales Enablement Specialist Name Role Phone Mona Fernandez MD Primary Care Provider Reason for Referral * Consultation (Routine) - Authorized Specialty Diagnoses / Procedures Referred By Contmartin t Referred To Contact Diagnoses Organic brain syndrome Mona Fernandez MD [address] [place] [address] Phone: tel: fax: Tressa Dickerson [address] [phone] Phone: tel: Referral ID Status Reason Start Date Expiration Date Visits Requested Visits Authorized [id number] Authorized Specialty Services Required 09/04/2024 09/04/2025 6 6 Reason for Visit * Reason Onset Date Comments microfilmer feedback 09/04/2024 [facility] Neurolgy (Dr Harjeet Dickerson, ) Encounter Details Date Type Department Care Team ([facility] st Contact Info) Description 09/04/2024 Telephone Adult Medicine - [place] [address] [place] [phone] Mona Fernandez MD [address] [place] [address] microfilmer feedback ([facility] Neurolgy (Dr. Tressa Dickerson, )) Social History Tobacco Use Types Packs/Day Years Used Date Smoking Tobacco: Never Smokeless Tobacco: Never Alcohol Use Standard Drinks/Week Comments Yes 0 (1 standard drink = 0.6 oz pur e alcohol) Comments Unknown Sex and Gender Information Value Date Recorded Sex Assigned at Not on file Legal Sex Female 10:25 AM EST Gender Identity Not on file Sexual Orientation Not on file documented as of this encounter Progress Notes * Mona Fernandez MD - 09/04/2024 12:50 PM EST Referral entered and signed * Della Montiel - 09/04/2024 9:02 AM EST Raya from [facility] Neurology is calling requesting an insurance referral for today's appointment. Thelast order was back in 2022. Please pend and sign. Thank you Dr. Tressa Dickerson, DYLAN [phone] DOS 09/04/24 6 visit Dx. 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
--- OUTSIDE RECORDS SUMMARY | 2024-09-10 12:11 | XMS_ITS | Clinical Summary ---
Author Organization [facility] [address] [facility] Address [address] [place] [address] Phone Care Team Providers Care Latexer Name Role Phone Mona Fernandez MD Primary Care Provider Allergies No known active allergies Medications alendronate (FOSAMAX) 35 mg tablet Take 1 tablet (35 mg total) by mouth every 7 (seven) days. 01/28/20 24 Active fluticasone propionate (FLONASE) 50 mcg/actuation nasal spray SHAKE LIQUID AND USE 1 SPRAY IN EACH NOSTRIL 1 TO 2 TIMES A DAY Strength: 50 MCG/AC 07/09/20 23 Active dicyclomine (BENTYL) 10 mg capsule TAKE 1 CAPSULE BY MOUTH FOUR TIMES DAILY NEEDED FOR GAS DISCOMFORT 04/26/20 23 Active docusate sodium (COLACE) 100 mg capsule Take 1 capsule (100 mg total) by mouth 2 (two) times a day. 11/29/19 24 Active pyridoxine (B-6) 100 mg tablet Take 1 tablet (100 mg total) by mouth 1 (one) time each day. 09/04/19 24 Active clobetasoL (TEMOVATE) 0.05 % topical solution APPLY 15 TO 20 DROPS TO SCALP DAILY DIRECTED 01/25/20 23 Active loratadine (CLARITIN) 10 mg tablet Take 1 tablet (10 mg total) by mouth 1 (one) time each day. 12/20/19 23 Active CHOLECALCIFERO L, VITAMIN D3, ORAL Take 4,000 Int'l Units by mouth 1 (one) time each day. Cholecalciferol (CVS VIT D 5000 HIGH-POTENCY OR) Active FLUoxetine (PROzac) 10 mg tablet Take 1 tablet (10 mg total) by mouth 1 (one) time each day. 90 tablet 1 06/12/20 24 Active Active Problems Problem Noted Date Diagnosed Date Umbilical hernia 02/15/2021 Snoring 01/26/2021 Overview (05/04/2024): 12/2020 Home Sleep Study did not reveal sleep apnea or nocturnal hypoxia. Microcalcifications of the breast 07/10/2018 Overview (05/04/2024): Left, near right lumpectomy site 07/09/18, [facility] will recall patient for additional imaging [...] Encounters Date Type Department Care Team Description 09/09/2024 Telephone Adult Medicine [facility] [address] [place] [address] Mona Fernandez MD Referral 09/04/2024 Telephone Adult Medicine - [place] [address] [place] [address] Mona Fernandez MD crosstie inspector feedback ([facility] Neurol[facility] (Dr. Tressa Dickerson, )) 06/12/2024 8:45 AM EST Office Visit [address] [phone] Mona Fernandez MD Anxiety (Primary [...] normal historic UPPER GASTROINTESTINAL ENDOSCOPY 2007 PROCEDURE: MD UPPER GI ENDOSCOPY PERFORMED OTHER SURGICAL HISTORY [...] on file Sexual Orientation Not on file Obstetrics History Last Filed [...] AM EDT Office Visit Adult Medicine - [address] [phone] Lobo Ji PA [address] [place] [phone] Health Maintenance Due Date Last Done Comments Pneumococcal Vaccine: 50+ Years (1 of 1 - PCV) 10/11/2011 Zoster Vaccines (1 of 2) 10/11/2011 Depression [...] patient's age to complete this topic Meningococcal B Vacine Aged Out No lo nger eligible based on patient's age to complete [...] EST Age-related osteoporosis without current pathological fracture HM PAP SMEAR Routine 05/11/2021 from Last 3 [...] PM EST [facility] HDL 100 >=40 mg/dL LAB CHEMISTRY METHOD 06/18/2024 7:15 PM EST [facility] LDL Calculated 76 0 - 100 mg/dL LAB CHEMISTRY METHOD 06/18/2024 7:15 PM EST [facility] VLDL Cholesterol Dirk 19.2 mg/dL LAB CHEMISTRY METHOD 06/18/2024 7:15 PM EST [facility] Non HDL Chol. (LDL+VLDL) 95 <145 mg/dL LAB CHEMISTRY METHOD 06/18/2024 7:15 PM EST [facility] Chol/HDL Ratio 2.0 0.0 - 4.4 LAB CHEMISTRY METHOD 06/18/2024 7:15 PM EST [facility] Blood Venous blood specimen / Unknown Venipuncture / Unknown 06/18/2024 4:34 PM EST 06/18/2024 4:34 PM EST us Mona Fernandez MD LAB BLOOD ORDERABLES F inal Result [facility] [address] [place] [address], [place] [phone] * Comprehensive metabolic panel (06/18/2024 4:34 PM EST) Sodium 143 133 - 145 mmol/L LAB CHEMISTRY METHOD 06/18/2024 7:10 PM [facility] Potassium 3.6 3.5 - 5.5 mmol/L LAB CHEMISTRY METHOD 06/18/2024 7:10 PM [facility] Chloride 109 96 - 110 mmol/L LAB CHEMISTRY METHOD 06/18/2024 7:10 PM [facility] CO2 31 21 - 32 mmol/L LAB CHEMISTRY METHOD 06/18/2024 7:10 PM [facility] Anion Gap 3 3 - 11 LAB CHEMISTRY METHOD 06/18/2024 7:10 PM [facility] Glucose 100 70 - 100 mg/dL LAB CHEMISTRY METHOD 06/18/2024 7:10 PM [facility] BUN 16 5 - 25 mg/dL LAB CHEMISTRY METHOD 06/18/2024 7:10 PM [facility] Creatinine 0.64 0.50 - 1.10 mg/dL LAB CHEMISTRY METHOD 06/18/2024 7:10 PM [facility] eGFR 100 >=60 mL/min/1. 73m2 LAB CHEMISTRY METHOD 06/18/2024 7:10 PM [facility] Comment:Calculation based on the??Chronic Kidney Disease Epidemiology Collaboration (CKD-EPI) equation refit??without adjustment for race. BUN/Creatinine Ratio 25.0 LAB CHEMISTRY METHOD 06/18/2024 7:10 PM [facility] Calcium 9.4 8.5 - 10.5 mg/dL LAB CHEMISTRY METHOD 06/18/2024 7:10 PM [facility] AST (SGOT) 22 10 - 42 unit/L LAB CHEMISTRY METHOD 06/18/2024 7:10 PM [facility] ALT (SGPT) 27 10 - 60 unit/L LAB CHEMISTRY METHOD 06/18/2024 7:10 PM [facility] Alkaline Phosphatase 80 42 - 121 unit/L LAB CHEMISTRY METHOD 06/18/2024 7:10 PM EST [facility] Total Protein 6.7 6.0 - 8.0 g/dL LAB CHEMISTRY METHOD 06/18/2024 7:10 PM EST [facility] Albumin 4.0 3.2 - 5.0 g/dL LAB CHEMISTRY METHOD 06/18/2024 7:10 PM EST [facility] Total Bilirubin 0.6 0.0 - 1.4 mg/dL LAB CHEMISTRY METHOD 06/18/2024 7:10 PM EST [facility] Blood Venous blood specimen / Unknown Venipuncture / Unknown 06/18/2024 4:34 PM EST 06/18/2024 4:34 PM EST Mona Fernandez MD LAB BLOOD ORDERABLES F inal Result [facility] [address] [place] [address], * Colonoscopy (01/08/2024) Colonoscopy No Interpretation , Abstracted Anatomical Region Laterality Modality Other Historical Provider HEALTH MAINTENANCE Final Result * Hepatitis C Screening (12/12/2023) Hepatitis C Screening Abstracted Historical Provider HEALTH MAINTENANCE Final Result * DXA BONE DENSITY STUDY 1+ SITS [...] IMPRESSION: ?? Osteopenia by WHO criteria. The [facility] Department of Internal Medicine recommends using [...] alternative screening schedule based on jose Moseley., [facility] August 17, 2011 for patients with osteopenia [...] IMPRESSION: IMPRESSION: Osteopenia by WHO criteria. The [facility] Department of Internal Medicine recommendsusing National [...] alternative screening schedule based on jose Moseley., NEJMJanuary 2011 for patients with osteopenia (based on hip BMD T-score) is as follows: * advanced osteopenia (T scores -2.00 to -2.49), BMD testing every year * moderate osteopenia (T scores -1.50 to -1.99), BMD testing every 5years mild osteopenia or normal BMD (T scores -1.50 and higher), BMD testingevery 15 years Kaity BROWN IMG DXA PROCEDURES Final Result * Pap Smear (05/11/2021) Pap smear No Interpretation , Abstracted Historical Provider MD HEALTH MAINTENANCE Final Result from Last 3 Months or Most Recently Relevant to Health Maintenance Insurance [facility] Care Teams Latexer Relationship Specialty Start Date End Date Mona Fernandez MD [address] [place] [phone] PCP - General Internal Medicine 03/03/22
--- OUTSIDE RECORDS SUMMARY | 2024-09-10 12:11 | XMS_ITS | Encounter Summary ---
Author Organization [facility] Address [address] [place] [address] Care Team Providers Care Circuit Court Magistrate Name Role Phone Mona Fernandez MD Primary Care Provider Reason for Visit * Reason Onset Date Comments Referral 09/09/2024 Encounter Details Date Type Department Care Team ([facility] st Contact Info) Description 09/09/2024 Telephone Adult Medicine - [place] [address] [place] [phone] Mona Fernandez MD [address] [place] [address] Referral Social History Tobacco Use Types Packs/Day Years [...] as of this encounter Progress Notes * Camron Monaco - 09/09/2024 2:49 PM EST Referral Request: What insurance does the patient have today? [place] Referrals cannot be processed if the insurance is not accurate. If the insurance listed above in red is NO BILLING INFORMATION FOUND FOR THIS ENCOUTNER The patients correct insurance must be obtained and registered in [facility] or their referral can not be processed. Is this a retro request? Yes If yes for what date of service do you need the retro referral? 09/05/24 Who is calling to request this referral? Patient If the caller is not the patient, what is their name? not applicable Ask the patient WHO referred them to this specialty: Not an initial visit; it is for follow up/continuation of care. Patients PCP is FIRST and LAST NAME of SPECIALIST PATIENT is seeing: Dr. Javier Cotton MD What specialty is this? Opthlamology DIAGNOSIS Patient is being seen for (Not a body part or a procedure): General Eye Exam (Continuation of Care From Cataract Surgery) Have you seen this SPECIALIST for this PROBLEM/DX before? If YES, when? No Have you checked REVIEW or the APPT DESK to see if this referral has already been done or has visits left? yes Is this visit: Follow Up Address of Specialist: [address] [place] [phone] Phone # of Specialist: Fax #: (if applicable): Does patient have an appointment scheduled?: no Date of appointment- (including a retro-request): Is this appointment related to: documented in this encounter Plan of Treatment Upcoming Encounters Date Type Department Care Team (Late st Contact Info) Description 12/10/2024 8:45 AM EDT Office Visit Adult Medicine - [place] [address] [place] [address] Lobo Ji, KEVIN [address] [place] [address] documented as of this encounter Visit Diagnoses Not on filedocumented in this encounter Care Teams Circuit Court Magistrate Relationship Specialty Start Date End Date Mona Fernandez MD [address] [place] [phone] PCP - General Internal Medicine 03/03/22 documented as of this encounter
== END 2024-09-10 10:52 | disposition home or self-care (01) ==
LOC: HO.HUSH 10:26
PROVIDERS: PCP Internal Medicine; Visit Provider Nurse Practitioner Family
DX: N20.0 Calculus of kidney (principal)
CPT/HCPCS: 99213

== ENCOUNTER → 2024-09-10 10:26 | Outpatient (BNVA) | payer BC, SELFPAY | PROVIDERS: PCP Internal Medicine; Visit Provider Nurse Practitioner Family ==

== ENCOUNTER 2024-12-19 12:05 | Outpatient (AMB) | payer BC, SELFPAY ==
--- OUTSIDE RECORDS SUMMARY | 2024-12-19 12:07 | XMS_ITS | Clinical Summary ---
Author Organization [facility] [address] [facility] Address [address] [place] [address] Phone Care Team Providers Care Wood Gluer Name Role Phone Mona Fernandez MD Primary Care Provider Allergies No known active allergies Medications fluticasone propionate (FLONASE) 50 mcg/actuation nasal spray SHAKE LIQUID AND USE 1 SPRAY IN EACH NOSTRIL 1 TO 2 TIMES A DAY Strength: 50 MCG/AC 023 Active dicyclomine (BENTYL) 10 mg capsule TAKE 1 CAPSULE BY MOUTH FOUR TIMES DAILY NEEDED FOR GAS DISCOMFORT 023 Active pyridoxine (B-6) 100 mg tablet Take 1 tablet (100 mg total) by mouth 1 (one) time each day. 024 Active clobetasoL (TEMOVATE) 0.05 % topical solution APPLY 15 TO 20 DROPS TO SCALP DAILY DIRECTED 023 Active loratadine (CLARITIN) 10 mg tablet Take 1 tablet (10 mg total) by mouth 1 (one) time each day. 023 Active CHOLECALCIFER OL, VITAMIN D3, ORAL Take 4,000 Int'l Units by mouth 1 (one) time each day. Cholecalciferol (CVS VIT D 5000 HIGH-POTENCY OR) Active alendronate (FOSAMAX) 35 mg tablet TAKE 1 TABLET BY MOUTH EVERY 7 DAYS 4 tablet 025 Active FLUoxetine (PROzac) 10 mg tablet Take 1 tablet (10 mg total) by mouth 1 (one) time each day. 90 tablet 025 Active docusate sodium (COLACE) 100 mg capsule Take 1 capsule (100 mg total) by mouth 2 (two) times a day. 024 2024 Discontinued FLUoxetine (PROzac) 10 mg tablet Take 1 tablet (10 mg total) by mouth 1 (one) time each day. 90 tablet 1 024 2024 Discontinued(R eorder) alendronate (FOSAMAX) 35 mg tablet TAKE 1 TABLET BY MOUTH EVERY 7 DAYS 4 tablet 025 2024 Discontinued Active Problems Problem Noted Date Diagnosed Date Umbilical hernia 02/15/2021 Snoring 01/26/2021 Overview (05/04/2024): 12/2020 Home Sleep Study did not reveal sleep apnea or nocturnal hypoxia. Microcalcifications of the breast 07/10/2018 Overview (05/04/2024): Left, near right lumpectomy site 07/09/18, [facility] will recall patient for additional imaging [...] Encounters Date Type Department Care Team Description 12/10/2024 9:45 AM EDT - 12/10/2024 11:59 PM EDT Hospital Encounter Xray - [address] [phone] Metacarpophalangeal joint pain of left hand Discharge Disposition: Home or Self Care 12/10/2024 8:45 AM EDT Office Visit Adult [address] [phone] Lobo Ji PA Anxiety (Primary Dx); Gastroesophageal reflux disease, unspecified whether esophagitis present; Age-related osteoporosis without current pathological fracture; Metacarpophalangeal joint pain of left hand; Hearing loss due to cerumen impaction, bilateral; Allergic rhinitis, unspecified seasonality, unspecified trigger 09/22/2024 Telephone Adult [facility] - [address] [phone] Mona Fernandez MD Prior Auth (Fluxotine) from Last 3 Months Immunizations Name Administration Dates Next Due Influenza Quadravalent, MDCK , 0.5ml, preservative free (Flucelvax) 6mo and older 05/18/2023,05/14/2022 Influenza Quadrivalent, 0.5m l, preservative free (Fluarix; FluLaval; Fluzone) ages 6mo and older (Afluria) 3yo and older 05/02/2021 Influenza trivalent, MDCK, 0 .5mL, preservative free (Flucelvax) 6mo and older 04/28/2024 Influenza trivalent, with preservative (Fluzone; Afluria) 6mo and older 05/04/2022,05/02/2021,04/21/2020,2018,06/04/2015 Moderna (age 6mo & older) Bi valent, COVID-19, 0.5 mL or 0.25 mL dosage 05/14/2022 Pfizer SARS-CoV-2 COVID-19, mRNA, LNP-S, preservative free 05/04/2022,06/22/2021,06/19/2021 Tdap Tetanus diptheria acell ular pertussis (Boostrix; [...] History Medical History Date Comments Breast CA (CMS/HCC V24, CMS/HCC V28) DX:Breast CA (HCC) Gingivitis due to dental [...] Sign Reading Time Taken Comments Blood Pressure 114/63 12/10/2024 9:07 AM EDT Pulse 70 12/10/2024 9:07 AM EDT Temperature 36.1 ??C (97 ??F) 12/10/2024 9:07 AM EDT Respiratory Rate 16 06/12/2024 8:53 AM EST Oxygen Saturation - - Inhaled Oxygen Concentration - - Weight 42.5 kg (93 lb 9.6 oz) 12/10/2024 9:07 AM EDT Height 149.9 cm (4' 11 ) 12/10/2024 9:07 AM EDT Body Mass Index 18.9 12/10/2024 9:07 AM EDT Plan of Treatment Upcoming Encounters Date Type Department Care Team (Late st Contact Info) Description 12/31/2024 11:20 AM EDT Office Visit Endocrinology - [place] [address] [place] [phone] Kaity Singleton PA [address] [place] [address] 01/01/2025 2:00 PM EDT Office Visit Adult Medicine [facility] [address] [place] [phone] Emilie Dolan PA [address] [place] [address] 01/05/2025 2:30 PM EDT Consult Orthopedic Surgery - [place] [address] [phone] Natalie Nielson PA [address] [phone] 06/12/2025 9:00 AM EST Office Visit Adult [facility] [address] [place] [phone] Mona Fernandez MD [address] [place] [address] Health Maintenance Due Date Last Done Comments Pneumococcal Vaccine: 50+ Years (1 of 1 - PCV) 10/11/2011 Zoster Vaccines (1 of 2) 10/11/2011 Depression Screening 07/08/2022 HIV Screening 07/08/2022 Social Influencers of Health Screening 07/08/2022 DTaP,Tdap,and Td Vaccines (2 - Td or Tdap) 12/12/2023 12/11/2013 Cervical Cancer Screening: Pap Smear 05/11/2024 05/11/2021 COVID-19 Vaccine (9 - Pfizer risk ) 10/26/2024 04/28/2024, 05/18/2023, 05/14/2022, Additional history exists Osteoporosis Screening (Bone Density Screening) 08/15/2025 08/15/2023, 10/05/2020 Breast Cancer Screening 11/08/2025 11/09/2023 Colorectal Cancer Screening: Colonoscopy 01/07/2029 01/08/2024 Cholesterol Screening (Lipid Panel) 06/18/2029 06/18/2024, 12/19/2022 RSV Immunization Adult Patients (1 - 1-dose 75+ series) 2036 Hepatitis C Screening Completed 12/12/2023 Influenza Vaccine Completed 04/28/2024, , 05/14/2022, Additional [...] age to complete this topic Meningococcal B Vaccine Aged Out No l onger eligible based on patient's age to complete [...] Procedure Name Priority Date/Time Associated Diagnosis Comments XR HAND 3+ VIEWS LEFT Routine 12/10/2024 9:58 AM EDT Metacarpophalangeal joint pain of left hand LIPID PANEL WITH REFLEX TO DIRECT LDL Routine 06/18/2024 4:34 PM EST Gastroesophageal reflux disease without esophagitis Age-related osteoporosis without current pathological fracture History of right breast cancer Anxiety HM COLONOSCOPY Routine 01/08/2024 HEPATITIS C SCREENING Routine 12/12/2023 DXA BONE DENSITY STUDY 1+ SITS AXIAL SKEL Routine 08/15/2023 11:36 AM EST Age-related osteoporosis without current pathological fracture PAP SMEAR Routine 05/11/2021 from Last 3 Months or Most Recently Relevant to Health Maintenance Results * XR Hand 3+ Views Left (12/10/2024 9:58 AM EDT) Anatomical Region Laterality Modality Upper Extremities, Hand Left Radiogra phic Imaging 12/10/2024 3:36 PM EDT Impressions 12/10/2024 3:37 PM EDT Mild degenerative change of the fifth MP joint. Otherwise, unremarkable exam. -------- FINAL REPORT -------- Dictated By: Rianna Cruz Dictated Date: 12/10/2024 15:36 ET Assigned Physician: Rianna Cruz Reviewed and Electronically Signed By: Rianna Cruz Signed Date: 12/10/2024 15:37 ET Workstation ID: [id number] Transcribed By: Self Edit Transcribed Date: 12/10/2024 15:36 ET Narrative 12/10/2024 3:37 PM EDT LEFT HAND, 3 VIEWS HISTORY: Hand pain. FINDINGS: There is mild degenerative spurring of the fifth DIP joint. There is no acute fracture, malalignment, joint effusion, soft tissue abnormality, or radiopaque foreign body. Procedure Note Rianna Cruz MD - 12/10/2024 LEFT HAND, 3 VIEWS HISTORY: Hand pain. FINDINGS: There is mild degenerative spurring of the fifth DIP joint. There is no acute fracture, malalignment, joint effusion, soft tissueabnormality, or radiopaque foreign body. IMPRESSION: Mild degenerative change of the fifth MP joint. Otherwise, unremarkableexam. -------- FINAL REPORT -------- Dictated By: Rianna Cruz Dictated Date: 12/10/2024 15:36 ET Assigned Physician: Rianna Cruz Reviewed and Electronically Signed By: Rianna Cruz Signed Date: 12/10/2024 15:37 ET Workstation ID: [id number] Transcribed By: Self Edit Transcribed Date: 12/10/2024 15:36 ET us Lobo BROWN IMG XR PROCEDURES Final Resul t * Lipid panel with reflex to direct LDL (06/18/2024 4:34 PM EST) Cholesterol 195 0 - 200 mg/dL LAB CHEMISTRY METHOD 06/18/2024 7:15 PM EST [facility] Triglycerides 96 0 - 150 mg/dL LAB CHEMISTRY METHOD 06/18/2024 7:15 PM EST [facility] HDL 100 >=40 mg/dL LAB CHEMISTRY METHOD 06/18/2024 7:15 PM EST [facility] LDL Calculated 76 0 - 100 mg/dL LAB CHEMISTRY METHOD 06/18/2024 7:15 PM EST [facility] VLDL Cholesterol Dirk 19.2 mg/dL LAB CHEMISTRY METHOD 06/18/2024 7:15 PM EST [facility] Non HDL Chol. (LDL+VLDL) 95 <145 mg/dL LAB CHEMISTRY METHOD 06/18/2024 7:15 PM EST [facility] Chol/HDL Ratio 2.0 0.0 - 4.4 LAB CHEMISTRY METHOD 06/18/2024 7:15 PM EST [facility] Blood Venous blood specimen / Unknown Venipuncture / Unknown 06/18/2024 4:34 PM EST 06/18/2024 4:34 PM EST us Mona Fernandez MD LAB BLOOD ORDERABLES F inal Result [facility] [address] [place] [address], [place] [phone] * Hm Colonoscopy (01/08/2024) Pathologist [facility] Colonoscopy No Interpretation , Abstracted Anatomical Region Laterality Modality Other us Historical Provider HEALTH MAINTENANCE Final Result * Hepatitis C Screening (12/12/2023) Pathologist [facility] Hepatitis C Screening Abstracted us Historical Provider HEALTH MAINTENANCE Final Result * [...] IMPRESSION: ?? Osteopenia by WHO criteria. The [facility] Department of Internal Medicine recommends using National [...] alternative screening schedule based on jose Moseley., [facility] August 17, 2011 for patients with osteopenia [...] IMPRESSION: IMPRESSION: Osteopenia by WHO criteria. The [facility] Department of Internal Medicine recommendsusing National Osteoporosis [...] -1.50 and higher), BMD testingevery 15 years us Kaity BROWN IMG DXA PROCEDURES Final Result * Pap Smear (05/11/2021) Pap smear No Interpretation , Abstracted us Historical Provider MD HEALTH MAINTENANCE Final Result from Last 3 Months or Most Recently Relevant to Health Maintenance Insurance [facility] Care Teams Wood Gluer Relationship Specialty Start Date End Date Mona Fernandez MD [address] [place] [phone] PCP - General Internal Medicine 03/03/22
--- NOTE | 2024-12-19 12:27 | A.OFFVIS_ITS ---
Vital Signs 12/19/24 12:33 Height 4 ft 11 in Weight 91 lb BMI 18.4 BP 113/53 L Blood Pressure Location Lt brachial Position Sitting Pulse 69 Pulse Oximetry (%) 99 Oxygen Delivery Method Room Air Intake Visit Reasons: Abnormal Weight Loss Intake Note: Patient new consult for abnormal weight loss. Patient cc: good appetite with weight loss, denies any other GI issues. Charge Account Identification Clerk Required: No Accompanied by: Self / Same As Patient Allergies No Known Allergies [No Known Allergies*] Allergy (Verified 12/19/24 12:30) Medication List - Last Reconciled 12/19/24 by KELL Fernandez alendronate 35 mg PO QWEEK cholecalciferol (vitamin D3) 100 mcg PO DAILY dicyclomine 10 mg PO Q6H PRN famotidine (Pepcid) 40 mg PO BEDTIME fluoxetine 10 mg PO DAILY fluoxetine (Prozac) 10 mg PO DAILY fluticasone propionate 50 mcg/actuation sprays intranasal hyoscyamine sulfate (Levsin/SL) 0.125 mg PO BID PRN loratadine (Claritin) 10 mg PO DAILY pyridoxine (vitamin B6) 100 mg PO DAILY 90 days HPI HPI Abnormal Weight Loss: Details: 64-YEAR-OLD FEMALE HERE FOR INITIAL EVALUATION of abnormal weight loss. She is referred by our neurology dept but her PCP is at [facility]. PMX Nephrolithiasis Osteoporosis IBS GERD Umbilical hernia * SURGICAL HISTORY Lithotripsy Breast lumpectomy * ALLERGIES: NKDA * [place] LABS: None recent Correspondence On 09/04/24 @ 10:12 Tressa Dickerson Wrote To Meliza Fitch Good morning October, I am referring this patient to you. She has been followed by Dr. Ortiz in the past. Patient states she recently had an appointment with him specifically to discuss her GI symptoms, however per patient, he told her that this was not in his realm of expertise. Last colonoscopy was reported as normal. She describes lifelong flatulence, which has provoked anxiety throughout her life. Post menopause, she had even increased food intolerance, some of what sounds like lactose intolerance, but there is also a degree of intolerance for higher fat foods. She has tried to make some dietary modifications. But she has lost over 10 lb in the past year. She is anxious at baseline, but this is actually improved since she started on fluoxetine. I suggested she have a consult with you, as you have helped many of my patients better manage their GI symptoms, which she was agreeable to. Please let me know if you have any questions, Tressa TODAY'S VISIT She had been seeing Dr. Ortiz since 2007 and he told her that her problems were not in his realm. 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 She has alwasys had problems with milk, but can tolerate other dairy. IN her 20s she went to work and had social anxiety problems. She started having problems with flatulence, and a doctor gave her ativan to manage it. She then and wanted to get off of medications to get . Her stomach problems improved with raising her children. THEN she went through menopause and her anxiety and stomach problems returned. Now she also has associated sx of memory problems, and she was told by someone to eat more salmon and seafood, but this gave her diarrhea. She then started on metamucil biscuits and this helped. She could nto take hormone therapy r/t breast cancer. About a year ago she lost 10 lbs down to 85lbs. She then went on bentyl for 6 years. This was rxed by her PCP and Dr. Ortiz seemed to think this was for something else. She has been told she had IBS, colitis, and GERD at various times. NOw she is finding a wider variety of foods bothering her stomach. She is bothered by junk food (although she was able to tolerate in past) such as dessert and candies/sugar, chocolate, cookies, and she has been having stomach aches flatulence. BUT she also says that if she eats chocolate she will have greater gas and poop all day. SHe has been on omeprazole for years and fears this effects her memory. She has GERD triggered by salad dressings and eating too fast causes some dysphagia and the food will pass with fluids. She had an EGD in 2007. She has a hx of TA and has scopes [id number]. She has nephrolithiasis so can't take tums. No food allergy testing, no recent barium swallow (consider if swallowing worsens) , she IS on aendronate which worsens GERD sto start Pepcid. Trial of levsin sl, get food allergy testing, pancreatic elastase, blood work. The differential diagnosis is wide and it is entirely possible that this is a functional disorder based on her body's reaction to stress more than a disease of the GI tract. I am giving her the FODMAP diet just for her consideration but given that the symptoms are intermittent this might not be of much helped her. I think will do a trial of hyoscyamine to see if she has any adverse reactions to it that seem to be similar to what she has been she is on dicyclomine. Apparently within the 1st 15 minutes of the taking affect she feels that her short-term memory retrieval seems to greatly worsened. Although this also has anticholinergic overlies, people can react quite differently to different molecules so I think it is worth a try. Otherwise we also discussed the role of peppermint tincture for IBS and even the [id number] supplement IBgard as something that may help without having a lot of side effects. We also will consider food allergies along with exocrine pancreatic insufficiency as it does not seem that these things were explored in the past. Her symptoms improved in the past with Ativan but of course that would not be an appropriate intervention for GI provider. She has had trouble tolerating multiple antidepressants related to drowsiness, but now seems to be doing better on Prozac taking it before bedtime. This was a very long visit because of the patient's extensive history and because of her difficulty in relating the history probably related to her anxiety. She is very easily distracted and goes off on tangents and sometimes it is hard to know when to redirect her as at times the tangents do offer i nsight to the GI situation. Return office visit in 8 weeks [facility] Medical History (Updated 12/19/24 @ 13:39 by KELL Fernandez) Hearing loss Seasonal allergic rhinitis Osteoporosis GERD (gastroesophageal reflux disease) Surgical History H/O lithotripsy H/O lumpectomy Family History Father Prostate CA Diabetes HTN (hypertension) Mother HTN (hypertension) Parkinson disease Dementia Sister Thyroid cancer Social History Alcohol intake: current Patient Tobacco Use Status: Never used Tobacco Review of Systems Const Denies fatigue, Denies fever(s), Denies night sweats, Denies poor appetite, Reports weight gain and Reports weight loss ENT Reports Normal hearing present, Denies dental pain, Denies dysphagia, Denies hearing loss, Denies mouth pain, Denies odynophagia, Denies throat swelling, Denies tongue swelling and Reports other (Dentition adequate) Card Reports no additional complaints Resp Reports no additional complaints GI Details: Denies abdominal pain, Denies melena, Denies bloating, Denies hematochezia, Denies constipation, Denies GI cramping, Denies dysphagia, Reports excessive flatus, Denies early satiety, Reports dyspepsia, Reports heartburn, Denies diarrhea, Denies nausea, Denies odynophagia, Denies vomiting and Denies hematemesis Skin/Breast Denies pruritus, Denies lesions, Denies rash and Denies jaundice Neuro Reports Normal hearing present and Denies Abnormal speech present Endo Denies fatigue Aller/Immun Denies throat swelling and Denies tongue swelling Physical Exam Vital Signs: Last Vital Signs Pulse 69 12/19/24 12:33 BP 113/53 L 12/19/24 12:33 Pulse Ox 99 12/19/24 12:33 Oxygen Delivery Method Room Air 12/19/24 12:33 BMI result Body Mass Index 18.4 Const General: cooperative, no acute distress, well developed and well groomed Nutritional Appearance: well nourished and thin Orientation/consciousness: oriented to person, oriented to place and oriented to time Limitations: No language barrier HEENT Head: Yes normocephalic and Yes atraumatic Eyes General: appearance normal, both eyes and all related structures Pupils: Equal, round and reactive pupils present Neck Neck: Yes normal visual inspection and Yes no lymphadenopathy Thyroid: Thyroid normal Resp Effort & Inspection: normal respiratory effort and able to speak in complete sentences Auscultation: clear to auscultation bilaterally Cardio Rate: regular rate Rhythm: regular rhythm Heart sounds: Normal, physiologic split S2 sound present Peripheral pulses: radial pulses present and posterior tibial pulses present GI Inspection: No distended and No Abdominal panniculus present Palpation (GI): Soft to palpation, nontender, no guarding, not rigid and No hepatosplenomegaly present Percussion: Yes normal to percussion Auscultation: normal bowel sounds Rectal Exam - Female: deferred Skin General skin exam: no rashes or lesions noted, turgor normal, skin not dry, no jaundice, No spider nevi and no striae Rashes: no rashes Nails: normal Neuro General: oriented to person, oriented to place and oriented to time Cranial nerves: Yes Equal, round and reactive pupils present and Yes Normal hearing present Speech: No Abnormal speech present Extrem General: Yes normal to inspection, No clubbing, No cyanosis and No edema Psych Appearance: grossly normal and well kempt Mental Status: mental status grossly normal Speech and movement: Normal speech and movement present Affect: normal affect Attitude: cooperative Thought process: Normal thought process present and not confabulating Thought content: Normal thought content present Insight: Good insight present (Psych) Judgement: Good judgement present (Psych) Assessment & Plan Assessment & Plan (1) GERD (gastroesophageal reflux disease): Code(s): K21.9 - Gastro-esophageal reflux disease without esophagitis Category: Medical (2) Loose stools: Code(s): R19.5 - Other fecal abnormalities Category: Medical (3) IBS (irritable bowel syndrome): Code(s): K58.9 - Irritable bowel syndrome, unspecified Category: Medical (4) Abdominal pain: Code(s): R10.9 - Unspecified abdominal pain Category: Medical Plan She had been seeing Dr. Ortiz since 2007 and he told her that her problems were not in his realm. She has had assisted stomach problems since childhood. She has always had problems with milk, but can tolerate other dairy. IN her 20s she went to work and had social anxiety problems. She started having problems with flatulence, and a doctor gave her ativan to manage it. She then and wanted to get off of medications to get . Her stomach problems improved with raising her children. THEN she went through menopause and her anxiety and stomach problems returned. Now she also has associated sx of memory problems, and she was told by someone to eat more salmon and seafood, but this gave her diarrhea. She then started on metamucil biscuits and this helped. She could nto take hormone therapy r/t breast cancer. About a year ago she lost 10 lbs down to 85lbs. She then went on bentyl for 6 years. This was rxed by her PCP and Dr. Ortiz seemed to think this was for something else. She has been told she had IBS, colitis, and GERD at various times. Now she is finding a wider variety of foods bothering her stomach. She is bothered by junk food (although she was able to tolerate in past) such as dessert and candies/sugar, chocolate, cookies, and she has been having stomach aches flatulence. BUT she also says that if she eats chocolate she will have greater gas and poop all day. She has been on omeprazole for years and fears this effects her memory. She has GERD triggered by salad dressings and eating too fast causes some dysphagia and the food will pass with fluids. She had an EGD in 2007. She has a hx of TA and has scopes [id number]. She has nephrolithiasis so can't take tums. No food allergy testing, no recent barium swallow (consider if swallowing worsens) , she IS on alendronate which worsens GERD so start Pepcid. Trial of levsin sl, get food allergy testing, pancreatic elastase, blood work. The differential diagnosis is wide and it is entirely possible that this is a functional disorder based on her body's reaction to stress more than a disease of the GI tract. I am giving her the FODMAP diet just for her consideration but given that the symptoms are intermittent this might not be of much helped her. I think will do a trial of hyoscyamine to see if she has any adverse reactions to it that seem to be similar to what she has been she is on dicyclomine. Apparently within the 1st 15 minutes of the taking affect she feels that her short-term memory retrieval seems to greatly worsened. Although this also has anticholinergic overlies, people can react quite differently to different molecules so I think it is worth a try. Otherwise we also discussed the role of peppermint tincture for IBS and even the pixx-zrx-dopvirv supplement IBgard as something that may help without having a lot of side effects. We also will consider food allergies along with exocrine pancreatic insufficiency as it does not seem that these things were explored in the past. Her symptoms improved in the past with Ativan but of course that would not be an appropriate intervention for GI provider. She has had trouble tolerating multiple antidepressants related to drowsiness, but now seems to be doing better on Prozac taking it before bedtime. This was a very long visit because of the patient's extensive history and because of her difficulty in relating the history probably related to her anxiety. She is very easily distracted and goes off on tangents and sometimes it is hard to know when to redirect her as at times the tangents do offer insight to the GI situation. Return office visit in 8 weeks Orders: Orders Rast Allergen 12/19/24 R19.5 - Other fecal abnormalities US abdomen complete 12/19/24 R10.9 - Unspecified abdominal pain Comprehensive Met. Panel 12/19/24 K21.9 - Gastro-esophageal reflux disease without esophagitis TSH reflex Free T4 12/19/24 K21.9 - Gastro-esophageal reflux disease without esophagitis Pancreatic Elastase-1 12/19/24 K21.9 - Gastro-esophageal reflux disease without esophagitis Complete Blood Count Auto Diff 12/19/24 K21.9 - Gastro-esophageal reflux disease without esophagitis Medications: New famotidine (Pepcid) 40 mg PO BEDTIME 30 tabs 6RF K21.9 - Gastro-esophageal reflux disease without esophagitis hyoscyamine sulfate (Levsin/SL) 0.125 mg PO BID PRN 60 tabs 3RF dyspepsia K58.9 - Irritable bowel syndrome, unspecified Coding Level of Care Code New Pt Level 3 (02044) Diagnoses GERD (gastroesophageal reflux disease) K21.9 Loose stools R19.5 IBS (irritable bowel syndrome) K58.9 Abdominal pain R10.9
[2024-12-19 12:33] VITALS: BP 113/53; PULSE 69; O2SAT 99; BMI 18.4
== END 2024-12-19 18:20 ==
LOC: HO.HGI 12:06
PROVIDERS: PCP Family Medicine; Visit Provider Nurse Practitioner
DX: K21.9 Gastro-esophageal reflux disease without esophagitis (principal); R19.5 Other fecal abnormalities; K58.9 Irritable bowel syndrome, unspecified; R10.9 Unspecified abdominal pain
CPT/HCPCS: 99203

== ENCOUNTER 2024-12-19 12:05 | Outpatient (REF) | payer BC, SELFPAY | END 2024-12-19 12:06 | disposition home or self-care (01) | LOC: HO.LAB 12:05 | PROVIDERS: PCP Family Medicine; Visit Provider Nurse Practitioner | DX: Z13.89 Encounter for screening for other disorder (principal) ==

== ENCOUNTER 2024-12-24 12:13 | Outpatient (REF) | payer BC, SELFPAY ==
[2024-12-24 12:36] LABS: MANUAL DIFF FLAG NO
--- OUTSIDE RECORDS SUMMARY | 2024-12-24 12:56 | XMS_ITS | Clinical Summary ---
Author Organization [facility] [address] [facility] Address [address] [place] [address] Phone Care Team Providers Care Laminator Name Role Phone Mona Fernandez MD Primary [...] (05/04/2024): Left, near right lumpectomy site 07/09/18, [facility] will recall patient for additional imaging Atypical [...] 11:59 PM EDT Hospital Encounter Xray - [place] [address] [place] [phone] Metacarpophalangeal joint pain of left hand Discharge Disposition: Home or Self Care 12/10/2024 8:45 AM EDT Office Visit Adult Medicine - [place] [address] [place] [phone] Lobo Ji PA Anxiety (Primary Dx); Gastroesophageal reflux disease, unspecified whether esophagitis present; Age-related osteoporosis without current pathological fracture; Metacarpophalangeal joint pain of left hand; Hearing loss due to cerumen impaction, bilateral; Allergic rhinitis, unspecified seasonality, unspecified trigger from Last 3 Months Immunizations Name Administration [...] normal historic UPPER GASTROINTESTINAL ENDOSCOPY 2007 PROCEDURE: [place] UPPER GI ENDOSCOPY PERFORMED OTHER SURGICAL HISTORY [...] 11:20 AM EDT Office Visit Endocrinology - [place] [address] [place] [phone] Kaity Singleton PA [address] [place] [address] 01/01/2025 2:00 PM EDT Office Visit Adult Medicine [facility] [address] [place] [phone] Emilie Dolan PA [address] [place] [address] 01/05/2025 2:30 PM EDT Consult Orthopedic Surgery - [place] [address] [phone] Natalie Nielson PA [address] [facility] [address] [place] [phone] 06/12/2025 9:00 AM EST Office Visit Adult [facility] [address] [place] [phone] Mona Fernandez MD [address] [place] [address] Health Maintenance Due Date Last Done Comments Pneumococcal Vaccine: 50+ Years (1 of 1 - PCV) 10/11/2011 Zoster Vaccines (1 of 2) 10/11/2011 Depression Screening 07/08/2022 HIV Screening 07/08/2022 Social Influencers of Health Screening 07/08/2022 DTaP,Tdap,and Td Vaccines (2 - Td or Tdap) 12/12/2023 12/11/2013 Cervical Cancer Screening: Pap Smear 05/11/2024 05/11/2021 COVID-19 Vaccine (9 - Pfizer risk season) 2024 04/28/2024, 05/18/2023, 05/14/2022, Additional history exists Osteoporosis [...] Signed Date: 12/10/2024 15:37 ET Workstation ID: [id number] Transcribed By: Self Edit Transcribed Date: 12/10/2024 [...] Signed Date: 12/10/2024 15:37 ET Workstation ID: [id number] Transcribed By: Self Edit Transcribed Date: 12/10/2024 15:36 ET us Lobo BROWN IMG XR PROCEDURES Final Resul t * Lipid panel with reflex to direct LDL (06/18/2024 4:34 PM EST) Cholesterol 195 0 - 200 mg/dL LAB CHEMISTRY METHOD 06/18/2024 7:15 PM EST [facility] Triglycerides 96 0 - 150 mg/dL LAB CHEMISTRY METHOD 06/18/2024 7:15 PM EST [facility] HDL 100 >=40 mg/dL LAB CHEMISTRY METHOD 06/18/2024 7:15 PM EST [facility] LDL Calculated 76 0 - 100 mg/dL LAB CHEMISTRY METHOD 06/18/2024 7:15 PM EST [facility] VLDL Cholesterol Dirk 19.2 mg/dL LAB CHEMISTRY METHOD 06/18/2024 7:15 PM EST [facility] Non HDL Chol. (LDL+VLDL) 95 <145 mg/dL LAB CHEMISTRY METHOD 06/18/2024 7:15 PM EST [facility] Chol/HDL Ratio 2.0 0.0 - 4.4 LAB CHEMISTRY METHOD 06/18/2024 7:15 PM EST [facility] Blood Venous blood specimen / Unknown Venipuncture / Unknown 06/18/2024 4:34 PM EST 06/18/2024 4:34 PM EST us Mona Fernandez MD LAB BLOOD ORDERABLES F inal Result [facility] [address] [place] [address], [place] [phone] * Colonoscopy (01/08/2024) Colonoscopy No Interpretation , Abstracted Anatomical Region Laterality Modality Other Historical Provider HEALTH MAINTENANCE Final Result * Hepatitis C Screening (12/12/2023) [facility] Hepatitis C Screening Abstracted us Historical Provider [...] IMPRESSION: ?? Osteopenia by WHO criteria. [facility] Department of Internal Medicine recommends [...] alternative screening schedule based on jose Moseley., BANNER August 17, 2011 for patients with osteopenia [...] IMPRESSION: IMPRESSION: Osteopenia by WHO criteria. [facility] Department of Internal Medicine recommendsusing [...] Most Recently Relevant to Health Maintenance Insurance [facility] Care Teams Laminator Relationship Specialty Start Date End Date Mona Fernandez MD [address] [place] [id number] PCP - General Internal Medicine 03/03/22
[2024-12-24 13:48] LABS: Basophils Percent Auto 0.7 % (0-2); Eosinophils Absolute Auto 0.1 X10*3/uL (0.0-0.4); Eosinophils Percent Auto 1.9 % (0-4); Hematocrit 35.6 % (37.0-47.0); Hemoglobin 12.4 g/dl (12.0-16.0); Imm Gran Abs Auto 0.02 X10*3/uL (0.00-0.03); Imm Gran Pct Auto 0.3 % (0.0-0.4); Lymphocytes Absolute Auto 2.1 X10*3/uL (1.2-4.9); Lymphocytes Percent Auto 35.9 % (20-40); Mean Corpuscular HGB Conc 34.8 g/dl (31.0-35.0); Mean Corpuscular Hemoglobin 32.5 pg (27.0-33.0); Mean Corpuscular Volume 93.4 fL (80.0-98.0); Mean Platelet Volume 9.9 fL (9.4-12.3); Monocytes Absolute Auto 0.5 X10*3/uL (0.1-1.2); Monocytes Percent Auto 8.5 % (2-11); Neutrophils Absolute Auto 3.1 x10*3/uL (2.0-8.3); Neutrophils Percent Auto 52.7 % (45-73); Platelet Count 250 X10*3/uL (160-400); Red Blood Count 3.81 X10*6/uL (4.20-5.50); Red Cell Distribution Width 11.6 % (11.0-16.0); White Blood Count 5.8 X10*3/uL (4.8-10.8)
[2024-12-24 14:31] LABS: Alanine Aminotransferase 27 U/L (0-31); Alkaline Phosphatase 80 U/L (39-117); Anion Gap 13 (12-20); Aspartate Amino Transferase 37 U/L (5-31); Bilirubin Total 0.9 mg/dL (0.0-1.0); Blood Urea Nitrogen 13 mg/dL (9-16); Calcium 9.7 mg/dL (8.4-10.2); Carbon Dioxide 27 mmol/L (22-29); Chloride 106 mmol/L (96-108); Estimated Glomerular Filt Rate > 60; Glucose Random 137 mg/dL (60-115); Potassium 3.7 mmol/L (3.3-5.1); Sodium 142 mmol/L (135-145); TSH reflex Free T4 1.07 uIU/mL (0.32-4.0); Total Protein 7.8 g/dL (6.5-8.0)
[2024-12-26 13:48] LABS: Class Almond 0; Class Brazil Nut 0; Class Cashew 0; Class Codfish 0; Class Cow's Milk 0; Class Egg white 0; Class Hazelnut 0; Class Macadamia Nut 0; Class Peanut 0; Class Salmon 0; Class Scallop 0; Class Sesame Seed 0; Class Shrimp 0; Class Soybean 0; Class Tuna 0; Class Walnut 0; Class Wheat 0; F001-IgE Egg White <0.10 kU/L; F002-IgE Milk <0.10 kU/L; F003-IgE Codfish <0.10 kU/L; F004-IgE Wheat <0.10 kU/L; F010-IgE Sesame Seed <0.10 kU/L; F013-IgE Peanut <0.10 kU/L; F014-IgE Soybean <0.10 kU/L; F017-IgE Hazelnut (Filbert) <0.10 kU/L; F018-IgE Brazil Nut <0.10 kU/L; F020-IgE Almond <0.10 kU/L; F024-IgE Shrimp <0.10 kU/L; F040-IgE Tuna <0.10 kU/L; F041 IgE Salmon <0.10 kU/L; F202-IgE Cashew Nut <0.10 kU/L; F256-IgE Walnut <0.10 kU/L; F338-IgE Scallop <0.10 kU/L; F345-IgE Macadmia Nut <0.10 kU/L
== END 2024-12-24 12:14 | disposition home or self-care (01) ==
LOC: HO.LAB 12:13
PROVIDERS: PCP Family Medicine; Visit Provider Nurse Practitioner
DX: K21.9 Gastro-esophageal reflux disease without esophagitis (principal); R19.7 Diarrhea, unspecified
CPT/HCPCS: 36415; 80053; 84443; 85025; 86003

== ENCOUNTER 2025-02-17 07:59 | Outpatient (REF) | payer BC, SELFPAY ==
--- NOTE | ~2025-02-17 | US_ITS ---
CLINICAL HISTORY: R10.9 - Unspecified abdominal pain US abdomen complete Comparison: US - US RENAL BI - 08/27/24 14:[address]/SR - CT ABDOMEN PELVIS WITHOUT IV CONTRAST RENAL CALCULI - 01/07/24 15:44 EDT US/[place]/SR - US KIDNEY BILATERAL - 10/30/23 09:47 EDT Findings: Pancreas is obscured due to overlying bowel gas. The aorta and inferior vena cava are normal caliber. Liver is 11.3 cm in length. There is no intrahepatic bile duct dilatation. Common bile duct is 0.4 cm in diameter. Gallbladder wall thickness measures 0.3 cm. The main portal vein is patent. Right kidney is 10 cm in length. Cyst in the lower pole of the right kidney lateral aspect measuring 0.9 x 0.6 x 0.6 cm. Left kidney measures 9.2 cm in length. Linear twinkle artifact which may represent a calcified vessel in the lower pole of the left kidney. There is a left mid kidney nephrolithiasis measuring 0.3 cm. Spleen is 7.3 cm in length. No ascites. There are clustered nephrolithiasis measuring 0.4 x 0.5 x 0.3 cm in the lower pole. There is a mid kidney nephrolithiasis measuring 0.3 x 0.3 x 0.2 cm. IMPRESSION: 1. Pancreas is obscured due to overlying bowel gas. 2. There are clustered nephrolithiasis measuring 0.4 x 0.5 x 0.3 cm in the lower pole. There is a mid kidney nephrolithiasis measuring 0.3 x 0.3 x 0.2 cm. No hydronephrosis. 3. There is a left mid kidney nephrolithiasis measuring 0.3 cm. No hydronephrosis. This document has been electronically signed by: Yahir Reynolds DO on 02/18/2025 09:32:23
--- OUTSIDE RECORDS SUMMARY | 2025-02-17 08:02 | XMS_ITS | Clinical Summary ---
Author Organization [facility] [address] [facility] Address [address] [place] [address] Phone Care Team Providers Care Road Gang Supervisor Name Role Phone Mona Fernandez MD [...] NEEDED FOR GAS DISCOMFORT 04/26/20 23 Active pyridoxine (B-6) 100 mg tablet Take [...] BY MOUTH EVERY 7 DAYS 4 tablet 12/12/19 25 Active FLUoxetine (PROzac) 10 mg tablet Take 1 tablet (10 mg total) by mouth 1 (one) time each day. 90 tablet 12/11/19 25 Active Active Problems Problem Noted Date Diagnosed Date Umbilical hernia 02/15/2021 Snoring 01/26/2021 Overview (05/04/2024): 12/2020 Home Sleep Study did not reveal sleep apnea or nocturnal hypoxia. Microcalcifications of the breast 07/10/2018 Overview (05/04/2024): Left, near right lumpectomy site 07/09/18, [facility] will recall patient for additional imaging Atypical [...] Encounters Date Type Department Care Team Description 01/08/2025 8:30 AM EDT Office Visit Endocrinology - [address] [phone] Kishor Courtney MD Age-related osteoporosis without current pathological fracture (Primary Dx) 01/06/2025 Telephone Endocrinology [address] [phone] Kishor Courtney MD Referral (Endo) 01/05/2025 2:30 PM EDT Consult Orthopedic Surgery - [place] [facility] [address] [place] [address] Natalie Nielson PA Trigger finger of left thumb 01/01/2025 2:00 PM EDT Office Visit [address] [phone] Emilie Dolan PA Bilateral impacted cerumen (Primary Dx) 12/10/2024 9:45 AM EDT - 12/10/2024 11:59 PM EDT Hospital Encounter [address] [phone] Metacarpophalangeal joint pain of left hand Discharge Disposition: Home or Self Care 12/10/2024 8:45 AM EDT Office Visit [address] [phone] Lobo Ji PA Anxiety (Primary Dx); Gastroesophageal [...] 0.5 mL or 0.25 mL dosage 05/14/2022 Joinnus SARS-CoV-2 COVID-19, mRNA, LNP-S, preservative free 05/04/2022,06/22/2021,06/19/2021 Tdap Tetanus diptheria acell ular pertussis (Boostrix; Adacel) 7yo and older 12/11/2013 Surgical History Surgery Date Site/Laterality Comments BREAST LUMPECTOMY 04/09/08 PROCEDURE: HISTORICAL BREAST LUMPECTOMY CATARACT EXTRACTION 08/2009, 09/2009 PROCEDURE: HISTORICAL CATARACT REMOVAL; COMMENT: bilateral COLONOSCOPY 2007, 04/2013 PROCEDURE: HISTORICAL COLONOSCOPY; COMMENT: normal historic UPPER GASTROINTESTINAL ENDOSCOPY 2007 PROCEDURE: [place] UPPER GI ENDOSCOPY PERFORMED OTHER SURGICAL HISTORY [...] = 0.6 oz pur e alcohol) Comments No Sex and Gender Information Value Date Recorded Sex Assigned at Not on file Legal Sex Female 10:25 AM EST Gender Identity Not on file Sexual Orientation Not on file Obstetrics History Last Filed Vital Signs Vital Sign Reading Time Taken Comments Blood Pressure 112/62 01/08/2025 8:40 AM EDT C Pulse 85 01/08/2025 8:40 AM EDT Temperature 36.3 C (97.3 F) 01/08/2025 8:40 AM EDT Respiratory Rate 16 06/12/2024 8:53 AM EST Oxygen Saturation - - Inhaled Oxygen Concentration - - Weight 41.3 kg (91 lb) 01/08/2025 8:40 AM EDT Height 149.9 cm (4' 11 ) 01/08/2025 8:40 AM EDT Body Mass Index 18.38 01/08/2025 8:40 AM EDT Plan of Treatment Upcoming Encounters Date Type Department Care Team (Late st Contact Info) Description 06/12/2025 9:00 AM EST Office Visit Adult Medicine - [place] [address] [place] [phone] Mona Fernandez MD [address] [place] [address] 09/24/2025 8:00 AM EST Office Visit Endocrinology - [place] [address] [place] [phone] Kaity Singleton PA [address] [place] [address] Health Maintenance Due Date Last Done Comments Zoster Vaccines (1 of 2) 1980 Pneumococcal Vaccine: 50+ Years (1 of 1 - PCV) 10/11/2011 HIV Screening 07/08/2022 Social Influencers of Health Screening 07/08/2022 DTaP,Tdap,and Td Vaccines (2 - Td or Tdap) 12/12/2023 12/11/2013 Cervical Cancer Screening: Pap Smear 05/11/2024 05/11/2021 Depression Screening 07/30/2024 COVID-19 Vaccine (9 - Pfizer risk 2023- season) 2024 04/28/2024, 05/18/2023, 05/14/2022, Additional history exists Influenza Vaccine (#1) 2025 , 05/18/2023, 05/14/2022, Additional history exists Osteoporosis Screening (Bone Density Screening) 08/15/2025 08/15/2023, 10/05/2020 Breast Cancer Screening 11/08/2025 11/09/2023 Colorectal Cancer Screening: Colonoscopy 01/07/2029 01/08/2024 Cholesterol Screening (Lipid Panel) 06/18/2029 06/18/2024, 12/19/2022 RSV Immunization Adult Patients (1 - 1-dose 75+ series) 2036 Hepatitis C Screening Completed 12/12/2023 HIB Vaccines Aged Out No longer eligi [...] Procedure Name Priority Date/Time Associated Diagnosis Comments AZ INJECTION SINGLE TENDON SHEATH OR LIGAMENT APONEUROSIS Routine 01/05/2025 2:30 PM EDT Trigger finger of left thumb AZ REMOVAL CERUMEN IMPACTED IRRIGATION/LAVAGE UNILATERAL Routine 01/01/2025 2:20 PM EDT Bilateral impacted cerumen XR HAND 3+ VIEWS LEFT Routine 12/10/2024 [...] Recently Relevant to Health Maintenance Results * AZ INJECTION SINGLE TENDON SHEATH OR LIGAMENT APONEUROSIS (01/05/2025 2:30 PM EDT) Natalie Mccoy PA - 01/05/2025 2:30 PM EDT KEVIN Kaur 01/05/2025 2:51 PM Hand / UE Inj/Asp: L thumb A1 for trigger finger Indications: pain Details: 25 G needle, volar approach Medications: 40 mg triamcinolone acetonide 40 mg/mL; 0.5 mL lidocaine 1 % Informed Consent: Relevant images/test results available and reviewed: yes Health status cleared: Yes Procedure/treatment, purpose, treatment alternatives, risks/potential complications and benefits explained: yes Risk/complications/benefits details: Risks of infection, thinning of the skin and temporary skin discoloration discussed. Discussed risks of temporary increased pain after injection and swelling and mild redness at injection site for couple days. Explained occasionally cortisone injection can cause facial flushing temporarily. Benefits pain management. For postop injection pain ice, Tylenol and/or NSAIDs if patient can take Patient questions answered: yes Patient agrees, verbalizes understanding, and wants to proceed: yes Consent given by: Patient Informed consent discussion completed by Physician/NATHANAEL with patient: Verbal Pre-procedure timeout performed: yes Natalie BROWN IN CLINIC/BEDSIDE ORDERABLES Final Result * [place] REMOVAL CERUMEN IMPACTED IRRIGATION/LAVAGE UNILATERAL (01/01/2025 2:20 PM EDT) Emilie Cui PA - 01/01/2025 2:20 PM EDT KEVIN Rausch 01/01/2025 2:26 PM Ear cerumen removal Date/Time: 01/01/2025 2:20 PM Performed by: KEVIN Rausch Authorized by: KEVIN Rausch Informed Consent: Laterality: Bilateral Relevant images/test results available and reviewed: no Health status cleared: Yes Procedure/treatment, purpose, treatment alternatives, risks/potential complications and benefits explained: yes Patient questions answered: yes Patient agrees, verbalizes understanding, and wants to proceed: yes Consent given by: Patient Informed consent discussion completed by Physician/NATHANAEL with patient: Verbal Pre-procedure timeout performed: no Procedure details: Location: R ear and L ear Procedure type: irrigation Post-procedure details: Inspection: TM intact Hearing quality: Normal Patient tolerance of procedure: Tolerated well, no immediate complications us Emilie BROWN IN CLINIC/BEDSIDE ORDERABL ES Final Result * XR Hand 3+ Views Left (12/10/2024 [...] Signed Date: 12/10/2024 15:37 ET Workstation ID: [id number] Transcribed By: Self Edit Transcribed Date: 12/10/2024 [...] Signed Date: 12/10/2024 15:37 ET Workstation ID: [id number] Transcribed By: Self Edit Transcribed Date: 12/10/2024 15:36 ET us Lobo BROWN IMG XR PROCEDURES Final Resul t * Lipid panel with reflex to direct LDL (06/18/2024 4:34 PM EST) Cholesterol 195 0 - 200 mg/dL LAB CHEMISTRY METHOD 06/18/2024 7:15 PM EST [facility] Triglycerides 96 0 - 150 mg/dL LAB CHEMISTRY METHOD 06/18/2024 7:15 PM EST [facility] HDL 100 >=40 mg/dL LAB CHEMISTRY METHOD 06/18/2024 7:15 PM EST [facility] LDL Calculated 76 0 - 100 mg/dL LAB CHEMISTRY METHOD 06/18/2024 7:15 PM EST [facility] VLDL Cholesterol Dirk 19.2 mg/dL LAB CHEMISTRY METHOD 06/18/2024 7:15 PM EST [facility] Non HDL Chol. (LDL+VLDL) 95 <145 mg/dL LAB CHEMISTRY METHOD 06/18/2024 7:15 PM EST [facility] Chol/HDL Ratio 2.0 0.0 - 4.4 LAB CHEMISTRY METHOD 06/18/2024 7:15 PM EST [facility] Blood Venous blood specimen / Unknown Venipuncture / Unknown 06/18/2024 4:34 PM EST 06/18/2024 4:34 PM EST us Mona Fernandez MD LAB BLOOD ORDERABLES F inal Result [facility] [address] [place] [address], [place] [phone] * Hm Colonoscopy (01/08/2024) Colonoscopy No Interpretation , Abstracted Anatomical Region Laterality Modality Other Historical Provider HEALTH MAINTENANCE Final Result * Hepatitis C Screening (12/12/2023) Hepatitis C Screening Abstracted us Historical Provider [...] Comparison exam(s): 10/05/2020. No statistically significant change in bone mineral density. Lateral survey view of the thoracolumbar spine shows no significant compression deformities. IMPRESSION: IMPRESSION: Osteopenia by WHO criteria. [facility] Department of Internal Medicine [...] alternative screening schedule based on jose Moseley., [facility] August 17, 2011 for patients with osteopenia [...] IMPRESSION: IMPRESSION: Osteopenia by WHO criteria. [facility] Department of Internal Medicine [...] Recently Relevant to Health Maintenance Insurance [facility] Care Teams Road Gang Supervisor Relationship Specialty Start Date End Date Mona Fernandez MD [address] [place] [id number] PCP - General Internal Medicine 03/03/22
== END 2025-02-17 08:00 | disposition home or self-care (01) ==
LOC: HO.US 07:59
PROVIDERS: PCP Family Medicine; Visit Provider Nurse Practitioner
DX: R10.9 Unspecified abdominal pain (principal)
CPT/HCPCS: 76700

== ENCOUNTER → 2025-02-17 08:01 | Outpatient (BNV) | payer BC, SELFPAY | PROVIDERS: PCP Family Medicine; Visit Provider Family Medicine | DX: R10.9 Unspecified abdominal pain (principal) | CPT/HCPCS: 76700 ==

== ENCOUNTER 2025-03-02 16:00 | Outpatient (REF) | payer BC, SELFPAY ==
--- NOTE | ~2025-03-02 | US_ITS ---
EXAMINATION: US KIDNEY BILATERAL HISTORY: N20.0 - Calculus of kidney TECHNIQUE: Real-time grayscale ultrasound imaging of the kidneys was performed and images were reviewed. COMPARISON: Correlation is made with an abdominal ultrasound dated 02/17/2025. FINDINGS: Right kidney: The right kidney measures 9.8 x 2.6 x 4.8 cm. Renal parenchymal echotexture and thickness are normal. There are no masses. There are multiple nonobstructing calculi measuring up to 5 mm in size at the lower pole. There is no hydronephrosis. Left Kidney: The left kidney measures 9.5 x 3.0 x 3.9 cm. Renal parenchymal echotexture and thickness are normal. There are no masses. There are clusters of tiny nonobstructing calculi. There is no hydronephrosis. US/US renal BI IMPRESSION: Bilateral nephrolithiasis. No hydronephrosis. Electronically signed by: Garrison Luong MD 03/03/2025 07:05 AM EDT
--- OUTSIDE RECORDS SUMMARY | 2025-03-02 16:02 | XMS_ITS ---
Author Name [facility] Organization Unknown Care Team Organization Name Specialty Phone Email Start Date End Da te [facility] Mona Fernandez MD Primary Care 06/06/2022 03/17/2024
--- OUTSIDE RECORDS SUMMARY | 2025-03-02 16:02 | XMS_ITS | Clinical Summary ---
Author Organization [facility] [address] [facility] [place] [place] [facility] Address [address] [place] [address] Phone Care Team Providers Care Manager Science Name Role Phone Mona Fernandez MD Primary [...] (05/04/2024): Left, near right lumpectomy site 07/09/18, [facility] will recall patient for additional imaging [...] 8:30 AM EDT Office Visit Endocrinology - [address] [phone] Kishor Courtney MD Age-related osteoporosis without current pathological fracture (Primary Dx) 01/06/2025 Telephone Endocrinology [address] [phone] Kishor Courtney MD Referral (Endo) 01/05/2025 2:30 PM EDT Consult Orthopedic Surgery - [place] 175 [facility] [address] [place] [address] Natalie Nielson PA Trigger finger of left thumb 01/01/2025 2:00 PM EDT Office Visit [address] [phone] Emilie Dolan PA Bilateral impacted cerumen (Primary Dx) 12/10/2024 9:45 AM EDT - 12/10/2024 11:59 PM EDT Hospital Encounter [address] [phone] Metacarpophalangeal joint pain of left hand Discharge Disposition: Home or Self Care 12/10/2024 8:45 AM EDT Office Visit [address] [phone] Lobo Ji PA Anxiety (Primary Dx); Gastroesophageal [...] 0.5 mL or 0.25 mL dosage 05/14/2022 JotSpot SARS-CoV-2 COVID-19, mRNA, LNP-S, preservative free 05/04/2022,06/22/2021,06/19/2021 Tdap Tetanus diptheria acell ular pertussis (Boostrix; Adacel) 7yo and older 12/11/2013 Surgical History Surgery Date Site/Laterality Comments BREAST LUMPECTOMY 04/09/08 PROCEDURE: HISTORICAL BREAST LUMPECTOMY CATARACT EXTRACTION 08/2009, 09/2009 PROCEDURE: HISTORICAL CATARACT REMOVAL; COMMENT: bilateral COLONOSCOPY 2007, 04/2013 PROCEDURE: HISTORICAL COLONOSCOPY; COMMENT: normal historic UPPER GASTROINTESTINAL ENDOSCOPY 2007 PROCEDURE: [place] UPPER GI ENDOSCOPY PERFORMED OTHER SURGICAL HISTORY [...] AM EST Office Visit Adult Medicine - [place] [address] [place] [address] Mona Fernandez MD [address] [place] [address] 09/24/2025 8:00 AM EST Office Visit Endocrinology - [place] [address] [place] [address] Kaity Singleton PA [address] [place] [address] Health Maintenance Due Date Last Done Comments [...] Procedure Name Priority Date/Time Associated Diagnosis Comments [place] INJECTION SINGLE TENDON SHEATH OR LIGAMENT APONEUROSIS Routine 01/05/2025 2:30 PM EDT Trigger finger of left thumb MT REMOVAL CERUMEN IMPACTED IRRIGATION/LAVAGE UNILATERAL Routine 01/01/2025 [...] Recently Relevant to Health Maintenance Results * MT INJECTION SINGLE TENDON SHEATH OR LIGAMENT APONEUROSIS [...] BROWN IN CLINIC/BEDSIDE ORDERABLES Final Result * MT REMOVAL CERUMEN IMPACTED IRRIGATION/LAVAGE UNILATERAL (01/01/2025 2:20 [...] Signed Date: 12/10/2024 15:37 ET Workstation ID: [id number] Transcribed By: Self Edit Transcribed Date: 12/10/2024 [...] Signed Date: 12/10/2024 15:37 ET Workstation ID: [id number] Transcribed By: Self Edit Transcribed Date: 12/10/2024 15:36 ET us Lobo BROWN IMG XR PROCEDURES Final Resul t * Lipid panel with reflex to direct LDL (06/18/2024 4:34 PM EST) Cholesterol 195 0 - 200 mg/dL LAB CHEMISTRY METHOD 06/18/2024 7:15 PM EST [facility] Triglycerides 96 0 - 150 mg/dL LAB CHEMISTRY METHOD 06/18/2024 7:15 PM EST [facility] HDL 100 >=40 mg/dL LAB CHEMISTRY METHOD 06/18/2024 7:15 PM EST [facility] LDL Calculated 76 0 - 100 mg/dL LAB CHEMISTRY METHOD 06/18/2024 7:15 PM EST [facility] VLDL Cholesterol Dirk 19.2 mg/dL LAB CHEMISTRY METHOD 06/18/2024 7:15 PM EST [facility] Non HDL Chol. (LDL+VLDL) 95 <145 mg/dL LAB CHEMISTRY METHOD 06/18/2024 7:15 PM EST [facility] Chol/HDL Ratio 2.0 0.0 - 4.4 LAB CHEMISTRY METHOD 06/18/2024 7:15 PM EST [facility] Blood Venous blood specimen / Unknown Venipuncture / Unknown 06/18/2024 4:34 PM EST 06/18/2024 4:34 PM EST us Mona Fernandez MD LAB BLOOD ORDERABLES F inal Result [facility] [address] [place] [address], [place] [phone] * Hm Colonoscopy (01/08/2024) Colonoscopy No Interpretation [...] IMPRESSION: IMPRESSION: Osteopenia by WHO criteria. [facility] Department of Internal Medicine recommends using National [...] alternative screening schedule based on jose Moseley., [facility] August 17, 2011 for patients with osteopenia [...] IMPRESSION: IMPRESSION: Osteopenia by WHO criteria. [facility] Department of Internal Medicine recommendsusing National Osteoporosis [...] Most Recently Relevant to Health Maintenance Insurance [facility] Care Teams Manager Science Relationship Specialty Start Date End Date Mona Fernandez MD [address] [place] [id number] PCP - General Internal Medicine 03/03/22
== END 2025-03-02 16:01 | disposition home or self-care (01) ==
LOC: HO.US 16:00
PROVIDERS: PCP Family Medicine; Visit Provider Nurse Practitioner
DX: N20.0 Calculus of kidney (principal); K21.9 Gastro-esophageal reflux disease without esophagitis
CPT/HCPCS: 76775; 82656

== ENCOUNTER → 2025-03-02 16:01 | Outpatient (BNV) | payer BC, SELFPAY | PROVIDERS: PCP Family Medicine; Visit Provider Radiology Diagnostic Radiology | DX: N20.0 Calculus of kidney (principal) | CPT/HCPCS: 76775 ==

== ENCOUNTER 2025-03-12 11:35 | Outpatient (AMB) | payer BC, SELFPAY ==
[2025-03-12 11:37] VITALS: BP 127/72; PULSE 76; O2SAT 98; BMI 18.3
--- NOTE | 2025-03-12 11:37 | MHC.OFFVIS ---
Vital Signs 03/12/25 11:37 Height 4 ft 11 in Weight 90 lb 6.232 oz BMI 18.3 BP 127/72 Blood Pressure Location Lt brachial Position Sitting Pulse 76 Pulse Source Pulse Oximeter Pulse Oximetry (%) 98 Intake Visit Reasons: 2 mo f/u Weight Mgmt r/s 02/17/25 Intake Note: Ivet presents in office today for weight loss follow up and US and labs results. CC: Patient reports no GI concerns today. 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: No Accompanied by: Self / Same As Patient Allergies No Known Allergies (No Known Allergies*) Allergy (Verified 03/12/25 11:56) HPI HPI 2 mo f/u Weight Mgmt r/s 02/17/25: Details: Assessment & Plan (1) GERD (gastroesophageal reflux disease): Code(s): K21.9 - Gastro-esophageal reflux disease without esophagitis Category: Medical (2) Loose stools: Code(s): R19.5 - Other fecal abnormalities Category: Medical (3) IBS (irritable bowel syndrome): Code(s): K58.9 - Irritable bowel syndrome, unspecified Category: Medical (4) Abdominal pain: Code(s): R10.9 - Unspecified abdominal pain Category: Medical Plan She had been seeing Dr. Ortiz since 2007 and he told her that her problems were not in his realm. 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 She has always had problems with milk, but can tolerate other dairy. IN her 20s she went to work and had social anxiety problems. She started having problems with flatulence, and a doctor gave her ativan to manage it. She then and wanted to get off of medications to get . Her stomach problems improved with raising her children. THEN she went through menopause and her anxiety and stomach problems returned. Now she also has associated sx of memory problems, and she was told by someone to eat more salmon and seafood, but this gave her diarrhea. She then started on metamucil biscuits and this helped. She could nto take hormone therapy r/t breast cancer. About a year ago she lost 10 lbs down to 85lbs. She then went on bentyl for 6 years. This was rxed by her PCP and Dr. Ortiz seemed to think this was for something else. She has been told she had IBS, colitis, and GERD at various times. Now she is finding a wider variety of foods bothering her stomach. She is bothered by junk food (although she was able to tolerate in past) such as dessert and candies/sugar, chocolate, cookies, and she has been having stomach aches flatulence. BUT she also says that if she eats chocolate she will have greater gas and poop all day. She has been on omeprazole for years and fears this effects her memory. She has GERD triggered by salad dressings and eating too fast causes some dysphagia and the food will pass with fluids. She had an EGD in 2007. She has a hx of TA and has scopes [id number]. She has nephrolithiasis so can't take tums. No food allergy testing, no recent barium swallow (consider if swallowing worsens) , she IS on alendronate which worsens GERD so start Pepcid. Trial of levsin sl, get food allergy testing, pancreatic elastase, blood work. The differential diagnosis is wide and it is entirely possible that this is a functional disorder based on her body's reaction to stress more than a disease of the GI tract. I am giving her the FODMAP diet just for her consideration but given that the symptoms are intermittent this might not be of much helped her. I think will do a trial of hyoscyamine to see if she has any adverse reactions to it that seem to be similar to what she has been she is on dicyclomine. Apparently within the 1st 15 minutes of the taking affect she feels that her short-term memory retrieval seems to greatly worsened. Although this also has anticholinergic overlies, people can react quite differently to different molecules so I think it is worth a try. Otherwise we also discussed the role of peppermint tincture for IBS and even the rohd-pnu-bgzayba supplement IBgard as something that may help without having a lot of side effects. We also will consider food allergies along with exocrine pancreatic insufficiency as it does not seem that these things were explored in the past. Her symptoms improved in the past with Ativan but of course that would not be an appropriate intervention for GI provider. She has had trouble tolerating multiple antidepressants related to drowsiness, but now seems to be doing better on Prozac taking it before bedtime. This was a very long visit because of the patient's extensive history and because of her difficulty in relating the history probably related to her anxiety. She is very easily distracted and goes off on tangents and sometimes it is hard to know when to redirect her as at times the tangents do offer insight to the GI situation. Return office visit in 8 weeks Orders: Orders Rast Allergen 12/19/24 R19.5 - Other fecal abnormalities US abdomen complete 12/19/24 R10.9 - Unspecified abdominal pain Comprehensive Met. Panel 12/19/24 K21.9 - Gastro-esophageal reflux disease without esophagitis TSH reflex Free T4 12/19/24 K21.9 - Gastro-esophageal reflux disease without esophagitis Pancreatic Elastase-1 12/19/24 K21.9 - Gastro-esophageal reflux disease without esophagitis Complete Blood Count Auto Diff 12/19/24 K21.9 - Gastro-esophageal reflux disease without esophagitis Medications: New famotidine (Pepcid) 40 mg PO BEDTIME 30 tabs 6RF K21.9 - Gastro-esophageal reflux disease without esophagitis hyoscyamine sulfate (Levsin/SL) 0.125 mg PO BID PRN 60 tabs 3RF dyspepsia K58.9 - Irritable bowel syndrome, unspecified LABS Laboratory Tests 12/24/24 03/02/25 12:35 07:30 WBC 5.8 Hgb 12.4 Hct 35.6 L MCV 93.4 MCH 32.5 Estimated GFR > 60 Total Bilirubin 0.9 AST 37 H ALT 27 Alkaline Phosphatase 80 TSH 1.07 Stool Pancreat Elastase 168 L RAST PANEL SHOWS NO SIGNIFICANT FOOD ALLERGIES US ABD 02/18/25 Findings: Pancreas is obscured due to overlying bowel gas. The aorta and inferior vena cava are normal caliber. Liver is 11.3 cm in length. There is no intrahepatic bile duct dilatation. Common bile duct is 0.4 cm in diameter. Gallbladder wall thickness measures 0.3 cm. The main portal vein is patent. Right kidney is 10 cm in length. Cyst in the lower pole of the right kidney lateral aspect measuring 0.9 x 0.6 x 0.6 cm. Left kidney measures 9.2 cm in length. Linear twinkle artifact which may represent a calcified vessel in the lower pole of the left kidney. There is a left mid kidney nephrolithiasis measuring 0.3 cm. Spleen is 7.3 cm in length. No ascites. There are clustered nephrolithiasis measuring 0.4 x 0.5 x 0.3 cm in the lower pole. There is a mid kidney nephrolithiasis measuring 0.3 x 0.3 x 0.2 cm. IMPRESSION: 1. Pancreas is obscured due to overlying bowel gas. 2. There are clustered nephrolithiasis measuring 0.4 x 0.5 x 0.3 cm in the lower pole. There is a mid kidney nephrolithiasis measuring 0.3 x 0.3 x 0.2 cm. No hydronephrosis. 3. There is a left mid kidney nephrolithiasis measuring 0.3 cm. No hydronephrosis. TODAYS VISIT The patient is a 64-year-old female presenting with severe abdominal bloating, irritable bowel syndrome (IBS), and dyspepsia. She has faced gastrointestinal discomfort for some time, which her previous director of diagnostic imaging found challenging to manage. Her symptoms are somewhat relieved with Ativan. Among the diagnostic tests conducted, her CBC and renal panel were normal, while hepatic function tests showed a slight increase in AST. Thyroid levels were within normal limits, while pancreatic elastase was significantly low at 168, indicating possible Exocrine Pancreatic Insufficiency. No significant allergens were found through a RAST panel, and an abdominal ultrasound was negative for gallstones. The patient had been prescribed several medications to manage her symptoms, including Prilosec, Hyoscyamine, and famotidine, but faced challenges in adherence due to side effects and uncertainties in medication scheduling, particularly with dicyclomine. Considering her medical history, the likelihood of Exocrine Pancreatic Insufficiency is high, where an insufficiency in enzyme production is suggested by her diagnosis and her symptom profile. The patient's diet has significantly altered due to gastrointestinal issues. She maintains a dietary intake that avoids certain foods that cause reflux, particularly those with salad dressings. Due to lactose intolerance concerns, the patient consumes almond milk instead of dairy. She has previously consumed yogurt regularly due to its probiotic benefits but has been hesitant given her recent recommendations to avoid dairy. The patient consumes a modest portion of food at one time and has transitioned to almond milk for calcium intake over traditional dairy sources due to a history of kidney stones linked to calcium supplements. Food restrictions have been self-imposed based on the development of new intolerances post-menopause, without significant weight changes reported. - Take Creon as prescribed: 2 capsules twice daily with meals. - Continue famotidine as needed. - Consider trialing hyoscyamine on non-work days to assess tolerance. - Maintain a diet incorporating lactase-friendly dairy or supplements. - Try yogurt for its probiotic benefits; avoid high sugar types. - Avoid abrupt stopping of any medications without consulting. - Attend follow-up visit in eight weeks for reassessment. - Contact if difficulty in acquiring medication or if symptoms worsen. [facility] Medical History Hearing loss Seasonal allergic rhinitis Osteoporosis GERD (gastroesophageal reflux disease) Surgical History H/O lithotripsy H/O lumpectomy Family History Father Prostate CA Diabetes HTN (hypertension) Mother HTN (hypertension) Parkinson disease Dementia Sister Thyroid cancer Social History Alcohol intake: current Patient Tobacco Use Status: Never used Tobacco Review of Systems Const Denies fatigue, Denies fever(s), Denies night sweats, Denies poor appetite and Denies weight loss ENT Reports Normal hearing present, Denies dysphagia, Denies odynophagia, Denies throat swelling and Denies tongue swelling Card Reports no additional complaints Resp Reports no additional complaints GI Details: Reports abdominal pain, Denies melena, Reports bloating, Denies hematochezia, Denies constipation, Reports GI cramping, Denies dysphagia, Denies excessive flatus, Denies early satiety, Reports dyspepsia, Reports heartburn, Denies diarrhea, Reports loose stools, Denies nausea, Denies odynophagia, Denies vomiting and Denies hematemesis Skin/Breast Denies pruritus, Denies lesions, Denies rash and Denies jaundice Neuro Reports Normal hearing present and Denies Abnormal speech present Psych Reports anxiety Endo Denies fatigue Aller/Immun Reports GI upset with certain foods, Denies throat swelling and Denies tongue swelling Physical Exam Vital Signs: Last Vital Signs Pulse 76 03/12/25 11:37 BP 127/72 03/12/25 11:37 Pulse Ox 98 03/12/25 11:37 BMI result Body Mass Index 18.3 Const General: cooperative, no acute distress, well developed and well groomed Nutritional Appearance: average body habitus and well nourished Orientation/consciousness: oriented to person, oriented to place and oriented to time Limitations: No language barrier HEENT Head: Yes normocephalic and Yes atraumatic Eyes General: appearance normal, both eyes and all related structures Pupils: Equal, round and reactive pupils present Neck Neck: Yes normal visual inspection and Yes no lymphadenopathy Thyroid: Thyroid normal Resp Effort & Inspection: normal respiratory effort and able to speak in complete sentences Auscultation: clear to auscultation bilaterally Cardio Rate: regular rate Rhythm: regular rhythm Heart sounds: Normal, physiologic split S2 sound present Peripheral pulses: radial pulses present and posterior tibial pulses present GI Inspection: No distended and No Abdominal panniculus present Palpation (GI): Soft to palpation, nontender, no guarding, not rigid and No hepatosplenomegaly present Percussion: Yes normal to percussion Auscultation: normal bowel sounds Rectal Exam - Female: deferred Skin General skin exam: no rashes or lesions noted, turgor normal, skin not dry, no jaundice, No spider nevi and no striae Rashes: no rashes Nails: normal Neuro General: oriented to person, oriented to place and oriented to time Cranial nerves: Yes Equal, round and reactive pupils present and Yes Normal hearing present Speech: No Abnormal speech present Extrem General: Yes normal to inspection, No clubbing, No cyanosis and No edema Psych Appearance: grossly normal and well kempt Mental Status: mental status grossly normal Speech and movement: Normal speech and movement present Affect: Anxious affect present Attitude: cooperative Thought process: Normal thought process present and not confabulating Thought content: Normal thought content present Insight: Good insight present (Psych) Judgement: Good judgement present (Psych) Assessment & Plan Assessment & Plan (1) Exocrine pancreatic insufficiency: Code(s): K86.81 - Exocrine pancreatic insufficiency Category: Medical Plan: discussed with the patient the likely diagnosis of Exocrine Pancreatic Insufficiency and its management with Creon. I detailed the benefits of enzyme replacement therapy and its expected improvement in digestion and symptom relief. We went over the advantages of using Creon, with potential side effects mostly limited to rare allergic reactions, ensuring the patient was informed and consenting to this treatment course. I emphasized the importance of taking Creon with food and evaluating its effectiveness in symptom control. Regarding her IBS and dyspepsia, we considered altering medication to minimize previous cognitive side effects, including a trial of hyoscyamine and continuance of famotidine. Dietary guidance was provided on incorporating possible cheese options and yogurt while advising against sugary and less nutritionally beneficial foods. We scheduled a follow-up in eight weeks to assess the treatment's success and make any needed revisions. (2) IBS (irritable bowel syndrome): Code(s): K58.9 - Irritable bowel syndrome, unspecified Category: Medical (3) Flatulence: Code(s): R14.3 - Flatulence Category: Medical Plan The patient is a 64-year-old female presenting with severe abdominal bloating, irritable bowel syndrome (IBS), and dyspepsia. She has faced gastrointestinal discomfort for some time, which her previous director of diagnostic imaging found challenging to manage. Her symptoms are somewhat relieved with Ativan. Among the diagnostic tests conducted, her CBC and renal panel were normal, while hepatic function tests showed a slight increase in AST. Thyroid levels were within normal limits, while pancreatic elastase was significantly low at 168, indicating possible Exocrine Pancreatic Insufficiency. No significant allergens were found through a RAST panel, and an abdominal ultrasound was negative for gallstones. The patient had been prescribed several medications to manage her symptoms, including Prilosec, Hyoscyamine, and famotidine, but faced challenges in adherence due to side effects and uncertainties in medication scheduling, particularly with dicyclomine. Considering her medical history, the likelihood of Exocrine Pancreatic Insufficiency is high, where an insufficiency in enzyme production is suggested by her diagnosis and her symptom profile. The patient's diet has significantly altered due to gastrointestinal issues. She maintains a dietary intake that avoids certain foods that cause reflux, particularly those with salad dressings. Due to lactose intolerance concerns, the patient consumes almond milk instead of dairy. She has previously consumed yogurt regularly due to its probiotic benefits but has been hesitant given her recent recommendations to avoid dairy. The patient consumes a modest portion of food at one time and has transitioned to almond milk for calcium intake over traditional dairy sources due to a history of kidney stones linked to calcium supplements. Food restrictions have been self-imposed based on the development of new intolerances post-menopause, without significant weight changes reported. - Take Creon as prescribed: 2 capsules twice daily with meals. - Continue famotidine as needed. - Consider trialing hyoscyamine on non-work days to assess tolerance. - Maintain a diet incorporating lactase-friendly dairy or supplements. - Try yogurt for its probiotic benefits; avoid high sugar types. - Avoid abrupt stopping of any medications without consulting. - Attend follow-up visit in eight weeks for reassessment. - Contact if difficulty in acquiring medication or if symptoms worsen. Medications: New vimidq-bhiimzqq-rtriwzd 24,000-76,000 -120,000 unit (Creon) 2 caps PO BID 120 caps 6RF 30 days K58.9 - Irritable bowel syndrome, unspecified Coding Level of Care Code Est Pt Level 4 (57865) Diagnoses Exocrine pancreatic insufficiency K86.81 IBS (irritable bowel syndrome) K58.9 Flatulence R14.3 Time Spent (min) 38
--- OUTSIDE RECORDS SUMMARY | 2025-03-12 12:41 | XMS_ITS | Clinical Summary ---
Author Organization [facility] [address] [facility] Address [address] [place] [address] Phone Care Team Providers Care Respiratory Care Program Director Name Role Phone Mona Fernandez MD Primary [...] 025 Active FLUoxetine (PROzac) 10 mg tablet TAKE 1 TABLET(10 MG) BY MOUTH 1 TIME EACH DAY 90 tablet 1 025 Active FLUoxetine (PROzac) 10 mg tablet Take 1 tablet (10 mg total) by mouth 1 (one) time each day. 90 tablet 025 2024 Discontinued(R eorder) FLUoxetine (PROzac) 10 mg tablet Take 1 tablet (10 mg total) by mouth 1 (one) time each day. 90 tablet 025 2024 Discontinued Active Problems Problem Noted Date Diagnosed Date Umbilical hernia 02/15/2021 Snoring 01/26/2021 Overview (05/04/2024): 12/2020 Home Sleep Study did not reveal sleep apnea or nocturnal hypoxia. Microcalcifications of the breast 07/10/2018 Overview (05/04/2024): Left, near right lumpectomy site 07/09/18, [facility] will recall patient for additional imaging [...] 01/08/2025 8:30 AM EDT Office Visit Endocrinology [address] [phone] Kishor Courtney MD Age-related osteoporosis without current pathological fracture (Primary Dx) 01/06/2025 Telephone Endocrinology - [address] [phone] Kishor Courtney MD Referral (Endo) 01/05/2025 2:30 PM EDT Consult Orthopedic Surgery - [place] [address] [place] [address] Natalie Nielson PA Trigger finger of left thumb 01/01/2025 2:00 PM EDT Office Visit Adult [facility] [address] [place] [address] Emilie Dolan PA Bilateral impacted cerumen (Primary Dx) 12/10/2024 9:45 AM EDT - 12/10/2024 11:59 PM EDT Hospital Encounter Xray - [address] [phone] Metacarpophalangeal joint pain of left hand Discharge Disposition: Home or Self Care 12/10/2024 8:45 AM EDT Office Visit [address] [id number] Lobo Ji PA Anxiety (Primary Dx); Gastroesophageal [...] normal historic UPPER GASTROINTESTINAL ENDOSCOPY 2007 PROCEDURE: AL UPPER GI ENDOSCOPY PERFORMED OTHER SURGICAL HISTORY [...] 9:00 AM EST Office Visit Adult Medicine [facility] [address] [place] [phone] Mona Fernandez MD [address] [place] [address] 09/24/2025 8:00 AM EST Office Visit Endocrinology - [place] [address] [place] [address] Kaity Singleton PA [address] [place] [address] Health Maintenance Due Date Last Done Comments Zoster Vaccines (1 of 2) 1980 Pneumococcal Vaccine: 50+ Years (1 of 1 - PCV) 10/11/2011 HIV Screening 07/08/2022 Social Influencers of Health Screening 07/08/2022 DTaP,Tdap,and Td Vaccines (2 - Td or Tdap) 12/12/2023 12/11/2013 Cervical Cancer Screening: Pap Smear 05/11/2024 05/11/2021 Depression Screening 07/30/2024 COVID-19 Vaccine (9 - Pfizer risk season) [...] Procedure Name Priority Date/Time Associated Diagnosis Comments AL INJECTION SINGLE TENDON SHEATH OR LIGAMENT APONEUROSIS Routine 01/05/2025 2:30 PM EDT Trigger finger of left thumb AL REMOVAL CERUMEN IMPACTED IRRIGATION/LAVAGE UNILATERAL Routine 01/01/2025 [...] Recently Relevant to Health Maintenance Results * AL INJECTION SINGLE TENDON SHEATH OR LIGAMENT APONEUROSIS [...] with patient: Verbal Pre-procedure timeout performed: yes us Natalie BROWN IN CLINIC/BEDSIDE ORDERABLES Final Result * AL REMOVAL CERUMEN IMPACTED IRRIGATION/LAVAGE UNILATERAL (01/01/2025 2:20 [...] Signed Date: 12/10/2024 15:37 ET Workstation ID: [id number] Transcribed By: Self Edit Transcribed Date: 12/10/2024 [...] Signed Date: 12/10/2024 15:37 ET Workstation ID: [id number] Transcribed By: Self Edit Transcribed Date: 12/10/2024 15:36 ET us Lobo BROWN IMG XR PROCEDURES Final Resul t * Lipid panel with reflex to direct LDL (06/18/2024 4:34 PM EST) Cholesterol 195 0 - 200 mg/dL LAB CHEMISTRY METHOD 06/18/2024 7:15 PM [facility] Triglycerides 96 0 - 150 mg/dL LAB CHEMISTRY METHOD 06/18/2024 7:15 PM [facility] HDL 100 >=40 mg/dL LAB CHEMISTRY METHOD 06/18/2024 7:15 PM [facility] LDL Calculated 76 0 - 100 mg/dL LAB CHEMISTRY METHOD 06/18/2024 7:15 PM [facility] VLDL Cholesterol Dirk 19.2 mg/dL LAB CHEMISTRY METHOD 06/18/2024 7:15 PM [facility] Non HDL Chol. (LDL+VLDL) 95 <145 mg/dL LAB CHEMISTRY METHOD 06/18/2024 7:15 PM [facility] Chol/HDL Ratio 2.0 0.0 - 4.4 LAB CHEMISTRY METHOD 06/18/2024 7:15 PM [facility] Blood Venous blood specimen / Unknown Venipuncture / Unknown 06/18/2024 4:34 PM EST 06/18/2024 4:34 PM EST us Mona Fernandez MD LAB BLOOD ORDERABLES F inal Result [facility] [address] [place] [address], * Colonoscopy (01/08/2024) Colonoscopy No Interpretation , Abstracted Anatomical Region Laterality Modality Other us Historical Provider HEALTH MAINTENANCE Final Result * Hepatitis C Screening (12/12/2023) Hepatitis C Screening Abstracted Historical Provider MD HEALTH MAINTENANCE Final Result * DXA BONE [...] screening schedule based on maximino Moseley al., [facility] August 17, 2011 for patients with [...] smear No Interpretation , Abstracted Historical Provider HEALTH MAINTENANCE Final Result from Last 3 Months or Most Recently Relevant to Health Maintenance Insurance [facility] Care Teams Respiratory Care Program Director Relationship Specialty Start Date End Date Mona Fernandez MD [address] [place] [id number] PCP - General Internal Medicine 03/03/22
== END 2025-03-12 12:58 | disposition home or self-care (01) ==
LOC: HO.HGI 11:36
PROVIDERS: PCP Family Medicine; Visit Provider Nurse Practitioner
DX: K86.81 Exocrine pancreatic insufficiency (principal); K58.9 Irritable bowel syndrome, unspecified; R14.3 Flatulence
CPT/HCPCS: 99214

== ENCOUNTER 2025-03-31 11:09 | Outpatient (AMB) | payer BC, SELFPAY ==
--- NOTE | 2025-03-31 11:10 | A.OFFVIS_ITS ---
Intake Visit Reasons: 6m followup Intake Note: Patient is present for 6M F/U Urology Medication:VITAMIN B6 Antibiotic Allergy:NONE Blood Thinner:NONE Hospital Social Worker Required: No Allergies No Known Allergies (No Known Allergies*) Allergy (Verified 03/31/25 11:28) Medication List - Last Reconciled 03/31/25 by JUS Barboza cholecalciferol (vitamin D3) 100 mcg PO DAILY dicyclomine 10 mg PO Q6H PRN famotidine (Pepcid) 40 mg PO BEDTIME fluoxetine (Prozac) 10 mg PO DAILY hyoscyamine sulfate (Levsin/SL) 0.125 mg PO BID PRN [id number]-gkjzebkz-aubmhur 24,000-76,000 -120,000 unit (Creon) 2 caps PO BID 30 days loratadine (Claritin) 10 mg PO DAILY pyridoxine (vitamin B6) 100 mg PO DAILY 90 days HPI Comments Details: Ivet Garcia is a very pleasant 64-year-old female patient of Dr. Myers. She has a past medical history of osteoporosis, GERD, and seasonal allergies. She is being followed up on today via telehealth for her history of nephrolithiasis. Recent renal imaging results reviewed with the patient today. 03/23 bilateral kidneys are normal in size and echotexture. There are no renal masses or hydronephrosis noted bilaterally. Right kidney with multiple nonobstructing calculi measuring up to 5 mm in size. Left kidney with a cluster of tiny nonobstructing calculi. In discussion with the patient today she denies having had any bothersome urinary issues or concerns since her last office visit here. She reports compliance with vitamin B6 and adding lemon juice to water daily. She denies urinary urgency, urinary frequency, incontinence, nocturia, hematuria, dysuria, foul smelling urine, changes to urinary stream, flank pain, fever, and or chills. She is happy with her current voiding parameters. She has a previous surgical history for nephrolithiasis in 2013 and again in 2019. When asked she reports to be attempting to drink plenty of water daily. She otherwise offers no other issues or concerns at this time. [facility] Medical History Hearing loss Seasonal allergic rhinitis Osteoporosis GERD (gastroesophageal reflux disease) Surgical History H/O lithotripsy H/O lumpectomy Family History Father Prostate CA Diabetes HTN (hypertension) Mother HTN (hypertension) Parkinson disease Dementia Sister Thyroid cancer Social History Alcohol intake: current Patient Tobacco Use Status: Never used Tobacco Review of Systems Const All systems reviewed & are unremarkable except as noted in HPI and below Eyes Reports no additional complaints ENT Reports no additional complaints Card Reports no additional complaints Resp Reports no additional complaints GI Reports as per HPI Reports as per HPI Musc Reports no additional complaints Neuro Reports no additional complaints Psych Reports no additional complaints Endo Reports no additional complaints Chato/Lymph Reports no additional complaints Aller/Immun Reports no additional complaints Physical Exam Const General: cooperative Orientation/consciousness: patient oriented x3 Resp Effort & Inspection: able to speak in complete sentences Neuro General: patient oriented x3 Psych Speech and movement: Clear speech present Attitude: cooperative Thought process: Normal thought process present Thought content: Normal thought content present Insight: Fair insight present (Psych) Judgement: Fair judgement present (Psych) Telehealth Telehealth Telehealth Platform: Telephone Location of provider rendering services: practice address Location of patient: address on file Patient Identification confirmed using: Name, : Yes Telehealth method: voice only Patient verbally consented to treatment: Yes Patient verbally consented to billing insurance company: Yes Patient informed of any privacy concerns related to visit: Yes Minutes spent on Phone/Video with Pt.: 15 Results Reviewed Results Reviewed: Date of Service: 03/02/25 Procedure(s): US renal BI FINDINGS: Right kidney: The right kidney measures 9.8 x 2.6 x 4.8 cm. Renal parenchymal echotexture and thickness are normal. There are no masses. There are multiple nonobstructing calculi measuring up to 5 mm in size at the lower pole. There is no hydronephrosis. Left Kidney: The left kidney measures 9.5 x 3.0 x 3.9 cm. Renal parenchymal echotexture and thickness are normal. There are no masses. There are clusters of tiny nonobstructing calculi. There is no hydronephrosis. IMPRESSION: Bilateral nephrolithiasis. No hydronephrosis. Assessment & Plan Assessment & Plan (1) Nephrolithiasis: Code(s): N20.0 - Calculus of kidney Category: Medical Plan Recent renal imaging results reviewed with the patient today; as noted above. Discussed further metabolic workup with 24 hour urine collection and labs however patient declines at this time. Will continue with surveillance monitoring of nephrolithiasis. Discussed, educated, and stressed the importance of continuing to drink plenty of water daily. Continue adding 1 oz of lemon juice to water daily. Continue vitamin B6 Patient currently denies any bothersome urinary issues or concerns. She reports be happy with current voiding parameters. Will obtain renal ultrasound in 6 months. Follow-up in 6 months with imaging to be completed prior; or sooner with any issues, concerns, and or questions. Orders: Orders US renal BI 6 Months N20.0 - Calculus of kidney Patient Instructions: The patient had an opportunity to ask questions regarding the treatment plan. All questions were answered. Physical exam, labs, and imaging were discussed and reviewed in detail. As well as risks, benefits, and discussion of treatment choices. No major barriers to understanding were identified. The patient expressed understanding and agreement with the above treatment plan. The patient was made aware they should contact our office by phone for worsening of their current condition, the appearance of new symptoms, or with any questions or concerns. Compliance is encouraged with any medications and follow up testing that is ordered. It is a privilege to be allowed the opportunity to participate in? your urological care.? Again, if you have any questions or concerns If you have any questions or concerns please do not hesitate to contact me. The office is [phone]. This note is constructed using voice recognition software. While every effort has been made to ensure accuracy safety fire boss errors may have been included. Yours sincerely, JUS Barboza Coding Level of Care Code Tele Est Pt Level 3 (15182) Diagnoses Nephrolithiasis N20.0
--- OUTSIDE RECORDS SUMMARY | 2025-03-31 12:43 | XMS_ITS | Clinical Summary ---
Author Organization [facility] [address] [facility] Address [address] [place] [address] Phone Care Team Providers Care Early Childhood Specialist Name Role Phone Mona Fernandez MD [...] (05/04/2024): Left, near right lumpectomy site 07/09/18, [facility] will recall patient for additional imaging [...] 01/08/2025 8:30 AM EDT Office Visit Endocrinology [address] [phone] Kishor Courtney MD Age-related osteoporosis without current pathological fracture (Primary Dx) 01/06/2025 Telephone Endocrinology - [place] [id number] [place] [address] Kishor Courtney MD 01/05/2025 2:30 PM EDT Consult Orthopedic Surgery - [place] [address] [place] [address] Natalie Nielson PA Trigger finger of left thumb 01/01/2025 2:00 PM EDT Office Visit Adult Medicine [facility] [address] [place] [address] Emilie Dolan PA Bilateral impacted cerumen (Primary Dx) from Last 3 Months Immunizations Name Administration [...] 0.5 mL or 0.25 mL dosage 05/14/2022 Posto7 SARS-CoV-2 COVID-19, mRNA, LNP-S, preservative free 05/04/2022,06/22/2021,06/19/2021 Tdap Tetanus diptheria acell ular pertussis (Boostrix; Adacel) 7yo and older 12/11/2013 Surgical History Surgery Date Site/Laterality Comments BREAST LUMPECTOMY 04/09/08 PROCEDURE: HISTORICAL BREAST LUMPECTOMY CATARACT EXTRACTION 08/2009, 09/2009 PROCEDURE: HISTORICAL CATARACT REMOVAL; COMMENT: bilateral COLONOSCOPY 2007, 04/2013 PROCEDURE: HISTORICAL COLONOSCOPY; COMMENT: normal historic UPPER GASTROINTESTINAL ENDOSCOPY 2007 PROCEDURE: AR UPPER GI ENDOSCOPY PERFORMED OTHER SURGICAL HISTORY [...] 9:00 AM EST Office Visit Adult Medicine [address] [phone] Mona Fernandez MD [address] [place], [place] 09/24/2025 8:00 AM EST Office Visit [facility] [address] [place] [address] Kaity Singleton PA [address] [place] [address] Health Maintenance Due Date Last Done Comments Zoster Vaccines (1 of 2) 1980 Pneumococcal Vaccine: 50+ Years (1 of 1 - PCV) 10/11/2011 HIV Screening 07/08/2022 Social Influencers of Health Screening 07/08/2022 DTaP,Tdap,and Td Vaccines (2 - Td or Tdap) 12/12/2023 12/11/2013 Cervical Cancer Screening: Pap Smear 05/11/2024 05/11/2021 Depression Screening 07/30/2024 COVID-19 Vaccine (9 - Pfizer risk 2023- season) 2025 04/28/2024, 05/18/2023, 05/14/2022, Additional history exists Influenza [...] Procedure Name Priority Date/Time Associated Diagnosis Comments EXTERNAL CLINICAL LAB 03/02/2025 AR INJECTION SINGLE TENDON SHEATH OR LIGAMENT APONEUROSIS Routine 01/05/2025 2:30 PM EDT Trigger finger of left thumb AR REMOVAL CERUMEN IMPACTED IRRIGATION/LAVAGE UNILATERAL Routine 01/01/2025 2:20 PM EDT Bilateral impacted cerumen LIPID PANEL WITH REFLEX TO DIRECT LDL [...] Recently Relevant to Health Maintenance Results * External clinical lab (03/02/2025) us Provider [facility] LAB BLOOD ORDERABLES Fin al Result * AR INJECTION SINGLE TENDON SHEATH OR LIGAMENT APONEUROSIS (01/05/2025 2:30 PM EDT) Narrative Natalie Nielson PA - 01/05/2025 2:30 PM EDT KEVIN [...] BROWN IN CLINIC/BEDSIDE ORDERABLES Final Result * AR REMOVAL CERUMEN IMPACTED IRRIGATION/LAVAGE UNILATERAL (01/01/2025 2:20 [...] of procedure: Tolerated well, no immediate complications Emilie BROWN IN CLINIC/BEDSIDE ORDERABL ES Final Result * Lipid panel with reflex to direct LDL (06/18/2024 4:34 PM EST) [facility] Cholesterol 195 0 - 200 mg/dL LAB CHEMISTRY METHOD 06/18/2024 7:15 PM EST [facility] Triglycerides 96 0 - 150 mg/dL LAB CHEMISTRY METHOD 06/18/2024 7:15 PM EST [facility] HDL 100 >=40 mg/dL LAB CHEMISTRY METHOD 06/18/2024 7:15 PM EST [facility] LDL Calculated 76 0 - 100 mg/dL LAB CHEMISTRY METHOD 06/18/2024 7:15 PM EST [facility] VLDL Cholesterol Dirk 19.2 mg/dL LAB CHEMISTRY METHOD 06/18/2024 7:15 PM EST [facility] Non HDL Chol. (LDL+VLDL) 95 <145 mg/dL LAB CHEMISTRY METHOD 06/18/2024 7:15 PM EST [facility] Chol/HDL Ratio 2.0 0.0 - 4.4 LAB CHEMISTRY METHOD 06/18/2024 7:15 PM EST [facility] Blood Venous blood specimen / Unknown Venipuncture / Unknown 06/18/2024 4:34 PM EST 06/18/2024 4:34 PM EST Mona Fernandez MD LAB BLOOD ORDERABLES F inal Result [facility] [address] [place] [address], [place] [phone] * Colonoscopy (01/08/2024) [facility] Colonoscopy No Interpretation , Abstracted Anatomical Region Laterality Modality Other Historical Provider HEALTH MAINTENANCE Final Result * Hepatitis C Screening (12/12/2023) [facility] Hepatitis C Screening Abstracted Historical Provider HEALTH [...] IMPRESSION: IMPRESSION: Osteopenia by WHO criteria. [facility] Department of Internal Medicine recommends using [...] alternative screening schedule based on jose Moseley., [facility] August 17, 2011 for patients [...] IMPRESSION: IMPRESSION: Osteopenia by WHO criteria. [facility] Department of Internal Medicine recommendsusing National [...] Most Recently Relevant to Health Maintenance Insurance [facility] Care Teams Early Childhood Specialist Relationship Specialty Start Date End Date Mona Fernandez MD [address] [place] [id number] PCP - General Internal Medicine 03/03/22
== END 2025-03-31 11:47 | disposition home or self-care (01) ==
LOC: HO.HUSH 11:09
PROVIDERS: PCP Family Medicine; Visit Provider Nurse Practitioner Family
DX: N20.0 Calculus of kidney (principal)
CPT/HCPCS: 99213

== ENCOUNTER 2025-05-15 16:07 | Outpatient (AMB) | payer BC, SELFPAY ==
[2025-05-15 16:09] VITALS: BP 105/54; PULSE 75; O2SAT 98; BMI 18.2
--- NOTE | 2025-05-15 16:09 | A.OFFVIS_ITS ---
Vital Signs 05/15/25 16:09 Height 4 ft 11 in Weight 90 lb BMI 18.2 BP 105/54 L Blood Pressure Location Lt brachial Position Sitting Pulse 75 Pulse Oximetry (%) 98 Oxygen Delivery Method Room Air Intake Visit Reasons: 2 mos FUV. Intake Note: Patient 2 month follow up for Exocrine pancreatic insufficiency Patient denies any GI isues for today. Manager Field Service Required: No Accompanied by: Self / Same As Patient Allergies No Known Allergies (No Known Allergies*) Allergy (Verified 05/15/25 16:09) HPI HPI 2 mos FUV.: Details: Assessment & Plan (1) Exocrine pancreatic insufficiency: Code(s): K86.81 - Exocrine pancreatic insufficiency Category: Medical Plan: discussed with the patient the likely diagnosis of Exocrine Pancreatic Insufficiency and its management with Creon. I detailed the benefits of enzyme replacement therapy and its expected improvement in digestion and symptom relief. We went over the advantages of using Creon, with potential side effects mostly limited to rare allergic reactions, ensuring the patient was informed and consenting to this treatment course. I emphasized the importance of taking Creon with food and evaluating its effectiveness in symptom control. Regarding her IBS and dyspepsia, we considered altering medication to minimize previous cognitive side effects, including a trial of hyoscyamine and continuance of famotidine. Dietary guidance was provided on incorporating possible cheese options and yogurt while advising against sugary and less nutritionally beneficial foods. We scheduled a follow-up in eight weeks to assess the treatment's success and make any needed revisions. (2) IBS (irritable bowel syndrome): Code(s): K58.9 - Irritable bowel syndrome, unspecified Category: Medical (3) Flatulence: Code(s): R14.3 - Flatulence Category: Medical Plan The patient is a 64-year-old female presenting with severe abdominal bloating, irritable bowel syndrome (IBS), and dyspepsia. 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 Her symptoms are somewhat relieved with Ativan. Among the diagnostic tests conducted, her CBC and renal panel were normal, while hepatic function tests showed a slight increase in AST. Thyroid levels were within normal limits, while pancreatic elastase was significantly low at 168, indicating possible Exocrine Pancreatic Insufficiency. No significant allergens were found through a RAST panel, and an abdominal ultrasound was negative for gallstones. The patient had been prescribed several medications to manage her symptoms, including Prilosec, Hyoscyamine, and famotidine, but faced challenges in adherence due to side effects and uncertainties in medication scheduling, particularly with dicyclomine. Considering her medical history, the likelihood of Exocrine Pancreatic Insufficiency is high, where an insufficiency in enzyme production is suggested by her diagnosis and her symptom profile. The patient's diet has significantly altered due to gastrointestinal issues. She maintains a dietary intake that avoids certain foods that cause reflux, particularly those with salad dressings. Due to lactose intolerance concerns, the patient consumes almond milk instead of dairy. She has previously consumed yogurt regularly due to its probiotic benefits but has been hesitant given her recent recommendations to avoid dairy. The patient consumes a modest portion of food at one time and has transitioned to almond milk for calcium intake over traditional dairy sources due to a history of kidney stones linked to calcium supplements. Food restrictions have been self-imposed based on the development of new intolerances post-menopause, without significant weight changes reported. - Take Creon as prescribed: 2 capsules twice daily with meals. - Continue famotidine as needed. - Consider trialing hyoscyamine on non-work days to assess tolerance. - Maintain a diet incorporating lactase-friendly dairy or supplements. - Try yogurt for its probiotic benefits; avoid high sugar types. - Avoid abrupt stopping of any medications without consulting. - Attend follow-up visit in eight weeks for reassessment. - Contact if difficulty in acquiring medication or if symptoms worsen. Medications: New gvyfbp-xztvssne-tunvmhi 24,000-76,000 -120,000 unit (Creon) 2 caps PO BID 120 caps 6RF 30 days K58.9 - Irritable bowel syndrome, unspecified [facility] Medical History (Updated 05/15/25 @ 18:07 by KELL Fernandez) Abdominal pain Loose stools Flatulence Food intolerance Hearing loss Seasonal allergic rhinitis Osteoporosis GERD (gastroesophageal reflux disease) Surgical History (Updated 05/15/25 @ 16:31 by KELL Fernandez) H/O colonoscopy H/O lithotripsy H/O lumpectomy Family History Father Prostate CA Diabetes HTN (hypertension) Mother HTN (hypertension) Parkinson disease Dementia Sister Thyroid cancer Social History Alcohol intake: current Patient Tobacco Use Status: Never used Tobacco Review of Systems Const Denies fatigue, Denies fever(s), Denies night sweats, Denies poor appetite and Denies weight loss ENT Reports Normal hearing present, Denies dental pain, Denies dysphagia, Denies hearing loss, Denies mouth pain, Denies odynophagia, Denies throat swelling, Denies tongue swelling and Reports other (Dentition adequate) Card Reports no additional complaints Resp Reports no additional complaints GI Details: Denies abdominal pain, Denies melena, Reports bloating, Denies hematochezia, Denies constipation, Reports GI cramping, Denies dysphagia, Denies excessive flatus, Denies early satiety, Denies heartburn, Denies diarrhea, Reports loose stools, Denies nausea, Denies odynophagia, Denies vomiting and Denies hematemesis Skin/Breast Denies pruritus, Denies lesions, Denies rash and Denies jaundice Neuro Reports Normal hearing present and Denies Abnormal speech present Endo Denies fatigue Aller/Immun Denies throat swelling and Denies tongue swelling Physical Exam Vital Signs: Last Vital Signs Pulse 75 05/15/25 16:09 BP 105/54 L 05/15/25 16:09 Pulse Ox 98 05/15/25 16:09 Oxygen Delivery Method Room Air 05/15/25 16:09 BMI result Body Mass Index 18.2 Const General: cooperative, no acute distress, well developed and well groomed Nutritional Appearance: well nourished, obese and overweight Orientation/consciousness: oriented to person, oriented to place and oriented to time Limitations: No language barrier, ambulation with cane, ambulation with walker and wheelchair HEENT Head: Yes normocephalic and Yes atraumatic Eyes General: appearance normal, both eyes and all related structures Pupils: Equal, round and reactive pupils present Neck Neck: Yes normal visual inspection and Yes no lymphadenopathy Thyroid: Thyroid normal Resp Effort & Inspection: normal respiratory effort and able to speak in complete sentences Auscultation: clear to auscultation bilaterally Cardio Rate: regular rate Rhythm: regular rhythm Heart sounds: Normal, physiologic split S2 sound present Peripheral pulses: radial pulses present and posterior tibial pulses present GI Inspection: No distended and No Abdominal panniculus present Palpation (GI): Soft to palpation, nontender, no guarding, not rigid, No hepatosplenomegaly present and Hepatosplenomegaly present Percussion: Yes normal to percussion Auscultation: normal bowel sounds Rectal Exam - Female: deferred Skin General skin exam: no rashes or lesions noted, turgor normal, skin not dry, no jaundice, No spider nevi and no striae Rashes: no rashes Nails: normal Neuro General: oriented to person, oriented to place and oriented to time Cranial nerves: Yes Equal, round and reactive pupils present and Yes Normal hearing present Speech: No Abnormal speech present Extrem General: Yes normal to inspection, No clubbing, No cyanosis and No edema Psych Thought process: Normal thought process present and not confabulating Thought content: Normal thought content present Insight: Good insight present (Psych) Judgement: Good judgement present (Psych) Assessment & Plan Assessment & Plan (1) Exocrine pancreatic insufficiency: Code(s): K86.81 - Exocrine pancreatic insufficiency Category: Medical Plan (pancreatic elastase was significantly low at 168. Current prescribe GI medications are hyoscyamine, Creon, and famotidine. In the past we use dicyclomine but she had some side effects her unpleasant.) Fortunately, adding the Creon has made a significant difference in all of her symptoms! She is now able to eat a wider range of foods including pizza and some cheese products. She likes eating yogurt for her calcium intake, but she did have an episode of softer stools and upset stomach which she thinks might have been related to eating too much of it. I also let her know that I do not think it is the lactase that is bothering her and this situation, it maybe there body is reacting to the culture/microbes in an odd way treating them as as foreign invaders. I have seen this happens sometimes with other people. She is going to try reintroducing it in the future and see how it goes. She also found to hyoscyamine extremely helpful and it has not had the bad impact on her memory as much as the dicyclomine did. She does have some instances where she forgets what she is talking about but it seems to be more related to distraction than an actual neurologic problem. I also let her know that we could consider increasing the Creon going forward but she wants to continue with this dose for now. While she has not gained any significant weight, she has not lost any and this is good because that was a big concern for her. Return office visit in 8 weeks Coding Level of Care Code Est Pt Level 3 (04680) Diagnoses Exocrine pancreatic insufficiency K86.81
--- OUTSIDE RECORDS SUMMARY | 2025-05-15 18:22 | XMS_ITS | Clinical Summary ---
Author Organization [facility] [address] [facility] Address [address] [place] [address] Phone Care Team Providers Care Inventory Administrator Name Role Phone Mona Fernandez MD Primary [...] 25 Active FLUoxetine (PROzac) 10 mg tablet TAKE 1 TABLET(10 MG) BY MOUTH 1 TIME EACH DAY 90 tablet 1 03/09/20 25 Active Active Problems Problem Noted Date Diagnosed Date Umbilical hernia 02/15/2021 Snoring 01/26/2021 Overview (05/04/2024): 12/2020 Home Sleep Study did not reveal sleep apnea or nocturnal hypoxia. Microcalcifications of the breast 07/10/2018 Overview (05/04/2024): Left, near right lumpectomy site 07/09/18, [facility] will recall patient for additional imaging [...] Encounters Date Type Department Care Team Description 04/14/2025 Telephone Adult Medicine [address] [phone] Mona Fernandez MD from Last 3 Months Immunizations Immunization Administration Dates Next Due Influenza Quadravalent, MDCK [...] normal historic UPPER GASTROINTESTINAL ENDOSCOPY 2007 PROCEDURE: [place] UPPER GI ENDOSCOPY PERFORMED OTHER SURGICAL HISTORY [...] 9:00 AM EST Office Visit Adult Medicine [facility] [address] [place] [address] Mona Fernandez MD [address] [place] [address] 09/24/2025 8:00 AM EST Office Visit Endocrinology [address] [phone] Kaity Singleton PA [address] [place] [phone] Health Maintenance Due Date Last Done Comments Zoster Vaccines (1 of 2) 1980 Pneumococcal Vaccine: 50+ Years (1 of 1 - PCV) 10/11/2011 HIV Screening 07/08/2022 Social Influencers of Health Screening 07/08/2022 DTaP,Tdap,and Td Vaccines (2 - Td or Tdap) 12/12/2023 12/11/2013 Cervical Cancer Screening: Pap Smear 05/11/2024 05/11/2021 Depression Screening 07/30/2024 COVID-19 Vaccine (9 - Pfizer risk season) 2025 04/28/2024, 05/18/2023, 05/14/2022, Additional history [...] Associated Diagnosis Comments EXTERNAL CLINICAL LAB 03/02/2025 LIPID PANEL WITH REFLEX TO DIRECT LDL [...] Maintenance Results * External clinical lab (03/02/2025) Provider [facility] LAB BLOOD ORDERABLES Fin al Result * Lipid panel with reflex to direct LDL (06/18/2024 4:34 PM EST) Cholesterol 195 0 - 200 mg/dL LAB CHEMISTRY METHOD 06/18/2024 7:15 PM EST [facility] Triglycerides 96 0 - 150 mg/dL LAB CHEMISTRY METHOD 06/18/2024 7:15 PM EST [facility] HDL 100 >=40 mg/dL LAB CHEMISTRY METHOD 06/18/2024 7:15 PM EST [facility] LDL Calculated 76 0 - 100 mg/dL LAB CHEMISTRY METHOD 06/18/2024 7:15 PM EST [facility] VLDL Cholesterol Dirk 19.2 mg/dL LAB CHEMISTRY METHOD 06/18/2024 7:15 PM EST [facility] Non HDL Chol. (LDL+VLDL) 95 <145 mg/dL LAB CHEMISTRY METHOD 06/18/2024 7:15 PM EST [facility] Chol/HDL Ratio 2.0 0.0 - 4.4 LAB CHEMISTRY METHOD 06/18/2024 7:15 PM EST [facility] Blood Venous blood specimen / Unknown Venipuncture / Unknown 06/18/2024 4:34 PM EST 06/18/2024 4:34 PM EST Mona Fernandez MD LAB BLOOD ORDERABLES F inal Result [facility] [address] [place] [address], [place] [phone] * Colonoscopy (01/08/2024) Colonoscopy No Interpretation , [...] IMPRESSION: IMPRESSION: Osteopenia by WHO criteria. [facility] Department of Internal Medicine recommends using [...] alternative screening schedule based on jose Moseley., [facility] August 17, 2011 for patients [...] IMPRESSION: IMPRESSION: Osteopenia by WHO criteria. [facility] Department of Internal Medicine recommendsusing National [...] Health Maintenance Insurance [facility] Care Teams Inventory Administrator Relationship Specialty Start Date End Date Mona Fernandez MD [address] [place] [phone] PCP - General Internal Medicine 03/03/22
== END 2025-05-15 18:56 ==
LOC: HO.HGI 16:08
PROVIDERS: PCP Family Medicine; Visit Provider Nurse Practitioner
DX: K86.81 Exocrine pancreatic insufficiency (principal)
CPT/HCPCS: 99213